=== PATIENT | female | born 1945 | race Caucasian/White ===

== ENCOUNTER 2017-09-10 12:46 | Inpatient (IN) | payer OTHER ==
[~2017-09-10] VITALS: Ht 157.5 cm; Wt 120.5 kg
[2017-09-10] MEDS ORDERED: PANTOPRAZOLE 40 MG/10 ML VIAL IV STA (12:53)
[2017-09-10] MEDS ORDERED: SODIUM CHLORIDE 0.9% 500 ML IVB ONE (12:53)
[2017-09-10] MEDS ORDERED: ONDANSETRON HCL 4 MG/2 ML VIAL IV ONE (13:00)
[2017-09-10 14:25] LABS: Basophils # (auto) 0.1 uL; Hemoglobin 11.4 g/dL (12.2-16.2); Lymphocytes # (auto) 3.5 uL; Monocytes # (auto) 0.7 uL; Nucleated Red Blood Cells % 0.1 %
[2017-09-10 14:26] LABS: Basophils % (auto) 0.6 % (0.0-2.0); Eosinophils # (auto) 0.2 uL; Eosinophils % (auto) 1.4 % (0.0-7.0); Hematocrit 35.1 % (36.0-46.0); Lymphocytes % (auto) 31.1 % (10.0-50.0); Mean Corpuscular Hemoglobin 29.1 pg (28.0-32.0); Mean Corpuscular Hgb Conc. 32.6 g/dL (32.0-36.0); Mean Corpuscular Volume 89.3 fL (80.0-100.0); Monocytes % (auto) 6.4 % (0.0-12.0); Neutrophils # (auto) 6.8 uL; Neutrophils % (auto) 60.5 % (37.0-80.0); Platelet Count (auto) 536 10^3/uL (140-450); Red Blood Cells 3.93 10^6/uL (4.0-5.20); Red Cell Distribution Width 15.5 % (11.8-14.3); White Blood Cell 11.3 10^3/uL (4.4-10.8)
[2017-09-10 14:54] LABS: Albumin 3.4 g/dL (3.4-5.0); BUN/Creatinine Ratio 15.8; Bilirubin, Total 0.5 mg/dL (0.2-1.0); Calcium 9.1 mg/dL (8.5-10.1); Total Protein 7.9 g/dL (6.4-8.2)
[2017-09-10 15:06] LABS: Potassium 2.9 mmol/L (3.5-5.1)
[2017-09-10 15:09] LABS: Urine Bacteria NONE SEEN /hpf (None Seen); Urine Blood Negative /uL (Negative); Urine Mucus FEW (None Seen); Urine WBC 4 /hpf (0 - 5)
[2017-09-10] MEDS ORDERED: POTASSIUM CHL 20MEQ/100ML 100 ML IV ONE (15:15)
[2017-09-10] MEDS: MORPHINE SULFATE 4 MG/ML SYR/VIAL IV PRN ×2 (19:03→23:25)
[2017-09-10] MEDS ORDERED: ALBUAER3 IN (19:46)
[2017-09-10] MEDS ORDERED: CALC-440 PO (19:46)
[2017-09-10] MEDS ORDERED: INDO50CA82 PO (19:46)
[2017-09-10] MEDS ORDERED: NITR0.4S29 SL (19:46)
[2017-09-10] MEDS ORDERED: DULO60CA PO (19:46)
[2017-09-10] MEDS ORDERED: HYDR25TA4 PO (19:46)
[2017-09-10 20:00] VITALS: BP 143/74
[2017-09-10] MEDS: D5W/SOD CHL 0.45%/KCL 20MEQ 1,000 ML IV SCH (21:36)
[2017-09-10] MEDS: metroNIDAZOLE 500MG/100ML 100 ML IV SCH (21:36)
[2017-09-10 22:00] VITALS: BP 143/74
[2017-09-11] VITALS (7 sets, daily range): BP systolic 115–125; BP diastolic 65–73
[2017-09-11] MEDS: MORPHINE SULFATE 4 MG/ML SYR/VIAL IV PRN ×3 (04:07→21:45)
[2017-09-11] MEDS: metroNIDAZOLE 500MG/100ML 100 ML IV SCH ×3 (06:12→21:45)
[2017-09-11] MEDS: D5W/SOD CHL 0.45%/KCL 20MEQ 1,000 ML IV SCH ×3 (06:13→15:56)
[2017-09-11 07:26] LABS: Basophils # (auto) 0 uL; Eosinophils # (auto) 0.2 uL; Eosinophils % (auto) 2.2 % (0.0-7.0); Mean Corpuscular Volume 89.7 fL (80.0-100.0); White Blood Cell 10.5 10^3/uL (4.4-10.8)
[2017-09-11 07:29] LABS: Albumin 3.1 g/dL (3.4-5.0); Basophils % (auto) 0.2 % (0.0-2.0); Calcium 8.8 mg/dL (8.5-10.1); Hematocrit 33.2 % (36.0-46.0); Hemoglobin 10.7 g/dL (12.2-16.2); Lymphocytes # (auto) 3.2 uL; Lymphocytes % (auto) 30.5 % (10.0-50.0); Mean Corpuscular Hemoglobin 28.9 pg (28.0-32.0); Mean Corpuscular Hgb Conc. 32.2 g/dL (32.0-36.0); Monocytes % (auto) 9.3 % (0.0-12.0); Neutrophils % (auto) 57.8 % (37.0-80.0); Nucleated Red Blood Cells % 0.1 %; Platelet Count (auto) 479 10^3/uL (140-450); Potassium 3.4 mmol/L (3.5-5.1); Red Cell Distribution Width 15.1 % (11.8-14.3)
[2017-09-11 07:34] LABS: Bilirubin, Total 0.5 mg/dL (0.2-1.0); Total Protein 6.8 g/dL (6.4-8.2)
[2017-09-11] MEDS: ONDANSETRON HCL 4 MG/2 ML VIAL IV PRN ×2 (09:22→15:39)
[2017-09-11] MEDS: LEVOFLOXACIN 500MG 100 ML IV SCH (09:22)
[2017-09-11] MEDS ORDERED: GASTROGRAFIN 30 ML SOL ONE (12:44)
[2017-09-11] MEDS ORDERED: DONNATAL 5ml ORAL Elix (BELLADONNA ALK-PHENOBARB) PO PRN (12:45)
[2017-09-11] MEDS ORDERED: POTASSIUM CHL 10% (20 MEQ/15ML) 15ml ORAL SOLN PO ONE (12:45)
[2017-09-11] MEDS: HYDROcodone-ACET 10/325MG TAB PO PRN (18:15)
[2017-09-12] MEDS: MORPHINE SULFATE 4 MG/ML SYR/VIAL IV PRN ×4 (02:38→20:39)
[2017-09-12 04:43] VITALS: BP 161/83
[2017-09-12] MEDS: metroNIDAZOLE 500MG/100ML 100 ML IV SCH ×3 (06:12→21:45)
[2017-09-12] MEDS: D5W/SOD CHL 0.45%/KCL 20MEQ 1,000 ML IV SCH ×5 (06:13→21:50)
[2017-09-12 06:36] LABS: Calcium 8.9 mg/dL (8.5-10.1); Potassium 3.6 mmol/L (3.5-5.1)
[2017-09-12 06:42] LABS: BUN/Creatinine Ratio 11.1
[2017-09-12] MEDS ORDERED: ALUM & MAG HYDROX-SIMETH LIQ(MAALOX) 30 ML PO PRN (08:45)
[2017-09-12 08:48] VITALS: BP 128/64
[2017-09-12] MEDS: LEVOFLOXACIN 500MG 100 ML IV SCH (09:53)
[2017-09-12] MEDS: PANTOPRAZOLE 40 MG TAB PO SCH ×2 (09:53→21:45)
[2017-09-12 13:06] VITALS: BP 123/74
[2017-09-12 17:10] VITALS: BP 120/78
[2017-09-12] MEDS: ONDANSETRON HCL 4 MG/2 ML VIAL IV PRN (20:47)
[2017-09-12 22:22] VITALS: BP 128/72
[2017-09-13] MEDS: ONDANSETRON HCL 4 MG/2 ML VIAL IV PRN ×2 (01:56→08:35)
[2017-09-13] MEDS: MORPHINE SULFATE 4 MG/ML SYR/VIAL IV PRN ×2 (01:57→08:34)
[2017-09-13] MEDS: D5W/SOD CHL 0.45%/KCL 20MEQ 1,000 ML IV SCH ×2 (04:45→11:25)
[2017-09-13 05:16] VITALS: BP 134/69
[2017-09-13] MEDS: metroNIDAZOLE 500MG/100ML 100 ML IV SCH ×2 (06:00→14:00)
[2017-09-13 06:19] LABS: Basophils # (auto) 0 uL; Basophils % (auto) 0.3 % (0.0-2.0); Eosinophils # (auto) 0.3 uL; Eosinophils % (auto) 2.6 % (0.0-7.0); Hematocrit 30.2 % (36.0-46.0); Lymphocytes # (auto) 3.2 uL; Lymphocytes % (auto) 25.3 % (10.0-50.0); Mean Corpuscular Hemoglobin 29.4 pg (28.0-32.0); Mean Corpuscular Volume 89.2 fL (80.0-100.0); Monocytes # (auto) 1.4 uL; Monocytes % (auto) 11.2 % (0.0-12.0); Neutrophils # (auto) 7.5 uL; Neutrophils % (auto) 60.6 % (37.0-80.0); Nucleated Red Blood Cells % 0.1 %; Platelet Count (auto) 411 10^3/uL (140-450); Red Blood Cells 3.39 10^6/uL (4.0-5.20); Red Cell Distribution Width 15.3 % (11.8-14.3); White Blood Cell 12.5 10^3/uL (4.4-10.8)
[2017-09-13 06:48] LABS: BUN/Creatinine Ratio 5.8; Calcium 8.6 mg/dL (8.5-10.1); Potassium 3.7 mmol/L (3.5-5.1)
[2017-09-13 09:00] VITALS: BP 140/69
[2017-09-13] MEDS: PANTOPRAZOLE 40 MG TAB PO SCH (09:32)
[2017-09-13] MEDS: LEVOFLOXACIN 500MG 100 ML IV SCH (09:32)
[2017-09-13] MEDS: HYDROcodone-ACET 10/325MG TAB PO PRN (11:10)
[2017-09-13 13:00] VITALS: BP 143/58
== END 2017-09-13 14:54 | DRG 445 ==
LOC: ER 12:46 → EDBD 12:46 → OVERFLOW 12:47 → EEVIPCON 12:47 → EAST 18:36
PROVIDERS: ADMIT Internal Medicine; ATTEND Internal Medicine
DX: K80.20 Calculus of gallbladder without cholecystitis without obstruction (principal); N39.0 Urinary tract infection, site not specified; K76.0 Fatty (change of) liver, not elsewhere classified; N28.1 Cyst of kidney, acquired; E86.0 Dehydration; K52.9 Noninfective gastroenteritis and colitis, unspecified; E87.6 Hypokalemia; J45.909 Unspecified asthma, uncomplicated; K59.00 Constipation, unspecified; N28.89 Other specified disorders of kidney and ureter; Z86.73 Personal history of transient ischemic attack (TIA), and cerebral infarction without residual deficits; I25.2 Old myocardial infarction; Z98.84 Bariatric surgery status; Z90.710 Acquired absence of both cervix and uterus; Z90.49 Acquired absence of other specified parts of digestive tract
CPT/HCPCS: 36415; 71046; 74176; 76775; 80048; 80053; 81001; 82150; 83690; 83735; 85025; 93005; 94761; 96361; 96374; 96375; C9113; J1956; J2405; J3480; J3490

== ENCOUNTER → 2017-12-17 | Outpatient (CLI) | payer OTHER ==
[~2017-12-17] MED LIST: ALBUAER3 IN; CALC-440 PO; DULO60CA PO; HYDR25TA4 PO; INDO50CA82 PO; IOHEXOL 350 MG/ML 100ML IJ ONE; NITR0.4S29 SL
[2017-12-17 09:13] LABS: Calcium 9.1 mg/dL (8.5-10.1); Potassium 3.4 mmol/L (3.5-5.1)
== END | disposition home or self-care (01) ==
LOC: CT 08:10
DX: K80.20 Calculus of gallbladder without cholecystitis without obstruction (principal)
CPT/HCPCS: 36415; 74176; 80048; Q9967

== ENCOUNTER 2019-03-20 17:25 | Inpatient (IN) | payer OTHER ==
[~2019-03-20] VITALS: Ht 167.6 cm; Wt 79.6 kg
[~2019-03-20 17:25] MED LIST changes: -DULO60CA PO; -INDO50CA82 PO; -IOHEXOL 350 MG/ML 100ML IJ ONE; +POTA10TA51 PO
[2019-03-20] MEDS ORDERED: SODIUM CHLORIDE 0.9% 500 ML IVB ONE (17:52)
[2019-03-20] MEDS ORDERED: ONDANSETRON HCL 4 MG/2 ML VIAL IV ONE ×2 (18:00→19:45)
[2019-03-20 18:38] LABS: Basophils # (auto) 0.2 uL; Basophils % (auto) 1.5 % (0.0-2.0); Eosinophils # (auto) 0.1 uL; Eosinophils % (auto) 0.7 % (0.0-7.0); Hematocrit 38.4 % (36.0-46.0); Hemoglobin 12.5 g/dL (12.2-16.2); Lymphocytes # (auto) 3.7 uL; Lymphocytes % (auto) 35.3 % (10.0-50.0); Mean Corpuscular Hemoglobin 29.5 pg (28.0-32.0); Mean Corpuscular Hgb Conc. 32.7 g/dL (32.0-36.0); Mean Corpuscular Volume 90.2 fL (80.0-100.0); Monocytes # (auto) 0.9 uL; Monocytes % (auto) 8.3 % (0.0-12.0); Neutrophils # (auto) 5.6 uL; Neutrophils % (auto) 54.2 % (37.0-80.0); Nucleated Red Blood Cells % 0.1 %; Platelet Count (auto) 443 10^3/uL (140-450); Red Blood Cells 4.26 10^6/uL (4.0-5.20); Red Cell Distribution Width 13.8 % (11.8-14.3); White Blood Cell 10.4 10^3/uL (4.4-10.8)
[2019-03-20 18:47] LABS: Albumin 2.7 g/dL (3.4-5.0); BUN/Creatinine Ratio 22.1; Calcium 8.6 mg/dL (8.5-10.1); Magnesium 1.4 mg/dL (1.6-2.6)
[2019-03-20 18:50] LABS: Bilirubin, Total 0.3 mg/dL (0.2-1.0); Total Protein 6.6 g/dL (6.4-8.2)
[2019-03-20 18:54] LABS: Potassium 2.9 mmol/L (3.5-5.1)
[2019-03-20] MEDS ORDERED: POTASSIUM EFFERVESENT TAB 25 MEQ PO ONE (19:00)
[2019-03-20] MEDS ORDERED: MORPHINE SULFATE 4 MG/ML SYR/VIAL IV ONE (19:45)
[2019-03-20 23:00] VITALS: BP 143/68
--- NOTE | 2019-03-20 23:00 | NUR ---
MS admit from [facility] admitted to tele/MS after SBAR received. Patient oriented to ALEJANDRO ALDANA, shaina RN, unit, room, bed, and unit policies regarding patient care and visiting hours. Patient weighed by bed scale and encouraged to call if they need something. All questions and concerns addressed, patient verbalized understanding. Guard at bed side. Call betancourt with in reach, bed in low position.
[2019-03-20 23:17] LABS: Urine Bacteria NONE SEEN /hpf (None Seen); Urine Blood Negative /uL (Negative); Urine WBC 3 /hpf (0 - 5)
[2019-03-20] MEDS: D5W/SOD CHL 0.45% 1,000 ML IV SCH (23:49)
[2019-03-21] MEDS: MORPHINE SULFATE 4 MG/ML SYR/VIAL IV PRN ×5 (00:18→21:05)
[2019-03-21] MEDS: ONDANSETRON HCL 4 MG/2 ML VIAL IV PRN ×5 (00:26→21:05)
[2019-03-21] MEDS: D5W/SOD CHL 0.45% 1,000 ML IV SCH ×4 (04:41→21:03)
[2019-03-21 05:00] VITALS: BP 121/69
[2019-03-21 06:02] LABS: Basophils # (auto) 0 uL; Basophils % (auto) 0.4 % (0.0-2.0); Eosinophils # (auto) 0.1 uL; Hematocrit 35.6 % (36.0-46.0); Hemoglobin 11.9 g/dL (12.2-16.2); Lymphocytes # (auto) 2.8 uL; Lymphocytes % (auto) 33.2 % (10.0-50.0); Mean Corpuscular Hemoglobin 30.2 pg (28.0-32.0); Mean Corpuscular Hgb Conc. 33.6 g/dL (32.0-36.0); Mean Corpuscular Volume 89.9 fL (80.0-100.0); Monocytes # (auto) 0.8 uL; Monocytes % (auto) 9.9 % (0.0-12.0); Neutrophils # (auto) 4.7 uL; Neutrophils % (auto) 55.5 % (37.0-80.0); Platelet Count (auto) 366 10^3/uL (140-450); Red Blood Cells 3.96 10^6/uL (4.0-5.20); Red Cell Distribution Width 13.8 % (11.8-14.3); White Blood Cell 8.5 10^3/uL (4.4-10.8)
[2019-03-21 06:18] LABS: Albumin 2.4 g/dL (3.4-5.0); Calcium 8.6 mg/dL (8.5-10.1)
[2019-03-21 06:20] LABS: BUN/Creatinine Ratio 14.7
[2019-03-21 06:23] LABS: Bilirubin, Total 0.4 mg/dL (0.2-1.0); Total Protein 5.8 g/dL (6.4-8.2)
[2019-03-21 06:30] LABS: Potassium 2.9 mmol/L (3.5-5.1)
--- NOTE | 2019-03-21 06:43 | NUR ---
CRITICAL POTASSIUM 2.9, PAGED DR. STYLES.
--- NOTE | 2019-03-21 08:00 | NUR ---
OPENING SHIFT NOTE ASSUMED CARE OF PT. PT AWAKE AND ALERT. NO SOB OR SIGNS OF DISTRESS NOTED. INSTRUCTED ON POC AND TO CALL FOR ASSISTANCE PRN. COURTNEY IN LOWEST POSITION WITH SIDE RAILS UP X2. WILL CONTINUE TO MONITOR.
--- NOTE | 2019-03-21 08:11 | NUR ---
SPOKE TO DR. STYLES, ORDERS RECEIVED, WILL PLACE AND CARRY OUT.
[2019-03-21] MEDS ORDERED: POTASSIUM CHL 20 Meq TABLET PO ONE ×3 (08:15→10:30)
[2019-03-21 09:00] VITALS: BP 114/61
[2019-03-21 13:00] VITALS: BP 108/58
[2019-03-21] MEDS: METOCLOPRAMIDE HCL 10 MG TAB PO SCH ×2 (14:56→21:05)
[2019-03-21] MEDS: PANTOPRAZOLE 40 MG/10 ML VIAL INJ IV SCH ×2 (14:56→22:00)
[2019-03-21 17:00] VITALS: BP 107/59
[2019-03-21] MEDS: Ensure HIGH Protein Chocolate 8oz Bottle PO SCH (18:23)
[2019-03-21] MEDS: ZOLPIDEM TARTRATE 5 MG TAB PO PRN (21:06)
[2019-03-21 22:00] VITALS: BP 107/62
[2019-03-22] MEDS: MORPHINE SULFATE 4 MG/ML SYR/VIAL IV PRN ×4 (02:04→20:37)
[2019-03-22] MEDS: ONDANSETRON HCL 4 MG/2 ML VIAL IV PRN ×3 (03:28→20:35)
[2019-03-22 05:00] VITALS: BP 98/54
[2019-03-22] MEDS: D5W/SOD CHL 0.45% 1,000 ML IV SCH ×3 (05:38→22:29)
[2019-03-22] MEDS: METOCLOPRAMIDE HCL 10 MG TAB PO SCH ×3 (06:13→20:39)
--- NOTE | 2019-03-22 08:20 | NUR ---
OPENING SHIFT NOTE ASSUMED CARE OF PATIENT. PATIENT IS AWAKE AND ALERT. NO SOB OR SIGNS OF DISTRESS NOTED. INSTRUCTED ON POC AND TO CALL FOR ASSISTANCE PRN. BED IS IN LOWEST POSITION WITH SIDE RAILS UP X2. WILL CONTINUE TO MONITOR Q1HR.
[2019-03-22 09:15] VITALS: BP 120/58
[2019-03-22] MEDS: PANTOPRAZOLE 40 MG/10 ML VIAL INJ IV SCH ×2 (11:16→20:45)
[2019-03-22] MEDS: Ensure HIGH Protein Chocolate 8oz Bottle PO SCH ×3 (11:30→17:53)
[2019-03-22 13:00] VITALS: BP 109/62
--- NOTE | 2019-03-22 13:00 | NUR ---
PAGED DR STYLES PAGED DOCTOR FOR ORDERS. AWAITING CALL BACK.
--- NOTE | 2019-03-22 16:50 | NUR ---
PAGED DR STYLES RE-PAGED DOCTOR FOR ORDERS. AWAITING CALL BACK.
[2019-03-22 17:14] VITALS: BP 115/63
[2019-03-22] MEDS: ZOLPIDEM TARTRATE 5 MG TAB PO PRN (20:39)
[2019-03-22 22:00] VITALS: BP 106/51
[2019-03-23] MEDS: D5W/SOD CHL 0.45% 1,000 ML IV SCH ×4 (03:10→23:51)
[2019-03-23] MEDS: MORPHINE SULFATE 4 MG/ML SYR/VIAL IV PRN ×3 (03:10→20:21)
[2019-03-23] MEDS: ONDANSETRON HCL 4 MG/2 ML VIAL IV PRN ×3 (03:10→20:21)
[2019-03-23 05:00] VITALS: BP 116/62
[2019-03-23] MEDS: METOCLOPRAMIDE HCL 10 MG TAB PO SCH ×2 (05:28→16:14)
--- NOTE | 2019-03-23 05:42 | NUR ---
ALLERGY: DYE REACTIONS: SWELLING AND HIVES PER PATIENT
[2019-03-23] MEDS ORDERED: GASTROGRAFIN 120 ML SOL ONE (08:54)
[2019-03-23] MEDS ORDERED: BARIUM SULFATE 98% 340 GM PWDR ONE (08:55)
[2019-03-23 09:00] VITALS: BP 115/64
[2019-03-23] MEDS: PANTOPRAZOLE 40 MG/10 ML VIAL INJ IV SCH ×2 (11:35→20:15)
[2019-03-23] MEDS: Ensure HIGH Protein Chocolate 8oz Bottle PO SCH ×3 (11:37→18:15)
[2019-03-23 12:25] VITALS: BP 123/65
[2019-03-23 16:47] VITALS: BP 114/59
[2019-03-23] MEDS ORDERED: METOCLOPRAMIDE HCL 10 MG TAB PO ONE (19:00)
[2019-03-23] MEDS: ZOLPIDEM TARTRATE 5 MG TAB PO PRN (20:25)
[2019-03-23 23:44] VITALS: BP 113/58
[2019-03-24] MEDS: MORPHINE SULFATE 4 MG/ML SYR/VIAL IV PRN (02:02)
[2019-03-24] MEDS: ONDANSETRON HCL 4 MG/2 ML VIAL IV PRN (02:02)
[2019-03-24] MEDS: D5W/SOD CHL 0.45% 1,000 ML IV SCH (05:35)
[2019-03-24 05:58] VITALS: BP 108/53
[2019-03-24] MEDS ORDERED: METOCLOPRAMIDE HCL 10 MG TAB PO SCH (06:00)
[2019-03-24 09:00] VITALS: BP 119/52
[2019-03-24] MEDS ORDERED: METO-517 PO (09:10)
== END 2019-03-24 11:45 | DRG 391 ==
LOC: EDBD 17:25 → EEVIPCON 17:27 → ER 17:27 → OVERFLOW 17:28 → EAST 22:58
PROVIDERS: ADMIT Internal Medicine; ATTEND Internal Medicine
DX: R11.10 Vomiting, unspecified (principal); E43 Unspecified severe protein-calorie malnutrition; E87.6 Hypokalemia; R10.9 Unspecified abdominal pain; M19.90 Unspecified osteoarthritis, unspecified site; J45.909 Unspecified asthma, uncomplicated; Z98.84 Bariatric surgery status; Z86.73 Personal history of transient ischemic attack (TIA), and cerebral infarction without residual deficits; Z90.49 Acquired absence of other specified parts of digestive tract; I25.2 Old myocardial infarction; Z90.710 Acquired absence of both cervix and uterus; Z88.6 Allergy status to analgesic agent; Z88.0 Allergy status to penicillin; Z68.28 Body mass index [BMI] 28.0-28.9, adult
CPT/HCPCS: 36415; 74176; 74245; 80053; 81001; 83690; 83735; 84132; 84443; 85025; 93005; 94761; 96361; 96374; 96375; 96376; C9113; G0378; J2405

== ENCOUNTER 2019-04-30 17:24 | Inpatient (IN) | payer OTHER ==
[~2019-04-30] VITALS: Ht 165.1 cm; Wt 77.6 kg
[~2019-04-30 17:24] MED LIST changes: +METO-517 PO
[2019-04-30 18:16] LABS: Basophils # (auto) 0.1 uL; Basophils % (auto) 0.8 % (0.0-2.0); Eosinophils # (auto) 0 uL; Eosinophils % (auto) 0.5 % (0.0-7.0); Hematocrit 33.9 % (36.0-46.0); Hemoglobin 11.3 g/dL (12.2-16.2); Lymphocytes # (auto) 4.2 uL; Lymphocytes % (auto) 42.5 % (10.0-50.0); Mean Corpuscular Hemoglobin 29.5 pg (28.0-32.0); Mean Corpuscular Hgb Conc. 33.4 g/dL (32.0-36.0); Mean Corpuscular Volume 88.3 fL (80.0-100.0); Monocytes # (auto) 0.9 uL; Monocytes % (auto) 9.3 % (0.0-12.0); Neutrophils # (auto) 4.6 uL; Neutrophils % (auto) 46.9 % (37.0-80.0); Nucleated Red Blood Cells % 0.2 %; Platelet Count (auto) 464 10^3/uL (140-450); Red Blood Cells 3.84 10^6/uL (4.0-5.20); Red Cell Distribution Width 14.1 % (11.8-14.3); White Blood Cell 9.8 10^3/uL (4.4-10.8)
[2019-04-30 18:32] LABS: Albumin 2.5 g/dL (3.4-5.0); Anion Gap 8 (5-15); Blood Urea Nitrogen 15 mg/dL (7-18); Calcium 8.2 mg/dL (8.5-10.1); Carbon Dioxide 31 mmol/L (21-32); Chloride 98 mmol/L (98-107); Glucose 89 mg/dL (74-106); Magnesium 1.1 mg/dL (1.6-2.6); Potassium 3.2 mmol/L (3.5-5.1); Sodium 137 mmol/L (136-145)
[2019-04-30 18:37] LABS: Alanine Aminotransferase 28 U/L (13-56); Alkaline Phosphatase 95 U/L (45-117); Aspartate Aminotransferase 35 U/L (15-37); BUN/Creatinine Ratio 21.4; Bilirubin, Total 0.4 mg/dL (0.2-1.0); GFR African American 105 mL/min; GFR Non-African American 87 mL/min; Total Protein 5.9 g/dL (6.4-8.2)
[2019-04-30 19:42] LABS: Urine Bacteria NONE SEEN /hpf (None Seen); Urine Blood Negative /uL (Negative); Urine Specific Gravity 1.012 (1.001-1.035); Urine WBC 1 /hpf (0 - 5)
[2019-04-30] MEDS ORDERED: ONDANSETRON HCL 4 MG/2 ML VIAL IV ONE (20:00)
[2019-04-30] MEDS ORDERED: ACETAMINOPHEN/CODEINE#3 (300/30mg) TAB PO ONE (20:00)
[2019-04-30] MEDS ORDERED: MORPHINE SULFATE 4 MG/ML SYR/VIAL IV ONE (20:00)
[2019-04-30] MEDS ORDERED: POTASSIUM CHL 20MEQ/100ML 100 ML IV ONE (20:00)
[2019-04-30] MEDS ORDERED: NITROGLYCERIN 0.4 MG SL TAB SL PRN (22:15)
[2019-04-30] MEDS ORDERED: MORPHINE SULF INJ 2 MG/ML SYRINGE 1ML IV PRN (22:15)
[2019-04-30] MEDS ORDERED: ALBUTEROL SULF 2.5 MG/0.5ML(0.5%) NEB SOLN NEB ONE (22:15)
[2019-04-30 22:37] VITALS: BP 117/61
[2019-04-30] MEDS ORDERED: ACETAMINOPHEN 325 MG TAB PO PRN (22:45)
[2019-04-30 23:00] VITALS: BP 125/57
--- NOTE | 2019-04-30 23:00 | NUR ---
Telemetry admit from [facility] admitted to Telemetry unit after SBAR received. Patient oriented to BRADY SAUNDERS RN primary RN, unit, room, bed, and unit policies regarding patient care and visiting hours. Patient now on continuous telemetry monitoring, tele box # 9 and telemetry reading on arrival to unit is Sinus Rhythm. Patient placed on bedside oxygen, weighed by bedscale and encouraged to call if they need something. All questions and concerns addressed, patient verbalized understanding.
--- NOTE | 2019-04-30 23:36 | NUR ---
Dr. Umana at bedside. Ordered for Stress test in the morning.
[2019-05-01] VITALS (7 sets, daily range): BP systolic 108–127; BP diastolic 58–71
[2019-05-01] MEDS ORDERED: MORPHINE SULF INJ 2 MG/ML SYRINGE 1ML ONE (00:54)
[2019-05-01] MEDS ORDERED: OMEP20TA PO (01:09)
[2019-05-01] MEDS: MORPHINE SULF INJ 2 MG/ML SYRINGE 1ML IV PRN ×4 (01:24→21:48)
[2019-05-01] MEDS: ONDANSETRON HCL 4 MG/2 ML VIAL IV PRN ×4 (01:24→21:49)
--- NOTE | 2019-05-01 05:32 | NUR ---
2nd IV insertion IV access obtained, via clean sterile technique by inserting 22 gauge catheter on right wrist after 2 attempt(s). IV secured properly. No trauma to site. Patient tolerated well.
[2019-05-01 06:19] LABS: BUN/Creatinine Ratio 19.4
--- NOTE | 2019-05-01 06:25 | NUR ---
Critical Potassium Teresa Melendez from the lab called with a critical potassium of 2.7. Will page Dr. Zimmerman for orders.
[2019-05-01 06:26] LABS: Potassium 2.7 mmol/L (3.5-5.1)
--- NOTE | 2019-05-01 06:45 | NUR ---
Called/paged Dr. Zimmerman called re: critical potassium of 2.7 . Waiting for call back. Continue care.
[2019-05-01] MEDS ORDERED: LEVOTHYROXINE SODIUM 25 MCG TAB PO ONE (07:00)
--- NOTE | 2019-05-01 07:29 | NUR ---
Endorsed care to day shift RN. Patient in bed with no signs of distress/sob/pain. Guard at bedside.
--- NOTE | 2019-05-01 07:30 | NUR ---
Opening Shift Note RECEIVED REPORT FROM NOC RN. Assumed care of patient, awake and alert. PATIENT ON OXYGENA T 2 LPM VIA NASAL CANNULA WITH no S/S of distress/SOB or pain. BED IN LOWEST, LOCKED POSITION WITH SIDERAILS UP x2 AND CALL LIGHT WITHIN REACH. Instructed on POC and to call for assist PRN, will continue to monitor for changes Q1hr and PRN.
[2019-05-01] MEDS ORDERED: ADENOSINE 58 MG in GIVE UN-DILUTED 0 ML IV STA (08:25)
[2019-05-01] MEDS ORDERED: METOPROLOL TARTRATE 25 MG TAB PO ONE (10:00)
[2019-05-01] MEDS ORDERED: POTASSIUM CHL 10 Meq TABLET PO ONE (10:00)
[2019-05-01] MEDS ORDERED: HCTZ 25 MG TAB PO ONE (10:00)
[2019-05-01] MEDS ORDERED: FERROUS SULFATE 325 MG TAB PO ONE (10:00)
--- NOTE | 2019-05-01 11:04 | NUR ---
DR. STYLES AT THE NURSES STATION. ADVISED OF CRITICAL POTASSIUM LEVEL.
[2019-05-01] MEDS: POTASSIUM CHL 20 Meq TABLET PO SCH ×2 (12:56→14:40)
--- NOTE | 2019-05-01 19:25 | NUR ---
Opening Shift Note Assumed care of patient, awake and alert. No S/S of distress/SOB or pain. Instructed on POC and to call for assist PRN, will continue to monitor for changes Q1hr and PRN. Side rails up x2. Bed locked in lowest position. Call light within reach. Guard at bedside.
--- NOTE | 2019-05-02 03:27 | NUR ---
Endorsed care to Maribeth AKBAR.
[2019-05-02] MEDS: MORPHINE SULF INJ 2 MG/ML SYRINGE 1ML IV PRN ×4 (04:59→23:25)
[2019-05-02 05:00] VITALS: BP 103/53
[2019-05-02] MEDS: ONDANSETRON HCL 4 MG/2 ML VIAL IV PRN ×4 (05:00→23:25)
[2019-05-02 06:25] LABS: BUN/Creatinine Ratio 16.7; Calcium 7.2 mg/dL (8.5-10.1); Potassium 3.4 mmol/L (3.5-5.1)
--- NOTE | 2019-05-02 07:40 | NUR ---
Opening Shift Note Assumed care of patient, awake and alert. No S/S of distress/SOB or pain. Instructed on POC and to call for assist PRN, will continue to monitor for changes Q1hr and PRN. Bed locked in lowest position with two side rails up and call light in reach. Patient states she still has discomfort on chest and abdominal area, per patient Dr is aware, it has been happening for a while now.
[2019-05-02 08:00] VITALS: BP 106/54
[2019-05-02 09:00] VITALS: BP 106/54
[2019-05-02 13:00] VITALS: BP 106/56
--- NOTE | 2019-05-02 13:20 | NUR ---
DR BARTON ROUNDING PATIENT TO HAVE ANGIOGRAM PER DR BARTON. ALL QUESTIONS ANSWERED.
[2019-05-02 17:00] VITALS: BP 130/56
--- NOTE | 2019-05-02 19:35 | NUR ---
Opening Shift Note Assumed care of patient, awake and alert oriented x4. No S/S of distress/SOB or pain noted. Bed is in lowest locked position with bed rails up x2 and call light is within reach of the patient. Guards at the bedside. Instructed on POC and to call for assist PRN.
[2019-05-02 21:28] VITALS: BP 113/67
[2019-05-03 05:18] VITALS: BP 104/66
[2019-05-03] MEDS: ONDANSETRON HCL 4 MG/2 ML VIAL IV PRN ×3 (06:05→17:56)
[2019-05-03] MEDS: MORPHINE SULF INJ 2 MG/ML SYRINGE 1ML IV PRN ×3 (06:05→17:56)
--- NOTE | 2019-05-03 07:41 | NUR ---
Opening Note Assumed pt care from [facility] nurse. Pt is a/ox4 with no s/s of distress or SOB. Pt is currently laying upright in bed with no complaints other than mild pain. Discussed POC with pt; pt verbalized understanding. Safety measures maintained with call light within reach, bed in lowest position and side rails up. Will continue to monitor for changes q1hr and prn.
[2019-05-03 09:00] VITALS: BP 126/59
[2019-05-03 13:00] VITALS: BP 111/60
--- NOTE | 2019-05-03 13:38 | NUR ---
Dr Garrett Umana At Bedside Spoke with pt about plans for heart cath procedure possibly Saturday. Pt verbalized understanding. New orders to make pt NPO after 0000 05/04/2019.
--- NOTE | 2019-05-03 16:49 | NUR ---
PT HOME MEDICATIONS CONCERN PT VOICED A CONCERN FOR NOT HAVING TAKEN HER HOME MEDICATIONS SINCE BEING ADMITTED. PT STATED THAT SHE NORMALLY TAKES POTASSIUM, IRON, HYDROCHLOROTHIAZIDE, WELL OMEPRAZOLE REGULARLY. WILL PASS ALONG TO MD WELL NOC SHIFT. REASSURED PT THAT SHE WAS BEING MEDICALLY MANAGED WHILE HERE; PT VERBALIZED UNDERSTANDING.
[2019-05-03 17:00] VITALS: BP 125/63
--- NOTE | 2019-05-03 19:30 | NUR ---
Opening Assumed care of patient, awake and alert. No S/S of distress/SOB or pain. Insructed on POC and to callfor assist PRN, will continue to monitor for changes Q1hr and PRN. Care Home guards x2 at bedside. Fall and safety precautions in place. Call light within reach.
[2019-05-03 21:45] VITALS: BP 116/62
[2019-05-04] MEDS: MORPHINE SULF INJ 2 MG/ML SYRINGE 1ML IV PRN ×4 (00:08→18:11)
[2019-05-04] MEDS: ONDANSETRON HCL 4 MG/2 ML VIAL IV PRN ×4 (00:08→18:11)
[2019-05-04 05:20] VITALS: BP 106/55
--- NOTE | 2019-05-04 07:34 | NUR ---
Opening Note Assumed pt care from [facility] nurse. Pt is a/ox4 with no s/s of distress or SOB. Pt is currently laying in bed with no complaints. Discussed POC with pt' pt verbalized understanding. Safety measures maintained with call light within reach, bed in lowest position and side rails up. Will continue to monitor for changes q1hr and prn.
[2019-05-04 09:13] VITALS: BP 121/69
[2019-05-04 14:14] VITALS: BP 118/60
--- NOTE | 2019-05-04 14:14 | NUR ---
Nutrition Assessment Notes please see attached link for complete assessment Est. Needs BW 73 [id number] kcal (23-25 kcal/kgBW), 73-79 gms pro (1.0-1.1 gms/kgBW). Will continue to monitor pertinent labs and reassess nutrient need prn Addendum: 05/04/19 at [address] Amended: Links added.
--- NOTE | 2019-05-04 15:44 | NUR ---
EKG DONE PREOP PLACED IN CHART; MD TO SIGN OFF
[2019-05-04 16:00] VITALS: BP 109/52
--- NOTE | 2019-05-04 19:30 | NUR ---
Opening Assumed care of patient, awake and alert. No S/S of distress/SOB or pain. Insructed on POC and to callfor assist PRN, will continue to monitor for changes Q1hr and PRN. Intermediate guards x2 at bedside. Fall and safety precautions in place. Call light within reach.
[2019-05-04 21:00] VITALS: BP 101/56
--- NOTE | 2019-05-04 22:20 | NUR ---
IV insertion IV access obtained, via clean sterile technique by inserting 20 gauge catheter at left wrist after 2 attempts. IV secured properly. No trauma to site. Patient tolerated well. IV removal IV DC'd with clean sterile technique, catheter fully intact. Pressure dressing applied to site. Patient tolerated well. NOTE: LAC 20g removed due to leaking
[2019-05-04 22:22] LABS: Basophils # (auto) 0.1 uL; Basophils % (auto) 0.5 % (0.0-2.0); Eosinophils # (auto) 0.1 uL; Eosinophils % (auto) 0.7 % (0.0-7.0); Hematocrit 31.1 % (36.0-46.0); Hemoglobin 10.3 g/dL (12.2-16.2); Lymphocytes % (auto) 26.5 % (10.0-50.0); Mean Corpuscular Hemoglobin 29.9 pg (28.0-32.0); Mean Corpuscular Hgb Conc. 33.1 g/dL (32.0-36.0); Mean Corpuscular Volume 90.2 fL (80.0-100.0); Monocytes # (auto) 0.9 uL; Neutrophils # (auto) 7.3 uL; Neutrophils % (auto) 64.3 % (37.0-80.0); Platelet Count (auto) 426 10^3/uL (140-450); Red Blood Cells 3.44 10^6/uL (4.0-5.20); Red Cell Distribution Width 14.9 % (11.8-14.3); White Blood Cell 11.3 10^3/uL (4.4-10.8)
[2019-05-04 22:39] LABS: Calcium 7.8 mg/dL (8.5-10.1); Potassium 3.7 mmol/L (3.5-5.1)
[2019-05-04 22:40] LABS: INR 0.96 (0.9-1.15); Partial Thromboplastin Time 24.8 sec (23.64-32.05)
[2019-05-04 22:41] LABS: BUN/Creatinine Ratio 27.7
[2019-05-05] VITALS (11 sets, daily range): BP systolic 106–143; BP diastolic 50–146
--- NOTE | 2019-05-05 | NUR ---
NPO Patient has been educated on NPO status at this time, verbalized understanding and agreement. Bedside table cleared of food and drink. Will continue to monitor
[2019-05-05] MEDS: ONDANSETRON HCL 4 MG/2 ML VIAL IV PRN ×4 (00:26→20:23)
[2019-05-05] MEDS: MORPHINE SULF INJ 2 MG/ML SYRINGE 1ML IV PRN ×4 (00:27→20:23)
--- NOTE | 2019-05-05 06:00 | NUR ---
CHG/CONSENTS Patient educated on how to bathe herself using CHG wipes. Patient able to verbalize understanding and return demonstration of teaching. Patient able to bathe herself independently, complete linen change done, and gown changed. Patient tolerated well. Patient was asked if she felt comfortable signing consents at this time. Patient stated "well I want to know what's wrong with me." Informed patient that if she did not feel comfortable signing at this time, then she should not sign. Also informed her that she is able to speak with surgeon again before procedure. Patient verbalized agreement. Consents not signed at this time. Will inform day shift RN
--- NOTE | 2019-05-05 07:45 | NUR ---
RECEIVED PATIENT ALERT AND ORIENTED X4, NOT IN DISTRESS, CLEAR LS IN BILATERAL LUNG SOUNDS, RR=18 SAT=96, DEEP BREATHING AND COUGHING ENCOURAGED, DEMONSTRATED WELL, DENIED SOB AND CHEST PAIN AT THIS MOMENT, ABDOMEN SOFT WITH ACTIVE BS, LAST BM=05/04/19 REPORTED, KEEP NPO ORDERED, SKIN INTACT WARM TO TOUCH, MODERATE GENERALIZED WEAKNESS AND MORE WEAKNESS ON LT. UPPER AND LOWER SIDE NOTED, RADIAL AND PEDAL PULSES PALPABLE, CAP REFILL<3 SECONDS, RESTING ON BED, DENIED PAIN, HEAD OF BED ELEVATED, BED ON LOWER POSITION, RAILS UP X2, CALL LIGHT ON REACH, INMATE, GUARDS AT BED SIDE, PENDING GREENHOUSE MANAGER, WILL CONTINUE MONITORING.
--- NOTE | 2019-05-05 08:00 | NUR ---
VS T=97.7 RR=18 SAT=96% P=75 AL=848/50, NOT IN DISTRESS, CONSENT FORM ON CHART, CHECK LIST COMLETED, WENT ON BED TO [employer] ACCOUNT ASSISTANT, WILL CONTINUE FOLLOW UP.
[2019-05-05] MEDS ORDERED: IOHEXOL 350 MG/ML 100ML IJ ONE (09:08)
[2019-05-05] MEDS ORDERED: LIDOCAINE 2%HCL (LOCAL ANESTH.) INJ 20ML MDV ONE (09:08)
[2019-05-05] MEDS ORDERED: fentaNYL CITRATE 100 MCG/2 ML VL ONE (09:12)
[2019-05-05] MEDS ORDERED: MIDAZOLAM HCL 1MG/1ML-2 ML VIAL ONE (09:12)
[2019-05-05] MEDS ORDERED: ANGIOMAX 250 MG VIAL IV ONE (09:12)
[2019-05-05] MEDS ORDERED: SODIUM CHL 0.9% 0 ML ONE (09:13)
[2019-05-05] MEDS ORDERED: FAMOTIDINE (10MG/ML) 2ML VL IV ONE (09:26)
[2019-05-05] MEDS ORDERED: methylPREDNISolone SOD SUCC 125 MG/2 ML VL ONE (09:26)
[2019-05-05] MEDS ORDERED: diphenhdrAMINE HCL 50 MG/1 ML VL ONE (09:26)
--- NOTE | 2019-05-05 11:30 | NUR ---
CAME BACK FROM BIOLOGY PROFESSOR, ALERT AND ORIENTED, RT.GROIN ANGIO SITES COVERED WITH DRY AND INTACT ANGIO SEAL DRESSING, NO REDNESS OR EDEMA ON THE SITE NOTED, RT. LEG INTACT PEDAL PULSE PALPABLE, ABLE TO WIGGLE TOES, CAP REFILL<3 SECONDS, KEEP TANO FLAT UNTIL 14:20, WILL BE ABLE OUT OF BED AT 1620 ORDERED, EDUCATION AND INSTRUCTION PROVIDED, VERBALIZED UNDERSTANDING, VS T=97.8 RR=16 SAT=98% P=74 JP=854/68, WILL CONTINUE MONITORING.
--- NOTE | 2019-05-05 18:01 | NUR ---
OUT OF THE BED TO BR, BACK TO THE BED, TOLERATED WELL, RESTING ON BED COMMUNICATING WITH THE ROOMMATE PATIENT.
--- NOTE | 2019-05-05 19:14 | NUR ---
GUARD AT BED SIDE, ANGIO SITE DRY AND INTACT, NOT IN DISTRESS, DENIED PAIN, TOLERATED DINNER TRAY 100%, RESTING ON BED, REPORT WAS GIVEN TO THE [employer] OPERATOR RN.
--- NOTE | 2019-05-05 20:00 | NUR ---
RIGHT GROIN Right groin assessed at this time, noted pressure dressings x2, clean dry intact. No signs of bruising or hematoma. Patient complained of slight soreness around site upon palpation. Right pedal pulse 2+, equal bilaterally, skin color on lower extremity consistent with rest of body, warm, and dry. Patient denies pain to site or right lower extremity. Will continue to monitor
--- NOTE | 2019-05-06 03:40 | NUR ---
RIGHT GROIN Right groin assessed at this time, noted pressure dressings x2, clean dry intact. No signs of bruising or hematoma. Patient denies pain around site upon palpation. Right pedal pulse 2+, equal bilaterally, skin color on lower extremity consistent with rest of body, warm, and dry. Will continue to monitor
[2019-05-06] MEDS: ONDANSETRON HCL 4 MG/2 ML VIAL IV PRN ×4 (03:43→23:14)
[2019-05-06] MEDS: MORPHINE SULF INJ 2 MG/ML SYRINGE 1ML IV PRN ×4 (03:43→23:13)
[2019-05-06 05:00] VITALS: BP 124/70
[2019-05-06 08:00] VITALS: BP 124/71
--- NOTE | 2019-05-06 08:00 | NUR ---
ASSESSMENT NOTE PATIENT IS ALERT ORIENTED X4, RESTING IN BED COMFORTABLY, NO DISTRESS NOTED, DENIES CHEST PAIN OR SHORTNESS OF BREATH, SLEF REPOSITION NEEDED, CALL LIGHT WITHIN REACH.
[2019-05-06 08:37] VITALS: BP 110/65
[2019-05-06 11:50] VITALS: BP 133/63
[2019-05-06 16:37] VITALS: BP 122/62
--- NOTE | 2019-05-06 17:15 | NUR ---
DR STYLES IS HERE FOLLOWING UP ON PT WITH NEW ORDERS WITH NEW ORDERS
[2019-05-06] MEDS ORDERED: methylPREDNISolone SOD SUCC 125 MG/2 ML VL IV ONE (17:30)
[2019-05-06] MEDS ORDERED: diphenhdrAMINE HCL 50 MG/1 ML VL IV PRN (17:30)
--- NOTE | 2019-05-06 18:53 | NUR ---
PT CONTINUE STABLE, CONTINUE MONITORING
--- NOTE | 2019-05-06 19:35 | NUR ---
Opening Shift Note Assumed care of patient, awake and alert. No S/S of distress/SOB or pain. [facility] guards at bedside. Instructed on POC and to call for assist PRN, patient verbalized understanding, call light within reach, will continue to monitor for changes Q1hr and PRN.
[2019-05-06 22:00] VITALS: BP 124/55
--- NOTE | 2019-05-06 23:00 | NUR ---
IV leaking on left wrist, removed with catheter intact, patient tolerated well IV insertion IV access obtained, via clean sterile technique by inserting 22 gauge catheter at after [2] attempt(s). IV secured properly. No trauma to site. Patient tolerated well. NOTE: []
[2019-05-07 05:00] VITALS: BP 111/63
[2019-05-07] MEDS: MORPHINE SULF INJ 2 MG/ML SYRINGE 1ML IV PRN ×2 (05:15→11:46)
[2019-05-07] MEDS: ONDANSETRON HCL 4 MG/2 ML VIAL IV PRN ×2 (05:16→11:47)
[2019-05-07 08:00] VITALS: BP 124/71
--- NOTE | 2019-05-07 08:00 | NUR ---
ASSESSMENT NOTE PATIENT IS ALERT ORIENTED X4, RESTING IN BED COMFORTABLY, NO DISTRESS NOTED, DENIES CHEST PAIN OR SHORTNESS OF BREATH, SLEF REPOSITION NEEDED, CALL LIGHT WITHIN REACH
[2019-05-07 09:00] VITALS: BP 134/70
[2019-05-07 13:00] VITALS: BP 129/66
[2019-05-07 14:39] VITALS: BP 124/71
--- NOTE | 2019-05-07 15:15 | NUR ---
ALL DISCHARGE INSTRUCTION GIVEN TO PT VERBALIS UNDERSTANDING, GUARDS AT BED SIDE AWARE
--- NOTE | 2019-05-07 15:40 | NUR ---
Discharge instructions given as ordered. Encourage to follow up with PMD as instructed. All questions and concerns addressed. Patient verbalized understanding. Medication reconciliation form completed and copy given to patient. IV removed with catheter intact, pressure dressing applied. Telemetry unit returned to ICU. Patient taken to vehicle via wheelchair with all personal belongings, accompanied by two female guards. No distress noted at time of departure.
== END 2019-05-07 15:40 | DRG 287 ==
LOC: EDBD 17:24 → EEVIPCON 17:28 → ER 17:28 → TELE 17:29 → TELE-EAST 23:00
PROVIDERS: ADMIT Nurse Practitioner; ATTEND Internal Medicine
PROC: 4A023N8 Measurement of Cardiac Sampling and Pressure, Bilateral, Percutaneous Approach (ICD-10-PCS; principal; 2019-05-05)
PROC: B2111ZZ Fluoroscopy of Multiple Coronary Arteries using Low Osmolar Contrast (ICD-10-PCS; 2019-05-05)
PROC: B2151ZZ Fluoroscopy of Left Heart using Low Osmolar Contrast (ICD-10-PCS; 2019-05-05)
PROC: B41F1ZZ Fluoroscopy of Right Lower Extremity Arteries using Low Osmolar Contrast (ICD-10-PCS; 2019-05-05)
DX: I20.0 Unstable angina (principal); K92.0 Hematemesis; J45.909 Unspecified asthma, uncomplicated; I10 Essential (primary) hypertension; E87.6 Hypokalemia; I37.1 Nonrheumatic pulmonary valve insufficiency; E03.9 Hypothyroidism, unspecified; M19.90 Unspecified osteoarthritis, unspecified site; Z86.73 Personal history of transient ischemic attack (TIA), and cerebral infarction without residual deficits; Z90.710 Acquired absence of both cervix and uterus; Z98.84 Bariatric surgery status; Z88.5 Allergy status to narcotic agent; Z88.6 Allergy status to analgesic agent; Z88.0 Allergy status to penicillin; Z91.041 Radiographic dye allergy status; Z90.49 Acquired absence of other specified parts of digestive tract; Z90.89 Acquired absence of other organs; Z80.9 Family history of malignant neoplasm, unspecified
CPT/HCPCS: 36415; 70450; 71045; 75710; 78452; 80048; 80053; 81001; 83735; 83880; 84484; 85025; 85610; 85730; 86850; 86900; 86901; 93005; 93017; 93460; 94761; 96361; 96374; 96375; G0378; J0153; J2250; J2405; J3480; J3490

== ENCOUNTER 2019-09-16 13:53 | Inpatient (IN) | payer OTHER ==
[~2019-09-16] VITALS: Ht 167.6 cm; Wt 68.5 kg
[~2019-09-16 13:53] MED LIST changes: +CEL100T PO; +OMEP20TA PO
[2019-09-16 14:42] LABS: Basophils # (auto) 0 uL; Eosinophils # (auto) 0 uL; Eosinophils % (auto) 0.3 % (0.0-7.0); Hemoglobin 8.3 g/dL (12.2-16.2); Lymphocytes # (auto) 2.8 uL; White Blood Cell 7.7 10^3/uL (4.4-10.8)
[2019-09-16 14:43] LABS: Basophils % (auto) 0.4 % (0.0-2.0); Hematocrit 26.4 % (36.0-46.0); Mean Corpuscular Hemoglobin 22.5 pg (28.0-32.0); Mean Corpuscular Hgb Conc. 31.6 g/dL (32.0-36.0); Mean Corpuscular Volume 71.3 fL (80.0-100.0); Monocytes # (auto) 0.7 uL; Monocytes % (auto) 9.5 % (0.0-12.0); Neutrophils # (auto) 4.1 uL; Neutrophils % (auto) 52.8 % (37.0-80.0); Platelet Count (auto) 653 10^3/uL (140-450); Red Cell Distribution Width 18.1 % (11.8-14.3)
[2019-09-16 15:00] LABS: Albumin 2.5 g/dL (3.4-5.0); Anion Gap 8 (5-15); Blood Urea Nitrogen 11 mg/dL (7-18); Calcium 8.3 mg/dL (8.5-10.1); Carbon Dioxide 28 mmol/L (21-32); Chloride 103 mmol/L (98-107); Glucose 85 mg/dL (74-106); Sodium 139 mmol/L (136-145)
[2019-09-16 15:05] LABS: Alanine Aminotransferase 28 U/L (13-56); Alkaline Phosphatase 102 U/L (45-117); Aspartate Aminotransferase 41 U/L (15-37); BUN/Creatinine Ratio 16.9; Bilirubin, Total 0.4 mg/dL (0.2-1.0); GFR African American 115 mL/min; GFR Non-African American 95 mL/min; Total Protein 6.3 g/dL (6.4-8.2)
[2019-09-16 15:17] LABS: Potassium 2.3 mmol/L (3.5-5.1)
[2019-09-16] MEDS ORDERED: SODIUM CHLORIDE 0.9% 1,000 ML IVB ONE (15:17)
[2019-09-16] MEDS ORDERED: MORPHINE SULF INJ 2 MG/ML SYRINGE 1ML IV ONE (15:30)
[2019-09-16] MEDS ORDERED: ONDANSETRON HCL 4 MG/2 ML VIAL IV ONE (15:30)
[2019-09-16] MEDS: POTASSIUM CHL 20MEQ/100ML 100 ML IV SCH ×4 (15:49→20:48)
[2019-09-16 16:05] LABS: Magnesium 1.5 mg/dL (1.6-2.6)
[2019-09-16 16:26] LABS: Urine Bacteria FEW /hpf (None Seen); Urine Blood Negative /uL (Negative); Urine Hyaline Cast FEW /lpf (0 - 2); Urine Mucus FEW (None Seen); Urine Specific Gravity 1.022 (1.001-1.035); Urine WBC 13 /hpf (0 - 5)
[2019-09-16 16:29] LABS: INR 1.06 (0.9-1.15); Partial Thromboplastin Time 25.3 sec (23.64-32.05)
[2019-09-16] MEDS: MAGNESIUM SULFATE 1GM/100ML 100 ML IV SCH ×2 (17:45→20:47)
[2019-09-16] MEDS ORDERED: cefTRIAXone 1GM/50ML D5W 50 ML IV ONE (17:45)
[2019-09-16] MEDS ORDERED: D5W/SOD CHL 0.45%/KCL 20MEQ 1,000 ML IV ONE (18:15)
[2019-09-16] MEDS ORDERED: MORPHINE SULF INJ 2 MG/ML SYRINGE 1ML IV PRN (18:15)
[2019-09-16] MEDS ORDERED: NITROGLYCERIN 0.4 MG SL TAB SL PRN (18:15)
[2019-09-16 20:10] VITALS: BP 119/73
[2019-09-16] MEDS: MORPHINE SULFATE 4 MG/ML SYR/VIAL IV PRN (20:50)
[2019-09-16] MEDS: ONDANSETRON HCL 4 MG/2 ML VIAL IV PRN (21:09)
[2019-09-16] MEDS: PANTOPRAZOLE 40 MG/10 ML VIAL INJ IV SCH (21:31)
[2019-09-16 21:49] VITALS: BP 119/73
[2019-09-17] VITALS (11 sets, daily range): BP systolic 102–112; BP diastolic 44–66
[2019-09-17] MEDS: ONDANSETRON HCL 4 MG/2 ML VIAL IV PRN ×5 (02:20→20:36)
[2019-09-17] MEDS: MORPHINE SULFATE 4 MG/ML SYR/VIAL IV PRN ×4 (02:20→20:36)
[2019-09-17 07:01] LABS: Monocytes # (auto) 0.7 uL
[2019-09-17 07:06] LABS: Basophils # (auto) 0 uL; Basophils % (auto) 0.6 % (0.0-2.0); Eosinophils # (auto) 0.1 uL; Hematocrit 22.3 % (36.0-46.0); Lymphocytes # (auto) 2.5 uL; Lymphocytes % (auto) 37.7 % (10.0-50.0); Mean Corpuscular Hemoglobin 22.3 pg (28.0-32.0); Mean Corpuscular Hgb Conc. 30.6 g/dL (32.0-36.0); Mean Corpuscular Volume 72.6 fL (80.0-100.0); Monocytes % (auto) 10.8 % (0.0-12.0); Neutrophils # (auto) 3.2 uL; Neutrophils % (auto) 48.9 % (37.0-80.0); Nucleated Red Blood Cells % 0.1 %; Platelet Count (auto) 535 10^3/uL (140-450); Red Blood Cells 3.07 10^6/uL (4.0-5.20); White Blood Cell 6.6 10^3/uL (4.4-10.8)
[2019-09-17 07:23] LABS: Hemoglobin 6.8 g/dL (12.2-16.2)
[2019-09-17 07:42] LABS: BUN/Creatinine Ratio 12.1; Bilirubin, Total 0.3 mg/dL (0.2-1.0); Calcium 7.8 mg/dL (8.5-10.1); Total Protein 5.1 g/dL (6.4-8.2)
[2019-09-17 07:45] LABS: Potassium 2.6 mmol/L (3.5-5.1)
[2019-09-17] MEDS: POTASSIUM EFFERVESENT TAB 25 MEQ PO SCH ×3 (09:49→14:00)
[2019-09-17] MEDS: LEVOTHYROXINE SODIUM 25 MCG TAB PO SCH (09:50)
[2019-09-17] MEDS: POTASSIUM CHL 20 Meq TABLET PO SCH (09:50)
[2019-09-17] MEDS: PANTOPRAZOLE 40 MG/10 ML VIAL INJ IV SCH ×2 (09:50→21:35)
[2019-09-17] MEDS: levoFLOXacin 500 MG TAB PO SCH (09:52)
[2019-09-17] MEDS ORDERED: GASTROGRAFIN 120 ML SOL ONE (10:09)
[2019-09-17] MEDS ORDERED: EZ-GAS II GRANULES (RADIOLOGY USE) PO ONE (10:09)
[2019-09-17] MEDS ORDERED: POTASSIUM EFFERVESENT TAB 25 MEQ PO SCH (21:00)
[2019-09-18] MEDS: MORPHINE SULFATE 4 MG/ML SYR/VIAL IV PRN ×4 (01:56→21:13)
[2019-09-18] MEDS: ONDANSETRON HCL 4 MG/2 ML VIAL IV PRN ×4 (01:57→21:14)
[2019-09-18 05:19] VITALS: BP 115/59
[2019-09-18 06:06] LABS: Basophils # (auto) 0 uL; Basophils % (auto) 0.8 % (0.0-2.0); Eosinophils # (auto) 0.1 uL; Eosinophils % (auto) 1.8 % (0.0-7.0); Hemoglobin 9.9 g/dL (12.2-16.2); Lymphocytes % (auto) 39.1 % (10.0-50.0); Mean Corpuscular Hemoglobin 24.1 pg (28.0-32.0); Mean Corpuscular Volume 75.1 fL (80.0-100.0); Monocytes # (auto) 0.6 uL; Monocytes % (auto) 12.3 % (0.0-12.0); Neutrophils # (auto) 2.4 uL; Nucleated Red Blood Cells % 0.1 %; Platelet Count (auto) 501 10^3/uL (140-450); Red Blood Cells 4.12 10^6/uL (4.0-5.20); Red Cell Distribution Width 18.1 % (11.8-14.3); White Blood Cell 5.2 10^3/uL (4.4-10.8)
[2019-09-18 06:19] LABS: Albumin 2.1 g/dL (3.4-5.0); Calcium 8.2 mg/dL (8.5-10.1); Potassium 3.5 mmol/L (3.5-5.1)
[2019-09-18 06:23] LABS: BUN/Creatinine Ratio 5.7; Bilirubin, Total 0.8 mg/dL (0.2-1.0); Total Protein 5.4 g/dL (6.4-8.2)
[2019-09-18] MEDS ORDERED: LIDOCAINE VISCOUS 2% 15ML UD ONE (08:22)
[2019-09-18] MEDS ORDERED: SODIUM CHLORIDE LOCK 10 ML ONE (08:22)
[2019-09-18] MEDS ORDERED: diphenhdrAMINE HCL 50 MG/1 ML VL ONE (08:23)
[2019-09-18 09:00] VITALS: BP_SYST 106; BP_SYST 108; BP_DIAS 58; BP_DIAS 66
[2019-09-18] MEDS: PANTOPRAZOLE 40 MG/10 ML VIAL INJ IV SCH ×2 (10:00→21:41)
[2019-09-18] MEDS: POTASSIUM CHL 20 Meq TABLET PO SCH (10:00)
[2019-09-18] MEDS: levoFLOXacin 500 MG TAB PO SCH (10:00)
[2019-09-18] MEDS: LEVOTHYROXINE SODIUM 25 MCG TAB PO SCH (10:00)
[2019-09-18] MEDS: MIDAZOLAM HCL 5 MG/ML-1ML VIAL ONE ×2 (11:08→11:13)
[2019-09-18] MEDS: fentaNYL CITRATE 100 MCG/2 ML VL ONE ×2 (11:08→11:13)
[2019-09-18 13:00] VITALS: BP 106/61
[2019-09-18] MEDS ORDERED: GASTROGRAFIN 120 ML SOL ONE (13:56)
[2019-09-18] MEDS ORDERED: EZ-GAS II GRANULES (RADIOLOGY USE) PO ONE (13:56)
[2019-09-18 17:00] VITALS: BP 144/59
[2019-09-18 22:00] VITALS: BP 112/62
[2019-09-19] MEDS: MORPHINE SULFATE 4 MG/ML SYR/VIAL IV PRN ×5 (00:46→18:41)
[2019-09-19] MEDS: ONDANSETRON HCL 4 MG/2 ML VIAL IV PRN ×5 (00:46→18:42)
[2019-09-19 05:00] VITALS: BP 118/65
[2019-09-19 07:16] LABS: Eosinophils # (auto) 0 uL; Monocytes # (auto) 1.1 uL; Nucleated Red Blood Cells % 0.1 %; Red Cell Distribution Width 18.6 % (11.8-14.3)
[2019-09-19 07:19] LABS: Basophils # (auto) 0 uL; Basophils % (auto) 0.5 % (0.0-2.0); Eosinophils % (auto) 0.3 % (0.0-7.0); Hematocrit 28.6 % (36.0-46.0); Hemoglobin 9.3 g/dL (12.2-16.2); Lymphocytes # (auto) 2.2 uL; Lymphocytes % (auto) 27.2 % (10.0-50.0); Mean Corpuscular Hemoglobin 23.9 pg (28.0-32.0); Mean Corpuscular Hgb Conc. 32.4 g/dL (32.0-36.0); Mean Corpuscular Volume 73.7 fL (80.0-100.0); Monocytes % (auto) 13.4 % (0.0-12.0); Neutrophils # (auto) 4.8 uL; Neutrophils % (auto) 58.6 % (37.0-80.0); Platelet Count (auto) 492 10^3/uL (140-450); Red Blood Cells 3.87 10^6/uL (4.0-5.20); White Blood Cell 8.1 10^3/uL (4.4-10.8)
[2019-09-19 07:34] LABS: BUN/Creatinine Ratio 10.5; Calcium 8.2 mg/dL (8.5-10.1)
[2019-09-19 07:48] LABS: Potassium 2.8 mmol/L (3.5-5.1)
[2019-09-19 09:00] VITALS: BP 123/72
[2019-09-19] MEDS: levoFLOXacin 500 MG TAB PO SCH (09:19)
[2019-09-19] MEDS: POTASSIUM CHL 20 Meq TABLET PO SCH ×5 (09:19→14:00)
[2019-09-19] MEDS: LEVOTHYROXINE SODIUM 25 MCG TAB PO SCH (09:20)
[2019-09-19] MEDS: PANTOPRAZOLE 40 MG/10 ML VIAL INJ IV SCH (09:21)
[2019-09-19] MEDS: CHOLESTYRAMINE 4 GM POWDER PO SCH (11:10)
[2019-09-19 13:00] VITALS: BP 135/65
[2019-09-19 17:00] VITALS: BP 116/58
[2019-09-19 20:00] VITALS: BP 119/53
[2019-09-19] MEDS: CLINDAMYCIN 600MG IV 50 ML IV SCH (21:47)
[2019-09-19 22:00] VITALS: BP 119/53
[2019-09-20] VITALS (7 sets, daily range): BP systolic 98–139; BP diastolic 54–88
[2019-09-20] MEDS: MORPHINE SULFATE 4 MG/ML SYR/VIAL IV PRN ×4 (03:58→20:31)
[2019-09-20] MEDS: ONDANSETRON HCL 4 MG/2 ML VIAL IV PRN ×4 (04:00→20:31)
[2019-09-20] MEDS: CLINDAMYCIN 600MG IV 50 ML IV SCH ×3 (06:17→21:27)
[2019-09-20] MEDS: LEVOTHYROXINE SODIUM 25 MCG TAB PO SCH (06:30)
[2019-09-20 07:03] LABS: BUN/Creatinine Ratio 9.2; Calcium 8.8 mg/dL (8.5-10.1)
[2019-09-20] MEDS: levoFLOXacin 500 MG TAB PO SCH (09:09)
[2019-09-20] MEDS: POTASSIUM CHL 20 Meq TABLET PO SCH (09:09)
[2019-09-20] MEDS: PANTOPRAZOLE 40 MG TAB PO SCH (09:09)
[2019-09-20] MEDS: CHOLESTYRAMINE 4 GM POWDER PO SCH (11:46)
[2019-09-21] MEDS: ONDANSETRON HCL 4 MG/2 ML VIAL IV PRN ×6 (00:46→22:20)
[2019-09-21] MEDS: MORPHINE SULFATE 4 MG/ML SYR/VIAL IV PRN ×6 (00:46→22:20)
[2019-09-21 05:00] VITALS: BP 104/62
[2019-09-21] MEDS: CLINDAMYCIN 600MG IV 50 ML IV SCH ×3 (06:33→22:15)
[2019-09-21] MEDS: LEVOTHYROXINE SODIUM 25 MCG TAB PO SCH (06:33)
[2019-09-21 07:09] LABS: Basophils # (auto) 0 uL; Eosinophils # (auto) 0.1 uL; Monocytes # (auto) 0.9 uL; Monocytes % (auto) 10.8 % (0.0-12.0); Platelet Count (auto) 516 10^3/uL (140-450)
[2019-09-21 07:11] LABS: Basophils % (auto) 0.3 % (0.0-2.0); Eosinophils % (auto) 1.5 % (0.0-7.0); Hematocrit 27.9 % (36.0-46.0); Lymphocytes # (auto) 2.1 uL; Mean Corpuscular Hemoglobin 23.9 pg (28.0-32.0); Mean Corpuscular Hgb Conc. 32.4 g/dL (32.0-36.0); Mean Corpuscular Volume 73.8 fL (80.0-100.0); Neutrophils % (auto) 61.4 % (37.0-80.0); Red Blood Cells 3.78 10^6/uL (4.0-5.20); Red Cell Distribution Width 19.5 % (11.8-14.3); White Blood Cell 8.1 10^3/uL (4.4-10.8)
[2019-09-21 07:36] LABS: Calcium 8.5 mg/dL (8.5-10.1); Potassium 4.3 mmol/L (3.5-5.1)
[2019-09-21 07:38] LABS: BUN/Creatinine Ratio 12.9
[2019-09-21 09:00] VITALS: BP 114/59
[2019-09-21] MEDS: levoFLOXacin 500 MG TAB PO SCH (09:05)
[2019-09-21] MEDS: POTASSIUM CHL 20 Meq TABLET PO SCH (09:18)
[2019-09-21] MEDS: PANTOPRAZOLE 40 MG TAB PO SCH (09:18)
[2019-09-21] MEDS: CHOLESTYRAMINE 4 GM POWDER PO SCH (11:48)
[2019-09-21 13:00] VITALS: BP 122/62
[2019-09-21 17:00] VITALS: BP 114/60
[2019-09-21 21:58] VITALS: BP 121/61
[2019-09-22] MEDS: ONDANSETRON HCL 4 MG/2 ML VIAL IV PRN ×3 (02:16→12:34)
[2019-09-22] MEDS: MORPHINE SULFATE 4 MG/ML SYR/VIAL IV PRN ×3 (02:19→12:34)
[2019-09-22 05:00] VITALS: BP 124/57
[2019-09-22] MEDS: CLINDAMYCIN 600MG IV 50 ML IV SCH (06:33)
[2019-09-22] MEDS: LEVOTHYROXINE SODIUM 25 MCG TAB PO SCH (06:33)
[2019-09-22 06:44] LABS: Eosinophils # (auto) 0.1 uL
[2019-09-22 06:49] LABS: Basophils # (auto) 0.1 uL; Basophils % (auto) 0.6 % (0.0-2.0); Eosinophils % (auto) 1.1 % (0.0-7.0); Hematocrit 28.4 % (36.0-46.0); Hemoglobin 9.2 g/dL (12.2-16.2); Lymphocytes # (auto) 1.7 uL; Lymphocytes % (auto) 17.5 % (10.0-50.0); Mean Corpuscular Hemoglobin 24.2 pg (28.0-32.0); Mean Corpuscular Hgb Conc. 32.5 g/dL (32.0-36.0); Mean Corpuscular Volume 74.2 fL (80.0-100.0); Monocytes # (auto) 0.9 uL; Monocytes % (auto) 9.7 % (0.0-12.0); Neutrophils # (auto) 6.8 uL; Neutrophils % (auto) 71.1 % (37.0-80.0); Platelet Count (auto) 497 10^3/uL (140-450); Red Blood Cells 3.83 10^6/uL (4.0-5.20); White Blood Cell 9.5 10^3/uL (4.4-10.8)
[2019-09-22 06:56] LABS: Red Cell Distribution Width 20.6 % (11.8-14.3)
[2019-09-22 07:00] LABS: BUN/Creatinine Ratio 12.2; Calcium 8.5 mg/dL (8.5-10.1)
[2019-09-22] MEDS: levoFLOXacin 500 MG TAB PO SCH (09:12)
[2019-09-22 09:21] VITALS: BP 121/62
[2019-09-22] MEDS: POTASSIUM CHL 20 Meq TABLET PO SCH (10:51)
[2019-09-22] MEDS: PANTOPRAZOLE 40 MG TAB PO SCH (10:52)
[2019-09-22] MEDS: CHOLESTYRAMINE 4 GM POWDER PO SCH (12:27)
[2019-09-22 13:00] VITALS: BP 123/66
[2019-09-22 13:59] VITALS: BP 123/66
== END 2019-09-22 15:23 | DRG 812 ==
LOC: EDBD 13:53 → ER 13:53 → EEVIPCON 13:53 → OVERFLOW 13:54 → EAST 20:00
PROVIDERS: ADMIT Internal Medicine; ATTEND Internal Medicine
PROC: 30233N1 Transfusion of Nonautologous Red Blood Cells into Peripheral Vein, Percutaneous Approach (ICD-10-PCS; principal; 2019-09-17)
DX: D64.9 Anemia, unspecified (principal); L03.90 Cellulitis, unspecified; N39.0 Urinary tract infection, site not specified; E44.0 Moderate protein-calorie malnutrition; E87.6 Hypokalemia; R11.2 Nausea with vomiting, unspecified; R07.9 Chest pain, unspecified; I25.10 Atherosclerotic heart disease of native coronary artery without angina pectoris; I10 Essential (primary) hypertension; J45.909 Unspecified asthma, uncomplicated; Z96.651 Presence of right artificial knee joint; E83.42 Hypomagnesemia; I80.9 Phlebitis and thrombophlebitis of unspecified site; Z88.0 Allergy status to penicillin; Z88.6 Allergy status to analgesic agent; Z88.5 Allergy status to narcotic agent; Z79.899 Other long term (current) drug therapy; Z79.51 Long term (current) use of inhaled steroids; Z90.49 Acquired absence of other specified parts of digestive tract; Z90.710 Acquired absence of both cervix and uterus; Z80.0 Family history of malignant neoplasm of digestive organs; Z91.041 Radiographic dye allergy status; Z80.1 Family history of malignant neoplasm of trachea, bronchus and lung; Z86.73 Personal history of transient ischemic attack (TIA), and cerebral infarction without residual deficits; I25.2 Old myocardial infarction
CPT/HCPCS: 36415; 71045; 74176; 74245; 80048; 80053; 81001; 82150; 83690; 83735; 83880; 84484; 85025; 85610; 85730; 86850; 86900; 86901; 86920; 87081; 87086; 93005; C9113; G0378; J0696; J2250; J2405; J3480; J3490

== ENCOUNTER 2019-10-01 13:35 | Inpatient (IN) | payer OTHER ==
[~2019-10-01] VITALS: Ht 167.6 cm; Wt 90.0 kg
[2019-10-01] MEDS ORDERED: SODIUM CHLORIDE 0.9% 1,000 ML IV ONE (13:55)
[2019-10-01 14:56] LABS: Alanine Aminotransferase 22 U/L (13-56); Albumin 2.6 g/dL (3.4-5.0); Anion Gap 8 (5-15); Aspartate Aminotransferase 51 U/L (15-37); Blood Urea Nitrogen 8 mg/dL (7-18); Calcium 8.8 mg/dL (8.5-10.1); Carbon Dioxide 26 mmol/L (21-32); Chloride 103 mmol/L (98-107); GFR African American 101 mL/min; GFR Non-African American 83 mL/min; Glucose 89 mg/dL (74-106); Sodium 137 mmol/L (136-145)
[2019-10-01 14:59] LABS: Alkaline Phosphatase 88 U/L (45-117); Bilirubin, Total 1.1 mg/dL (0.2-1.0); Total Protein 7.2 g/dL (6.4-8.2)
[2019-10-01 15:07] LABS: Potassium 2.3 mmol/L (3.5-5.1)
[2019-10-01 15:08] LABS: Hemoglobin 10.1 g/dL (12.2-16.2); Lymphocytes # (auto) 1.9 10 ^3/uL (0.4-5.4); Monocytes # (auto) 1.1 10 ^3/uL (0-1.3); Neutrophils # (auto) 3.7 10 ^3/uL (1.6-8.6); Nucleated Red Blood Cells % 0.1 %
[2019-10-01 15:10] LABS: Basophils # (auto) 0.1 10 ^3/uL (0-0.2); Eosinophils # (auto) 0.1 10 ^3/uL (0-0.8); Eosinophils % (auto) 0.8 % (0.0-7.0); Hematocrit 31.2 % (36.0-46.0); Lymphocytes % (auto) 27.5 % (10.0-50.0); Mean Corpuscular Hemoglobin 23.9 pg (28.0-32.0); Mean Corpuscular Hgb Conc. 32.5 g/dL (32.0-36.0); Mean Corpuscular Volume 73.6 fL (80.0-100.0); Monocytes % (auto) 15.6 % (0.0-12.0); Neutrophils % (auto) 55.1 % (37.0-80.0); Platelet Count (auto) 537 10^3/uL (140-450); Red Blood Cells 4.23 10^6/uL (4.0-5.20); White Blood Cell 6.8 10^3/uL (4.4-10.8)
[2019-10-01 15:15] LABS: Red Cell Distribution Width 22.5 % (11.8-14.3)
[2019-10-01] MEDS ORDERED: POTASSIUM CHL 20MEQ/100ML 100 ML IV ONE (15:15)
[2019-10-01] MEDS ORDERED: MORPHINE SULF INJ 2 MG/ML SYRINGE 1ML IV PRN (15:45)
[2019-10-01] MEDS ORDERED: NITROGLYCERIN 0.4 MG SL TAB SL PRN (15:45)
[2019-10-01] MEDS ORDERED: CALCIUM W/VIT D (600MG/400IU) TAB PO ONE (15:45)
[2019-10-01] MEDS ORDERED: D5W/SOD CHL 0.45%/KCL 20MEQ 1,000 ML IV ONE (15:56)
[2019-10-01] MEDS: POTASSIUM CHL 20 Meq TABLET PO SCH ×2 (16:00→18:32)
[2019-10-01] MEDS ORDERED: POTASSIUM CHL 10 Meq TABLET PO SCH (16:00)
[2019-10-01] MEDS: ONDANSETRON HCL 4 MG/2 ML VIAL IV PRN ×2 (16:02→17:07)
[2019-10-01] MEDS: D5W/SOD CHL 0.45%/KCL 20MEQ 1,000 ML IV SCH (16:03)
[2019-10-01] MEDS: HYDROcodone-ACET 10/325MG TAB PO PRN ×2 (17:07→21:25)
[2019-10-01 17:26] VITALS: BP 136/78
--- NOTE | 2019-10-01 19:00 | NUR ---
Opening Shift Note Assumed care of patient, awake and alert. No S/S of distress/SOB or pain. Instructed on POC and to call for assist PRN, will continue to monitor for changes Q1hr and PRN.
--- NOTE | 2019-10-01 21:00 | NUR ---
Dr. Zimmerman paged: RAFFY pastrana MD d/t patient complaining of itchiness. Dr. Zimmerman returned page and new orders were received and verified.
[2019-10-01] MEDS: diphenhdrAMINE HCL 50 MG/1 ML VL IV PRN (21:23)
[2019-10-01] MEDS: METOCLOPRAMIDE HCL 10 MG TAB PO SCH (21:32)
[2019-10-01 21:47] VITALS: BP 113/57
--- NOTE | 2019-10-02 00:44 | NUR ---
Care endorsed to Tanya AKBAR.
--- NOTE | 2019-10-02 00:46 | NUR ---
Assumed care of patient. Patient resting in bed with breaths even and unlabored.
[2019-10-02] MEDS: D5W/SOD CHL 0.45%/KCL 20MEQ 1,000 ML IV SCH ×3 (00:56→21:31)
[2019-10-02] MEDS: diphenhdrAMINE HCL 50 MG/1 ML VL IV PRN ×4 (01:37→21:33)
[2019-10-02] MEDS: HYDROcodone-ACET 10/325MG TAB PO PRN ×5 (01:38→21:32)
[2019-10-02 05:11] VITALS: BP 108/57
[2019-10-02] MEDS: PANTOPRAZOLE 40 MG TAB PO SCH (06:18)
[2019-10-02] MEDS: METOCLOPRAMIDE HCL 10 MG TAB PO SCH ×3 (06:18→21:50)
[2019-10-02 06:19] LABS: Basophils # (auto) 0 10 ^3/uL (0-0.2); Basophils % (auto) 0.5 % (0.0-2.0); Hemoglobin 9.1 g/dL (12.2-16.2)
[2019-10-02 06:22] LABS: Eosinophils # (auto) 0.1 10 ^3/uL (0-0.8); Hematocrit 28.4 % (36.0-46.0); Lymphocytes # (auto) 2.3 10 ^3/uL (0.4-5.4); Lymphocytes % (auto) 31.6 % (10.0-50.0); Mean Corpuscular Hemoglobin 23.8 pg (28.0-32.0); Mean Corpuscular Volume 74.4 fL (80.0-100.0); Monocytes # (auto) 1.1 10 ^3/uL (0-1.3); Monocytes % (auto) 14.7 % (0.0-12.0); Neutrophils # (auto) 3.7 10 ^3/uL (1.6-8.6); Neutrophils % (auto) 51.2 % (37.0-80.0); Nucleated Red Blood Cells % 0.2 %; Platelet Count (auto) 502 10^3/uL (140-450); Red Blood Cells 3.82 10^6/uL (4.0-5.20); White Blood Cell 7.3 10^3/uL (4.4-10.8)
[2019-10-02 06:26] LABS: Red Cell Distribution Width 21.8 % (11.8-14.3)
[2019-10-02 06:44] LABS: BUN/Creatinine Ratio 12.3; Calcium 8.1 mg/dL (8.5-10.1)
--- NOTE | 2019-10-02 06:45 | NUR ---
CRITICAL LAB: RECEIVED A CRITICAL LAB VALUE OF 2.6 POTASSIUM. TO CALL AND NOTIFY
[2019-10-02 06:46] LABS: Potassium 2.6 mmol/L (3.5-5.1)
--- NOTE | 2019-10-02 06:54 | NUR ---
CALLED AND LEFT MESSAGE TO DR. STYLES: LEFT MESSAGE WITH DR STYLES EXCHANGE REGARDING PATIENTS CRITICAL POTASSIUM VALUE. WAITING FOR CALL BACK FROM THE MD.
--- NOTE | 2019-10-02 07:10 | NUR ---
CLOSING NOTE: CARE ENDORSED TO DAY SHIFT NURSE. PATIENT RESTING IN BED WITH BREATHS EVEN AND UNLABORED. MADE DAY RN AWARE THAT PATIENT HAD CRITICAL LAB VALUE AND STILL WAITING FOR CALL BACK FROM JENSEN HALL.
[2019-10-02 08:37] VITALS: BP 98/61
[2019-10-02] MEDS: POTASSIUM CHL 20 Meq TABLET PO SCH ×2 (09:37→12:44)
[2019-10-02] MEDS: CELECOXIB 100 MG CAP PO SCH (09:38)
[2019-10-02] MEDS: HCTZ 25 MG TAB PO SCH (09:38)
[2019-10-02] MEDS: POTASSIUM CHL 10 Meq TABLET PO SCH (09:39)
[2019-10-02] MEDS ORDERED: PANTOPRAZOLE 40 MG TAB PO SCH (10:00)
[2019-10-02] MEDS ORDERED: OMNIPAQUE ORAL SOLN 500ml 12mg/ml PO ONE (10:18)
[2019-10-02 10:35] LABS: Amylase 41 U/L (25-115); Lipase 99 U/L (73-393)
[2019-10-02] MEDS: Ensure HIGH Protein Chocolate 8oz Bottle PO SCH ×3 (12:44→21:35)
[2019-10-02] MEDS: HYOSCYAMINE SULF 0.125 MG ODT TAB PO SCH ×3 (12:45→21:34)
[2019-10-02 13:00] VITALS: BP 117/66
[2019-10-02 13:46] LABS: BUN/Creatinine Ratio 11.3; Calcium 8.1 mg/dL (8.5-10.1); Potassium 3.3 mmol/L (3.5-5.1)
[2019-10-02 14:41] LABS: Urine Bacteria FEW /hpf (None Seen); Urine Blood Negative /uL (Negative); Urine Hyaline Cast FEW /lpf (0 - 2); Urine Mucus FEW (None Seen); Urine Specific Gravity 1.013 (1.001-1.035); Urine WBC 66 /hpf (0 - 5)
[2019-10-02 16:39] VITALS: BP 100/50
--- NOTE | 2019-10-02 19:45 | NUR ---
Opening Shift Note Assumed care of patient, awake and alert. No S/S of distress/SOB noted. Instructed on POC and to call for assist PRN, will continue to monitor for changes Q1hr and PRN.
[2019-10-02 21:57] VITALS: BP 107/59
[2019-10-02] MEDS ORDERED: predniSONE 20 MG TAB PO ONE (22:00)
[2019-10-03] MEDS: diphenhdrAMINE HCL 50 MG/1 ML VL IV PRN ×4 (02:35→22:16)
[2019-10-03] MEDS: HYDROcodone-ACET 10/325MG TAB PO PRN ×5 (02:36→23:21)
[2019-10-03 03:00] VITALS: BP 120/63
--- NOTE | 2019-10-03 03:24 | NUR ---
CALLED LAB REGARDING STOOL BLOOD: CALLED LAB REGARDING STOOL BLOOD OCCULT ASKING IF LAB WAS BEING PROCESSED WITH STOOL SAMPLE. LAB STATED THAT SAMPLE IS BEING PROCESSED.
[2019-10-03] MEDS ORDERED: predniSONE 20 MG TAB PO ONE ×2 (04:00→12:00)
[2019-10-03 05:28] VITALS: BP 109/67
[2019-10-03] MEDS: Ensure HIGH Protein Chocolate 8oz Bottle PO SCH ×4 (06:00→22:07)
[2019-10-03] MEDS: D5W/SOD CHL 0.45%/KCL 20MEQ 1,000 ML IV SCH ×2 (06:26→18:38)
[2019-10-03] MEDS: PANTOPRAZOLE 40 MG TAB PO SCH (06:27)
[2019-10-03] MEDS: METOCLOPRAMIDE HCL 10 MG TAB PO SCH ×3 (06:27→22:07)
[2019-10-03] MEDS: HYOSCYAMINE SULF 0.125 MG ODT TAB PO SCH ×4 (06:28→22:07)
[2019-10-03 06:33] LABS: Albumin 2.3 g/dL (3.4-5.0); Calcium 8.3 mg/dL (8.5-10.1); Potassium 3.9 mmol/L (3.5-5.1)
[2019-10-03 06:37] LABS: BUN/Creatinine Ratio 12.7; Bilirubin, Total 0.4 mg/dL (0.2-1.0); Total Protein 6.2 g/dL (6.4-8.2)
--- NOTE | 2019-10-03 07:30 | NUR ---
Opening Shift Note Assuming care of patient at this time. Patient is awake and alert. Patient denies pain. Bed is locked and lowered with side rails up x2. Instructed patient on the plan of care for today. Instructed patient on the plan of care for today and to call for assistance as needed. Call light within reach. Will continue to round hourly and as needed. Guard at bedside.
[2019-10-03 09:00] VITALS: BP 102/61
[2019-10-03] MEDS: POTASSIUM CHL 10 Meq TABLET PO SCH (09:29)
[2019-10-03] MEDS: CELECOXIB 100 MG CAP PO SCH (09:29)
[2019-10-03] MEDS: HCTZ 25 MG TAB PO SCH (09:30)
[2019-10-03] MEDS ORDERED: OMNIPAQUE ORAL SOLN 500ml 12mg/ml PO ONE (10:37)
[2019-10-03] MEDS ORDERED: diphenhdrAMINE HCL 25 MG CAP PO ONE (12:00)
--- NOTE | 2019-10-03 12:15 | NUR ---
Pain Medication Patient is requesting pain medication for pain /. Medication ordered for pain is [place] for moderate pain scale. Will administer at this time and verify with MD for additional orders regarding pain scale.
--- NOTE | 2019-10-03 12:16 | NUR ---
Pain Management Patient is complaining of pain 05/07. Notified Dr. Umana that patient is requesting another medication. Dr. Umana aware. No new orders given at this time.
[2019-10-03] MEDS ORDERED: IOHEXOL 300 MG/ML 100ML BOTTLE IJ ONE (12:48)
[2019-10-03 13:00] VITALS: BP 115/57
--- NOTE | 2019-10-03 13:05 | NUR ---
CT W/CONTRAST PATIENT ESCORTED TO RADIOLOGY WITH RN AND GUARD VIA WHEELCHAIR. KNOWN ALLERGY TO IV CONTRAST, PREMEDICATED WITH PREDNISONE 50MG X3 AND BENADRYL 50MG PO. VITALS FOLLOWS: 1305 [id number] 97.6 HR 91 BP 105/56 O2 98% 1307 CONTRAST INJECTED TO MIDLINE ON RIGHT UPPER ARM 1309 [id number] 83 BP 105/49 O2 98% 1320 RETURN TO ROOM TEMP 97.8 HR 89 BP 119/60 O2 98% PATIENT INSTRUCTED TO NOTIFY STAFF OF SYMPTOMS OF ALLERGIC REACTION. PATIENT ASYMPTOMATIC POST PROCEDURE, TOLERATED IT WELL, RETURNED TO ROOM, BED IN LOW AND LOCKED POSITION, RAILS UP X2, GUARD AT BEDSIDE. NOTIFIED BEDSIDE NURSE OF COMPLETION OF PROCEDURE.
[2019-10-03] MEDS: levoFLOXacin 500MG 100 ML IV SCH (13:23)
--- NOTE | 2019-10-03 15:55 | NUR ---
Nutrition Assessment Notes Please refer to link for full assessment notes. Est energy needs: 8991-5391 kcals (23-25 kcal/kgBW) d/t age Est protein needs: 67-74 gms/day (1.0-1.1 gm/kgBW) d/t age Will continue to monitor and reassess prn. Addendum: 10/03/19 at [address] Amended: Links added.
[2019-10-03 17:00] VITALS: BP 90/47
--- NOTE | 2019-10-03 19:00 | NUR ---
Received report from Ellen Feliz. Initial assessment done. Pt. in bed resting, an Inmate, alert, awake, oriented x 4, in Room air, breathing symmetrical and unlabored, denies pain @ this time, on Tele # 12 Sinus Rhythm @ the monitor, pt. ambulatory, independent with the activities of daily living, steady with gait, voided with BRP, officers @ the bedside. Pt. with IVF of D5 1/2 NS + 20 meq. KCL @ 100 mls./hr. continuous connected to the RUI Midline with 1 lumen. Stomach firm and distended to touch, last BM yesterday 10/02/19. No s/s of N/V @ this time. Pt. on regular diet and able to swallow with good reflex. Pt. provided safety and officers @ the bedside.
--- NOTE | 2019-10-03 19:38 | NUR ---
Closing Shift Note Patient resting in bed. No distress noted. Patient has been medicated for itching and pain. Both itching and pain have improved after medication. Report given to casino shift manager RN. Will endorse care to the casino shift manager RN.
[2019-10-03 20:58] VITALS: BP 103/53
--- NOTE | 2019-10-03 22:07 | NUR ---
Meds. as scheduled given/administered @ this time. Pt. given health teaching on the use of these meds. Pt. verbalized understanding.
--- NOTE | 2019-10-03 22:16 | NUR ---
Pt. given Benadryl IV prn for itching @ this time - see Emar.
--- NOTE | 2019-10-03 23:21 | NUR ---
Pt. given [place] 10/325 mg. 1 tab. po for moderate aching pain @ the head and chest muscle about 6/10 scale. Pt. feels relieved with the help given. Pt. ready to sleep with officer @ the bedside.
--- NOTE | 2019-10-04 00:15 | NUR ---
Pt. quiet and resting. Denies pain and assisted with ADL"S @ the bedside. Pt. returned to sleep with 1:1 Sitter @ the bedside. SR- ST @ the low 100's per minute. Addendum: 10/04/19 at 0048 by MARTY OAKES RN RN Wrong Chart. Amend this chart.
--- NOTE | 2019-10-04 00:21 | NUR ---
Pt. quiet, resting and sleeping. SR @ the monitor @ 70's minute. No s/s of pain or discomfort. Officer @ the bedside.
--- NOTE | 2019-10-04 02:00 | NUR ---
No s/s of acute change. Pt. sleeping, IVF of D5 1/2 NS + 20 meq. KCL running @ 100 mls./hr. connected to the RUI 1 lumen Midline. Keep patent and intact. SR @ the monitor.
[2019-10-04] MEDS: D5W/SOD CHL 0.45%/KCL 20MEQ 1,000 ML IV SCH ×3 (03:22→23:08)
[2019-10-04 04:00] VITALS: BP 110/65
--- NOTE | 2019-10-04 04:00 | NUR ---
Pt. SR @ the monitor @ the 80's per minute. Pt. denies
--- NOTE | 2019-10-04 04:00 | NUR ---
Pt. denies chest pain or denies pain @ this time.
[2019-10-04] MEDS: HYDROcodone-ACET 10/325MG TAB PO PRN (04:36)
--- NOTE | 2019-10-04 04:36 | NUR ---
Pt. given [place] 1 tab. 10/325 mg. po. for severe pain @ the head and lower chest diaphragm muscle pain, aching and hurting 8/10 scale. Provided pt. psychological support. Encouraged the pt. to rest/sleep. SR @ the monitor with HR = 87/minute and BP = 110/65, 02 sat. @ 100 % in Room Air.
[2019-10-04] MEDS: ONDANSETRON HCL 4 MG/2 ML VIAL IV PRN ×4 (04:37→23:01)
--- NOTE | 2019-10-04 04:37 | NUR ---
Pt. verbalized feeling nauseated and vomited 30 minutes earlier. Pt. given Zofran- Ondansetron 4mg. = 2 ml IV @ 0437 AM. Pt. aware of the use/benefits of the prn med. IV given. Pt. verbalized understanding.
[2019-10-04] MEDS: diphenhdrAMINE HCL 50 MG/1 ML VL IV PRN ×4 (05:45→21:31)
--- NOTE | 2019-10-04 05:45 | NUR ---
Pt given Benadryl 1.25 mg. IV prn for itchiness @ 0545 Am. Pt. relieved after Benadryl IV given.
[2019-10-04] MEDS: HYOSCYAMINE SULF 0.125 MG ODT TAB PO SCH ×4 (05:46→21:25)
[2019-10-04] MEDS: Ensure HIGH Protein Chocolate 8oz Bottle PO SCH ×4 (05:46→21:25)
[2019-10-04] MEDS: METOCLOPRAMIDE HCL 10 MG TAB PO SCH ×3 (05:46→21:26)
--- NOTE | 2019-10-04 05:46 | NUR ---
Meds. as scheduled for 0600 Am given @ this time. Pt. verbalized understanding of the scheduled meds. given after provided pt. health teachings about the use and mechanism of actions of the scheduled meds.
[2019-10-04] MEDS: PANTOPRAZOLE 40 MG TAB PO SCH (06:06)
--- NOTE | 2019-10-04 06:06 | NUR ---
Protonix 40 mg. po. given.
[2019-10-04 06:54] LABS: Potassium 4.4 mmol/L (3.5-5.1)
[2019-10-04 07:00] LABS: Albumin 2.3 g/dL (3.4-5.0); BUN/Creatinine Ratio 26.4; Calcium 8.6 mg/dL (8.5-10.1)
[2019-10-04 07:03] LABS: Bilirubin, Total 0.2 mg/dL (0.2-1.0); Total Protein 5.9 g/dL (6.4-8.2)
--- NOTE | 2019-10-04 07:30 | NUR ---
Opening Shift Note Assumed care of patient. Patient is awake and alert x4. No S/S of distress/SOB. Instructed on POC and to call for assist. Will continue to monitor. Bed locked in the lowest position. Bed rails up x2. Call light in reach. prison guard at the bedside.
[2019-10-04 09:00] VITALS: BP 90/41
[2019-10-04] MEDS: POTASSIUM CHL 10 Meq TABLET PO SCH (10:00)
[2019-10-04] MEDS: HCTZ 25 MG TAB PO SCH (10:00)
[2019-10-04] MEDS: CELECOXIB 100 MG CAP PO SCH (10:15)
[2019-10-04] MEDS: levoFLOXacin 500MG 100 ML IV SCH (10:17)
[2019-10-04] MEDS ORDERED: traMADol HCL 50 MG TAB PO PRN (11:30)
--- NOTE | 2019-10-04 11:30 | NUR ---
PAIN MEDICATION PATIENT REQUESTING TRAMADOL. PATIENT C/O ALLERGY TO [place] AND STATES, "I THINK THAT IS WHY I AM ITCHY." NOTIFIED DR. BARTON. NEW ORDERS RECEIVED. ORDERS READ BACK AND VERIFIED.
[2019-10-04 13:00] VITALS: BP 114/41
--- NOTE | 2019-10-04 14:15 | NUR ---
AWARE DR. BARTON AWARE THAT PAIN MEDICATION ORDERED IS NOT WORKING FOR PAIN. NEW ORDER RECEIVED. ORDER READ BACK AND VERIFIED.
[2019-10-04] MEDS: traMADol HCL 50 MG TAB PO PRN ×2 (15:47→21:27)
[2019-10-04 17:00] VITALS: BP 126/74
--- NOTE | 2019-10-04 19:00 | NUR ---
Received report from Day Shift RN. Howard. Initial assessment done. Pt. in bed resting with Officer @ the bedside, alert, awake, oriented x 4. Pt. in Room Air, no s/s of sob/dyspnea. Pt. lung sounds are clear. Chest expansion equal and breathing unlabored. Presence of abdominal and lower chest diaphragm pain about 2/10 scale @ this time. Pt. with mild facial grimacing. Pt. ambulatory with steady gait. Independnet with the activities of daily living. General Skin intact. No s/s of pressure ulcer or decubs. Pt. adlib in bed. Pt. on Tele # 12 Sr @ the 80's Per min. Pt. with continuous IVF of D5/1/2 NS + 20 meq. KCL @ 100 mls./hr. K level today is 4.4 and MD aware and MD ordered for the IVF to continue since the Potassium K Level is within normal range. Keep pt. safe and provided assistance with needs @ the bedside.
[2019-10-04 20:00] VITALS: BP 123/67
--- NOTE | 2019-10-04 21:25 | NUR ---
Meds. as scheduled given. Pt. provided explanation of the use and mechanism of actions of these meds. given. Pt. verbalized understanding.
--- NOTE | 2019-10-04 21:27 | NUR ---
Pt. verbalized severe pain @ the abdomen and lower chest diaphragm due to enlarging distended abdomen about 9/10 scale. Pt. given Ultram-Tramadol 50 mg. po. prn for severe pain.
--- NOTE | 2019-10-04 21:31 | NUR ---
Benadryl IV given for s/s of itchiness @ the arms, lower back, adbomen, chest, legs and feet. See Emar.
--- NOTE | 2019-10-04 22:27 | NUR ---
Pt. denies pain @ this time. No s/s of facial grimacing. Pt. ambulates to the BR independently, and able to perform her own hygiene and toileting needs. Officer @ the bedside.
--- NOTE | 2019-10-04 23:01 | NUR ---
Zofran 4 mg. IV given for still feeling nauseated and vomited x 1 about 5-10 minutes ago. Pt. feels relieved after.
--- NOTE | 2019-10-04 23:31 | NUR ---
Pt. feels G/I s/s of N/V diminished and feels comfortable @ this time. No s/s of N/V after 30 mins. med. given.
--- NOTE | 2019-10-05 02:00 | NUR ---
Pt. sleeping and quiet, Officer @ the bedside. SR @ the 70's to 80's Per minute @ the monitor. No GI distress and no complain of pain @ this time.
[2019-10-05 04:00] VITALS: BP 115/68
--- NOTE | 2019-10-05 04:00 | NUR ---
Pt. Still sleeping undisturbed @ this time. Officer @ the bedside. Tele # 12, SR @ the monitor @ 70's to 80's per minute. No s/s of agitation. No s/s of facial grimacing. IVF of D5 1/2 NS + 20 meq. KCl @ 100 mls. continuous. Keep environment quiet and dim-lighted.
[2019-10-05] MEDS: Ensure HIGH Protein Chocolate 8oz Bottle PO SCH ×4 (05:32→21:41)
[2019-10-05] MEDS: HYOSCYAMINE SULF 0.125 MG ODT TAB PO SCH ×4 (05:32→21:15)
[2019-10-05] MEDS: METOCLOPRAMIDE HCL 10 MG TAB PO SCH ×3 (05:32→21:16)
--- NOTE | 2019-10-05 05:32 | NUR ---
Meds. as scheduled given. Pt. aware of the use and indication of the meds. due @ AM. Pt. verbalized understanding.
[2019-10-05] MEDS: traMADol HCL 50 MG TAB PO PRN ×3 (05:33→21:16)
[2019-10-05] MEDS: PANTOPRAZOLE 40 MG TAB PO SCH (06:14)
--- NOTE | 2019-10-05 06:14 | NUR ---
Protonix 40 mg. po given @ this time.
--- NOTE | 2019-10-05 06:30 | NUR ---
Pt. calm and resting. SR @ the monitor. Officer @ the bedside.
[2019-10-05 06:48] LABS: Potassium 4.9 mmol/L (3.5-5.1)
[2019-10-05 07:09] LABS: Albumin 2.3 g/dL (3.4-5.0); BUN/Creatinine Ratio 31.2; Bilirubin, Total 0.2 mg/dL (0.2-1.0); Calcium 8.7 mg/dL (8.5-10.1); Total Protein 5.7 g/dL (6.4-8.2)
--- NOTE | 2019-10-05 07:16 | NUR ---
Opening Shift Note Assumed care of patient, resting in bed with eyes closed. No S/S of distress/SOB or pain. Officer is present at bedside and bed is set in lowest locked position with side rails up x 2 for safety and call light is within reach, will continue to monitor for changes Q1hr and PRN.
[2019-10-05 08:02] VITALS: BP 99/55
[2019-10-05 09:00] VITALS: BP 99/55
[2019-10-05] MEDS: POTASSIUM CHL 10 Meq TABLET PO SCH (10:00)
[2019-10-05] MEDS: HCTZ 25 MG TAB PO SCH (10:00)
[2019-10-05] MEDS: D5W/SOD CHL 0.45%/KCL 20MEQ 1,000 ML IV SCH (10:12)
[2019-10-05] MEDS: CELECOXIB 100 MG CAP PO SCH (10:19)
[2019-10-05] MEDS: levoFLOXacin 500MG 100 ML IV SCH (10:19)
[2019-10-05] MEDS: diphenhdrAMINE HCL 50 MG/1 ML VL IV PRN ×3 (10:20→21:37)
[2019-10-05 10:41] LABS: Hepatitis B Surface Antigen Negative (Negative)
[2019-10-05 10:46] LABS: Hepatitis A Ab IgM Negative; Hepatitis B Core IgM Negative; Hepatitis C Antibody Negative (Negative)
[2019-10-05 12:26] VITALS: BP 117/54
[2019-10-05 17:18] VITALS: BP 107/55
--- NOTE | 2019-10-05 19:15 | NUR ---
Endorsed care to NOC RN.
--- NOTE | 2019-10-05 19:30 | NUR ---
received report from day rn poc reviewed
[2019-10-05 20:00] VITALS: BP 112/57
[2019-10-05] MEDS: ONDANSETRON HCL 4 MG/2 ML VIAL IV PRN (21:36)
--- NOTE | 2019-10-05 22:40 | NUR ---
pt resting comfortable, private security guard at bedside, pain relieved with med given
--- NOTE | 2019-10-06 00:53 | NUR ---
resting with eyes closed resp even and unlabored, no c/o discomfort
--- NOTE | 2019-10-06 03:07 | NUR ---
pt awoke c/o abd pain 01/05 medicated as ordered
[2019-10-06] MEDS: traMADol HCL 50 MG TAB PO PRN ×4 (03:10→21:14)
[2019-10-06] MEDS: ONDANSETRON HCL 4 MG/2 ML VIAL IV PRN ×2 (03:23→07:57)
[2019-10-06] MEDS: diphenhdrAMINE HCL 50 MG/1 ML VL IV PRN ×4 (03:26→21:14)
[2019-10-06 04:00] VITALS: BP 122/67
--- NOTE | 2019-10-06 04:15 | NUR ---
pain relieved with meds given
[2019-10-06] MEDS: Ensure HIGH Protein Chocolate 8oz Bottle PO SCH ×4 (05:45→21:15)
[2019-10-06] MEDS: HYOSCYAMINE SULF 0.125 MG ODT TAB PO SCH ×4 (05:45→21:15)
[2019-10-06] MEDS: PANTOPRAZOLE 40 MG TAB PO SCH (05:46)
[2019-10-06] MEDS: METOCLOPRAMIDE HCL 10 MG TAB PO SCH ×3 (05:46→21:15)
--- NOTE | 2019-10-06 06:52 | NUR ---
report given to am nurse poc reviewed
[2019-10-06 06:59] LABS: Basophils # (auto) 0 10 ^3/uL (0-0.2); Eosinophils # (auto) 0.2 10 ^3/uL (0-0.8); Eosinophils % (auto) 1.8 % (0.0-7.0); Hemoglobin 7.2 g/dL (12.2-16.2); Lymphocytes # (auto) 2.7 10 ^3/uL (0.4-5.4); Monocytes # (auto) 0.8 10 ^3/uL (0-1.3); Neutrophils # (auto) 5.3 10 ^3/uL (1.6-8.6); Nucleated Red Blood Cells % 0.1 %
[2019-10-06 07:01] LABS: Basophils % (auto) 0.3 % (0.0-2.0); Hematocrit 22.2 % (36.0-46.0); Lymphocytes % (auto) 30.2 % (10.0-50.0); Mean Corpuscular Hemoglobin 24.4 pg (28.0-32.0); Mean Corpuscular Hgb Conc. 32.3 g/dL (32.0-36.0); Mean Corpuscular Volume 75.6 fL (80.0-100.0); Monocytes % (auto) 8.9 % (0.0-12.0); Neutrophils % (auto) 58.8 % (37.0-80.0); Platelet Count (auto) 482 10^3/uL (140-450); Red Blood Cells 2.94 10^6/uL (4.0-5.20); White Blood Cell 9.1 10^3/uL (4.4-10.8)
[2019-10-06 07:04] LABS: Hepatitis A Ab IgM Negative; Hepatitis B Core IgM Negative
[2019-10-06 07:05] LABS: Hepatitis B Surface Antigen Negative (Negative); Hepatitis C Antibody Negative (Negative)
[2019-10-06 07:06] LABS: Red Cell Distribution Width 24.6 % (11.8-14.3)
[2019-10-06 07:09] LABS: Calcium 8.8 mg/dL (8.5-10.1); Potassium 4.2 mmol/L (3.5-5.1)
[2019-10-06 07:11] LABS: BUN/Creatinine Ratio 37.3
[2019-10-06 08:00] VITALS: BP 105/59
[2019-10-06 09:00] VITALS: BP 105/59
--- NOTE | 2019-10-06 09:10 | NUR ---
Spoke to MD Dr. Dave MD aware of patient's hbg level of 7.2 and hct level of 22.2. No new orders received at this time.
--- NOTE | 2019-10-06 09:20 | NUR ---
at bedside Dr. Acosta, for GI consult. Updated pt on plan for colonoscopy, patient verbalized understanding.
[2019-10-06] MEDS: HCTZ 25 MG TAB PO SCH (10:00)
[2019-10-06] MEDS: POTASSIUM CHL 10 Meq TABLET PO SCH (10:28)
[2019-10-06] MEDS: CELECOXIB 100 MG CAP PO SCH (10:28)
[2019-10-06] MEDS: levoFLOXacin 500MG 100 ML IV SCH (10:28)
--- NOTE | 2019-10-06 10:30 | NUR ---
Obtained consent for procedure Placed consents in patient's chart.
[2019-10-06 13:00] VITALS: BP 100/52
[2019-10-06] MEDS ORDERED: GOLYTELY 4L KIT PO ONE (16:00)
[2019-10-06 16:37] VITALS: BP 129/64
--- NOTE | 2019-10-06 19:19 | NUR ---
Endorsed care to NOC RN.
--- NOTE | 2019-10-06 19:32 | NUR ---
received report from day rn poc reviewed
--- NOTE | 2019-10-06 21:16 | NUR ---
c/o abd pain 02/04 medicated as ordered
--- NOTE | 2019-10-06 21:19 | NUR ---
discussed am procedure with pt, pt has been educated on drinking golyte, all questions and concerns addressed
[2019-10-06 22:00] VITALS: BP 106/59
--- NOTE | 2019-10-06 22:01 | NUR ---
pt resting comfortable with hob up resp even and unlabored, call light within reach, guard at bedside
[2019-10-07] VITALS (13 sets, daily range): BP systolic 106–139; BP diastolic 50–73
[2019-10-07] MEDS: Ensure HIGH Protein Chocolate 8oz Bottle PO SCH ×4 (00:55→21:36)
[2019-10-07] MEDS: traMADol HCL 50 MG TAB PO PRN ×3 (02:15→21:36)
[2019-10-07] MEDS: diphenhdrAMINE HCL 50 MG/1 ML VL IV PRN ×4 (02:15→22:35)
--- NOTE | 2019-10-07 02:15 | NUR ---
awoke c/o abd pain 02/04 medicated as ordered
--- NOTE | 2019-10-07 03:15 | NUR ---
pt resting comfortable pain relieved with med given
[2019-10-07] MEDS: HYOSCYAMINE SULF 0.125 MG ODT TAB PO SCH ×4 (06:00→21:35)
[2019-10-07] MEDS: METOCLOPRAMIDE HCL 10 MG TAB PO SCH ×3 (06:00→21:36)
--- NOTE | 2019-10-07 06:13 | NUR ---
awoke pt completed all of golytle, wattery stools not quite clear yet
[2019-10-07] MEDS: PANTOPRAZOLE 40 MG TAB PO SCH (06:36)
--- NOTE | 2019-10-07 06:51 | NUR ---
report given to am nurse poc reviewed
--- NOTE | 2019-10-07 07:30 | NUR ---
Paged doctor Erasmo regarding patient schedule procedure for today and no chest xray or new labs. Awaiting call back.
--- NOTE | 2019-10-07 07:35 | NUR ---
Received call back from Doctor Zimmerman. Per Doctor Zimmerman no need for chest xray for procedure. Orders received for CBC and BMP labs today.
[2019-10-07] MEDS ORDERED: SODIUM CHLORIDE LOCK 10 ML ONE (08:06)
[2019-10-07] MEDS ORDERED: diphenhdrAMINE HCL 50 MG/1 ML VL ONE (08:07)
[2019-10-07] MEDS ORDERED: NALOXONE HCL 0.4 MG/ML VIAL ONE (08:11)
[2019-10-07] MEDS ORDERED: FLUMAZENIL 0.1 MG/ML INJ 10ML MDV IV ONE (08:11)
--- NOTE | 2019-10-07 08:30 | NUR ---
Patient taken down to OR for procedure. Patient awake and alert. No S/S of distress. IV patented and flushed.
[2019-10-07 08:32] LABS: Basophils # (auto) 0 10 ^3/uL (0-0.2)
[2019-10-07 08:34] LABS: Basophils % (auto) 0.5 % (0.0-2.0); Eosinophils # (auto) 0.2 10 ^3/uL (0-0.8); Eosinophils % (auto) 2.1 % (0.0-7.0); Hematocrit 20.5 % (36.0-46.0); Lymphocytes % (auto) 24.5 % (10.0-50.0); Mean Corpuscular Hemoglobin 24.5 pg (28.0-32.0); Mean Corpuscular Hgb Conc. 32.5 g/dL (32.0-36.0); Mean Corpuscular Volume 75.5 fL (80.0-100.0); Monocytes # (auto) 0.7 10 ^3/uL (0-1.3); Monocytes % (auto) 8.3 % (0.0-12.0); Neutrophils # (auto) 5.3 10 ^3/uL (1.6-8.6); Neutrophils % (auto) 64.6 % (37.0-80.0); Platelet Count (auto) 501 10^3/uL (140-450); Red Blood Cells 2.72 10^6/uL (4.0-5.20); White Blood Cell 8.3 10^3/uL (4.4-10.8)
[2019-10-07 08:36] LABS: Red Cell Distribution Width 25.7 % (11.8-14.3)
[2019-10-07 08:38] LABS: Hemoglobin 6.7 g/dL (12.2-16.2)
--- NOTE | 2019-10-07 08:39 | NUR ---
Critical Lab Received call from lab reporting critical HGB of 6.7. Paged doctor Erasmo regarding critical lab value.
[2019-10-07 08:49] LABS: BUN/Creatinine Ratio 29.6; Calcium 8.2 mg/dL (8.5-10.1); Potassium 3.7 mmol/L (3.5-5.1)
[2019-10-07 08:52] LABS: INR 1.03 (0.9-1.15); Partial Thromboplastin Time 23.8 sec (23.64-32.05)
--- NOTE | 2019-10-07 09:23 | NUR ---
Spoke with doctor Erasmo wood md of critical HGB lab of 6.7 ,new orders received see emr for orders.
[2019-10-07] MEDS: MIDAZOLAM HCL 5 MG/ML-1ML VIAL ONE ×4 (09:25→09:48)
[2019-10-07] MEDS: fentaNYL CITRATE 100 MCG/2 ML VL ONE ×3 (09:25→09:48)
--- NOTE | 2019-10-07 09:28 | NUR ---
Called down to OR spoke with Liz AKBAR, inform her that doctor Zimmerman ordered 2 units of PRBC to be administered.
--- NOTE | 2019-10-07 09:37 | NUR ---
Patient down at OR. Addendum: 10/07/19 at 0938 by KEVIN ALMEIDA RN RN Amended: Aleida added. Addendum: 10/07/19 at 0938 by KEVIN ALMEIDA RN RN Amended: Aleida added.
[2019-10-07] MEDS ORDERED: METHYLENE BLUE 0.5% 5MG/ML 10ml AMP IV ONE (09:58)
--- NOTE | 2019-10-07 10:43 | NUR ---
PATIENT BACK FROM OR REPORT RECEIVED FROM RUSTY AKBAR. V/S 111/72, 86 HR ,97.9 TEMP, 14 RESPIRATION, 100% O2 SAT ON 2LNC.
--- NOTE | 2019-10-07 10:45 | NUR ---
Per recreational therapist Dara consents for blood was not done in OR, per Dara RN patient received last dose of fentanyl and versed at 0948 will do blood transfusion consent at 12:48 per hospital policy.
--- NOTE | 2019-10-07 11:56 | NUR ---
Doctor Erasmo inform about waiting for blood consents until 0634. No new orders received.
[2019-10-07] MEDS: levoFLOXacin 500MG 100 ML IV SCH (12:16)
[2019-10-07] MEDS: POTASSIUM CHL 10 Meq TABLET PO SCH (12:17)
[2019-10-07] MEDS: ONDANSETRON HCL 4 MG/2 ML VIAL IV PRN ×2 (12:17→21:35)
--- NOTE | 2019-10-07 15:30 | NUR ---
Patient stated she is itchy and is always itchy " I have been itchy for days" patient stated that the itching has not gotten worse with the blood transfusion and it is the same as before. patient request a regular diet. Will Inform MD. Will continue to monitor.
--- NOTE | 2019-10-07 15:34 | NUR ---
Spoke with Doctor Erasmo wood MD that patient request a regular diet and patient stated she has chronic itchiness New orders received for diet see emr for orders.
--- NOTE | 2019-10-07 16:56 | NUR ---
Blood transfusion ended at 1653 no reaction noted vital signs stable see transfusion for times and vitals.
--- NOTE | 2019-10-07 18:41 | NUR ---
PATIENT CURRENT TRANSFUSING SECOND UNIT OF BLOOD PRODUCT. NO S/S OF REACTION AT THIS TIME, V/S STABLE, NO S/S OF DISTRESS NOTED. WILL CONTINUE TO MONITOR.
--- NOTE | 2019-10-07 19:08 | NUR ---
CLOSING NOTE PATIENT STILL TRANSFUSING SECOND UNIT OF BLOOD PRODUCT. NO S/S OF REACTION AT THIS TIME, V/S STABLE, NO S/S OF DISTRESS NOTED. NOC RAFFY RIOS INFORM OF START TIME AND TRANSFUSING RATE, CARE ENDORSED TO RAFFY RIOS.
--- NOTE | 2019-10-07 19:22 | NUR ---
Opening Shift Note Assumed care of patient, awake and alert x4. Second PRBC is being infused to the RUI midline at 125 mls/hr. LFA IV is patent, flushes easily, and is asymptomatic. Call light is within reach, side rails up x2, bed is in the lowest position, guard is at bedside for safety. No S/S of distress/SOB or pain. Instructed on POC and to call for assist PRN. All questions and concerns answered, will continue to monitor for changes Q1hr and PRN.
--- NOTE | 2019-10-07 20:34 | NUR ---
End of second unit PRBC. VSS: BP- 136.68, RR- 18, HR- 86, T-98.2 auxillary, O2 sat- 98% on RA. Lungs sound clear, no reaction noted. NS is now infusing. Call light is within reach. Will continue to monitor.
--- NOTE | 2019-10-07 20:40 | NUR ---
Dr. Pratt is at bedside discussing a surgical procedure scheduled for Saturday around noon. New orders received to give one gallon of bowel prep and change diet order to clear liquids. Addendum: 10/07/19 at 2058 by PEGGY TORRES RN Dr. Hilario Kern*
[2019-10-07] MEDS ORDERED: GOLYTELY 4L KIT PO ONE (21:00)
--- NOTE | 2019-10-07 21:34 | NUR ---
One hour post transfusion vitals BP-139/73, HR- 83, RR- 18, T- 98.7 degrees, O2 sat 98% on RA.
--- NOTE | 2019-10-07 22:36 | NUR ---
Pain reassessment Patient was given tramadol 50 mg at 21:36 for a pain level 8/0-10 to the abdomen that was sharp and radiated to her back. At 22:36, her pain level was 4/0-10, she stated it was tolerable for her, the pain acted up after the doctor pushed on her stomach to assess it.
--- NOTE | 2019-10-07 22:48 | NUR ---
IV removal from LFA due to infiltration IV DC'd with clean sterile technique, catheter fully intact. Pressure dressing applied to site. Patient tolerated well.
[2019-10-08] MEDS: traMADol HCL 50 MG TAB PO PRN ×2 (02:11→08:17)
--- NOTE | 2019-10-08 02:11 | NUR ---
PAIN PATIENT C/O PAIN TO BACK AND ARM PATIENT REQUESTS TRAMADOL. PATIENT RATES PAIN AT 10/10. TRAMADOL ADMINISTERED WHILE PRIMARY RN ON BREAK. SEE EMAR FOR DETAILS
[2019-10-08] MEDS: diphenhdrAMINE HCL 50 MG/1 ML VL IV PRN ×3 (03:02→19:54)
--- NOTE | 2019-10-08 03:02 | NUR ---
Pain reassessment Patient states the tramadol eases off the pain and she feels a little better, but the pain never really goes away. Complaints of pain 10/0-10 to the abdomen. Will continue to monitor.
[2019-10-08 05:49] VITALS: BP 113/54
[2019-10-08] MEDS: Ensure HIGH Protein Chocolate 8oz Bottle PO SCH ×4 (06:00→21:54)
[2019-10-08] MEDS: METOCLOPRAMIDE HCL 10 MG TAB PO SCH ×3 (06:02→21:54)
[2019-10-08] MEDS: PANTOPRAZOLE 40 MG TAB PO SCH (06:02)
[2019-10-08] MEDS: HYOSCYAMINE SULF 0.125 MG ODT TAB PO SCH ×4 (06:02→21:54)
[2019-10-08 06:26] LABS: Basophils # (auto) 0 10 ^3/uL (0-0.2); Eosinophils # (auto) 0.2 10 ^3/uL (0-0.8); Eosinophils % (auto) 1.7 % (0.0-7.0); Hematocrit 27.1 % (36.0-46.0); Lymphocytes # (auto) 1.3 10 ^3/uL (0.4-5.4)
[2019-10-08 06:35] LABS: Basophils % (auto) 0.3 % (0.0-2.0); Hemoglobin 9.1 g/dL (12.2-16.2); Lymphocytes % (auto) 12.2 % (10.0-50.0); Mean Corpuscular Hemoglobin 26.5 pg (28.0-32.0); Mean Corpuscular Hgb Conc. 33.6 g/dL (32.0-36.0); Monocytes # (auto) 0.8 10 ^3/uL (0-1.3); Monocytes % (auto) 7.6 % (0.0-12.0); Neutrophils # (auto) 8.5 10 ^3/uL (1.6-8.6); Neutrophils % (auto) 78.2 % (37.0-80.0); Platelet Count (auto) 466 10^3/uL (140-450); Red Blood Cells 3.43 10^6/uL (4.0-5.20); White Blood Cell 10.9 10^3/uL (4.4-10.8)
[2019-10-08 06:43] LABS: BUN/Creatinine Ratio 18.7; Calcium 8.6 mg/dL (8.5-10.1); Potassium 3.7 mmol/L (3.5-5.1)
[2019-10-08 06:51] LABS: Red Cell Distribution Width 27.3 % (11.8-14.3)
[2019-10-08] MEDS: ONDANSETRON HCL 4 MG/2 ML VIAL IV PRN ×3 (08:17→19:54)
[2019-10-08 09:00] VITALS: BP 121/58
[2019-10-08] MEDS: levoFLOXacin 500MG 100 ML IV SCH (10:34)
[2019-10-08] MEDS: POTASSIUM CHL 10 Meq TABLET PO SCH (10:34)
[2019-10-08 13:00] VITALS: BP 106/50
[2019-10-08] MEDS: MORPHINE SULF INJ 2 MG/ML SYRINGE 1ML IV PRN ×2 (15:02→23:07)
--- NOTE | 2019-10-08 15:03 | NUR ---
Nutrition Followup Notes Pt wt is 92.7 kg today Pt is currently on a CLD d/t scheduled medical procedure. Prior to the CLD diet, pt was on an oral diet and her appetite was good aeb ave 85% PO intake per RN doc. Pt in no noted distress per RN doc. Will continue to monitor and followup prn. Est energy needs: 9750-0728 kcals (23-25 kcal/kgBW) d/t age Est protein needs: 67-74 gms/day (1.0-1.1 gm/kgBW) d/t age Will continue to monitor and reassess prn. LABS: Alb 2.3 L GI: Last noted BM on 10/08/19 per RN doc BS: 20 low risk, Please refer to wound assessment report for full details. PES: Problem 1) Altered GI function r/t gastric bipass, intestinal resection aeb chronic diarrhea 2) Altered nutrition related lab values r/t current/chronic medical condition aeb hyperchlor, hyper glyc, severe hypoalb Comments 1) Continue to closely monitor pt PO intake to meet a goal of at least 75% of meals eaten 2) Consider Powerade, 1 container daily 3) If pt appetite is <75% intake consider additional nutrition support 4) Continue current plan of care
[2019-10-08 17:00] VITALS: BP 120/56
--- NOTE | 2019-10-08 19:08 | NUR ---
Patient care endorsed endorsed care to Bryanna luu. Patient laying in bed no acute distress or sob noted. Call light within reach. Guards at bedside. Patient denies pain at this time and continues to drink Golytely as ordered. Patient instructed to remain NPO after midnight as ordered by Dr Mercado for procedure tomorrow by Dr Kern.
--- NOTE | 2019-10-08 19:35 | NUR ---
Opening Shift Note Assumed care of patient, awake and alert x4. No S/S of distress/SOB or complaint of pain. The midline to the RUI is patent, flushes easily, and asymptomatic in appearance. Guard is at bedside for safety. Call light is within reach, side rails up x2, bed is in the lowest position. Instructed on POC and to call for assist PRN, will continue to monitor for changes Q1hr and PRN.
--- NOTE | 2019-10-08 19:54 | NUR ---
Nausea and itching Zofran and Benadryl administered due to patient complaining of nausea and itching. Will continue to monitor.
--- NOTE | 2019-10-08 20:54 | NUR ---
Nausea and itching resolved, patient is resting in bed, guard is at bedside, will continue to monitor.
[2019-10-08 22:00] VITALS: BP 125/70
--- NOTE | 2019-10-08 23:07 | NUR ---
Pain Complaints of a dull ache to the upper abdomen, 8/0-10. Morphine administered, will continue to monitor.
[2019-10-09] VITALS (11 sets, daily range): BP systolic 105–139; BP diastolic 59–78
--- NOTE | 2019-10-09 00:07 | NUR ---
Pain reassessment Morphine resolved the pain to the abdomen, patient is resting in bed, call light is within reach, guard is at bedside. Will continue to monitor.
[2019-10-09] MEDS: diphenhdrAMINE HCL 50 MG/1 ML VL IV PRN ×2 (01:03→05:59)
--- NOTE | 2019-10-09 01:04 | NUR ---
Itching Benadryl given prn for itching. Patient states she thinks it is the laundry detergent. Will continue to monitor.
--- NOTE | 2019-10-09 01:45 | NUR ---
Itching resolved, patient is asleep in bed. Guard is at bedside, call light is within reach.
--- NOTE | 2019-10-09 02:30 | NUR ---
Midline dressing change Midline dressing change done with sterile technique. Midline flushes easily, is asymptomatic in appearance. Patient tolerated well.
[2019-10-09] MEDS: ONDANSETRON HCL 4 MG/2 ML VIAL IV PRN ×2 (05:59→19:51)
[2019-10-09] MEDS: Ensure HIGH Protein Chocolate 8oz Bottle PO SCH ×2 (06:00→12:00)
[2019-10-09] MEDS: HYOSCYAMINE SULF 0.125 MG ODT TAB PO SCH (06:00)
[2019-10-09] MEDS: METOCLOPRAMIDE HCL 10 MG TAB PO SCH (06:00)
--- NOTE | 2019-10-09 06:00 | NUR ---
Nausea and itching Zofran and Benadryl administered due to patient complaining of nausea and itching. Will continue to monitor.
[2019-10-09] MEDS: PANTOPRAZOLE 40 MG TAB PO SCH (07:00)
[2019-10-09] MEDS: MORPHINE SULF INJ 2 MG/ML SYRINGE 1ML IV PRN (09:05)
[2019-10-09] MEDS: levoFLOXacin 500MG 100 ML IV SCH (09:20)
[2019-10-09] MEDS: POTASSIUM CHL 10 Meq TABLET PO SCH (10:00)
--- NOTE | 2019-10-09 10:32 | NUR ---
Patient taken down to OR. No S/S of distress noted, v/s stable. Care endorsed to BUSINESS ADMINISTRATION PROGRAM CHAIRRAFFY Diamond. Addendum: 10/09/19 at 1157 by KEVIN ALMEIDA RN RN wrong time patient taken down at 11:32
[2019-10-09] MEDS ORDERED: BUPIVACAINE 0.25% INJ 50ML VIAL ONE (12:15)
[2019-10-09] MEDS ORDERED: LIDOCAINE 1% HCL (LOCAL ANESTH.) INJ 20ML MDV ONE (12:15)
[2019-10-09] MEDS ORDERED: MIDAZOLAM HCL 1MG/1ML-2 ML VIAL ONE (12:54)
[2019-10-09] MEDS ORDERED: cefTRIAXone 1GM/50ML D5W 0 ML IV ONE (12:54)
[2019-10-09] MEDS ORDERED: HYDROmorphone HCL 2 MG/ML VL ONE (12:54)
[2019-10-09] MEDS ORDERED: fentaNYL CITRATE 100 MCG/2 ML VL ONE (12:54)
[2019-10-09] MEDS ORDERED: fentaNYL CITRATE 5 ML ONE ×2 (12:54→14:44)
[2019-10-09] MEDS ORDERED: HEPARIN SODIUM (PORCINE) 5000 UNITS/ML 1ML VIAL ONE ×2 (12:57→12:58)
[2019-10-09] MEDS ORDERED: DexAMETHasone SOD PHOS 10MG/1ML VIAL INJ IV ONE (13:01)
[2019-10-09] MEDS ORDERED: ETOMIDATE (2MG/ML) 20ML VIAL IV ONE (13:24)
[2019-10-09] MEDS ORDERED: ROCURONIUM 10MG/ML 10ML VIAL IV ONE (13:42)
--- NOTE | 2019-10-09 15:16 | NUR ---
patient still in OR. Addendum: 10/09/19 at 1517 by KEVIN ALMEIDA RN RN Amended: Links added.
[2019-10-09] MEDS ORDERED: HYDROmorphone HCL 2 MG/ML VL IV PRN ×3 (15:30→15:45)
[2019-10-09] MEDS ORDERED: NALOXONE HCL 0.4 MG/ML VIAL IV PRN (15:30)
[2019-10-09] MEDS ORDERED: ONDANSETRON HCL 4 MG/2 ML VIAL IV PRN (15:30)
[2019-10-09] MEDS ORDERED: NEOSTIGMINE 1 MG/ML INJ (10mg/10ML VIAL) ONE (15:31)
[2019-10-09] MEDS ORDERED: GLYCOPYRROLATE 0.2 MG/ML 1ML VIAL ONE (15:31)
[2019-10-09] MEDS: SODIUM CHLORIDE 0.9% 1,000 ML IV SCH (15:45)
--- NOTE | 2019-10-09 16:50 | NUR ---
Patient back from OR report received from Martha AKBAR.Patient back with NG tube at right nare 50 cm at dilip connected to suction per md orders. Patient is resting with eyes closed. Respirations are even and unlabored No S/S of distree noted vital signs are WNL. respiraions are 15 temp 97.5F blood pressure 133/71 heart rate 86 o2 sat 98% on 2LNC.
--- NOTE | 2019-10-09 17:02 | NUR ---
patient down at OR still Addendum: 10/09/19 at 1702 by KEVIN ALMEIDA RN RN Amended: Links added. Addendum: 10/09/19 at 1720 by KEVIN ALMEIDA RN RN TIME WAS FOR 1600
[2019-10-09] MEDS: HYDROmorphone HCL 2 MG/ML VL IV PRN ×2 (19:51→21:59)
[2019-10-10] MEDS: HYDROmorphone HCL 2 MG/ML VL IV PRN ×10 (00:12→22:15)
[2019-10-10] MEDS: diphenhdrAMINE HCL 50 MG/1 ML VL IV PRN (05:08)
[2019-10-10 05:30] VITALS: BP 140/72
[2019-10-10] MEDS: SODIUM CHLORIDE 0.9% 1,000 ML IV SCH ×3 (06:13→18:44)
--- NOTE | 2019-10-10 06:21 | NUR ---
NG tube put out around 370 mls, greenish fluid. LCS per orders. Emptied 600 mls cierra colored foul smelling urine from tucker. Patient complaining of very dry mouth. Mouth swabs given often. Infusing fluids per orders. Patient states she is passing gas. Abdominal binder in place. Dressing to abdomen clean dry and intact. Repositioned with pi;;ows q2 hours. Requested pain meds q2 hours
--- NOTE | 2019-10-10 08:05 | NUR ---
Doctor Jessika at bedside.
[2019-10-10] MEDS: ONDANSETRON HCL 4 MG/2 ML VIAL IV PRN ×2 (08:25→17:36)
[2019-10-10] MEDS: PANTOPRAZOLE 40 MG/10 ML VIAL INJ IV SCH (08:25)
[2019-10-10] MEDS: ENOXAPARIN SOD 40 MG/0.4 ML SYRINGE SC SCH (08:26)
[2019-10-10 09:00] VITALS: BP 89/62
[2019-10-10 11:08] LABS: BUN/Creatinine Ratio 9.7; Calcium 8.8 mg/dL (8.5-10.1); Magnesium 1.7 mg/dL (1.6-2.6); Potassium 3.8 mmol/L (3.5-5.1)
[2019-10-10 12:25] LABS: Basophils # (auto) 0.2 10 ^3/uL (0-0.2); Basophils % (auto) 0.8 % (0.0-2.0); Eosinophils # (auto) 0 10 ^3/uL (0-0.8); Eosinophils % (auto) 0.1 % (0.0-7.0); Hematocrit 34.4 % (36.0-46.0); Hemoglobin 10.8 g/dL (12.2-16.2); Lymphocytes # (auto) 1.6 10 ^3/uL (0.4-5.4); Lymphocytes % (auto) 6.3 % (10.0-50.0); Mean Corpuscular Hgb Conc. 31.3 g/dL (32.0-36.0); Monocytes # (auto) 2.7 10 ^3/uL (0-1.3); Monocytes % (auto) 10.7 % (0.0-12.0); Neutrophils # (auto) 20.8 10 ^3/uL (1.6-8.6); Neutrophils % (auto) 82.1 % (37.0-80.0); Platelet Count (auto) 643 10^3/uL (140-450); White Blood Cell 25.3 10^3/uL (4.4-10.8)
[2019-10-10 12:26] LABS: Red Cell Distribution Width 27.9 % (11.8-14.3)
[2019-10-10 12:30] VITALS: BP 143/63
--- NOTE | 2019-10-10 13:36 | NUR ---
PATIENT REFUSE TO AMBULATE Addendum: 10/10/19 at 1337 by KEVIN ALMEIDA RN RN Amended: Links added.
[2019-10-10] MEDS: MAGNESIUM SULFATE 1GM/100ML 100 ML IV SCH ×2 (14:59→16:13)
--- NOTE | 2019-10-10 15:00 | NUR ---
fFoley catheter dc'd Order to discontinue tucker catheter. Tucker dc'd with clean technique following deflation of balloon. Patient tolerated well with no complaints of pain. Continue care.
[2019-10-10 17:20] VITALS: BP 137/70
--- NOTE | 2019-10-10 17:46 | NUR ---
Up with PT patient OOB in chair. Addendum: 10/10/19 at 1747 by KEVIN ALMEIDA RN RN Amended: Links added.
--- NOTE | 2019-10-10 18:38 | NUR ---
Evening note Patient resting in bed awake and alert. NG tube at right nare connected to suction per MD order NG out put 50 cc of green bile out this shift. Respirations are even and unlabored no S/S of distress noted. Fall precautions in place, bed in lowest position breaks locked side rails up x2, call light with in reach. Guard at bedside. No complaints of pain or nausea at this time will continue to monitor.
[2019-10-10 20:00] VITALS: BP 105/59
--- NOTE | 2019-10-10 21:50 | NUR ---
Encouraging patient to try and urinate. Was unable to urinate on bedpan with first attempt. Placed on the bed ma again along with a bucket of warm water to place her hand in. Thinks that might help. If not able to go, will bladder scan her and take further steps necessary to follow. Having pain 8/10 to left knee. Difficult for patient to move left leg at all due to pain. Continuing to monitor.
[2019-10-10 22:00] VITALS: BP 154/78
--- NOTE | 2019-10-10 22:21 | NUR ---
Patient was able to urinate around 50 mls in bedpan. Complaining of severely dry mouth. States she recently had celina in her mouth from all the antibiotics and thinks she may have a yeast infection as well. Will notify the MD for possible probiotics or other treatment. Mouth swabs given. NG tube still connected to LCS per orders.
[2019-10-11] MEDS: HYDROmorphone HCL 2 MG/ML VL IV PRN ×7 (00:13→23:13)
[2019-10-11 05:00] VITALS: BP 129/60
[2019-10-11 07:39] LABS: Eosinophils # (auto) 0.1 10 ^3/uL (0-0.8); Hemoglobin 9.3 g/dL (12.2-16.2); Nucleated Red Blood Cells % 0.1 %
--- NOTE | 2019-10-11 07:41 | NUR ---
Alvarado placed due to not urinating. 14 angolan . Patient had a very difficult time moving her legs. Bilateral Legs and knees swollen and c/o of pain 10/10 and can barely turn . Screams when turning her or moving her legs at all. Meds given for pain q2 hours per orders and patient request.
[2019-10-11 07:42] LABS: Basophils # (auto) 0.2 10 ^3/uL (0-0.2); Basophils % (auto) 0.9 % (0.0-2.0); Eosinophils % (auto) 0.4 % (0.0-7.0); Hematocrit 28.5 % (36.0-46.0); Lymphocytes # (auto) 1.3 10 ^3/uL (0.4-5.4); Lymphocytes % (auto) 5.2 % (10.0-50.0); Mean Corpuscular Hemoglobin 26.1 pg (28.0-32.0); Mean Corpuscular Hgb Conc. 32.9 g/dL (32.0-36.0); Mean Corpuscular Volume 79.5 fL (80.0-100.0); Monocytes # (auto) 3.2 10 ^3/uL (0-1.3); Monocytes % (auto) 13.2 % (0.0-12.0); Neutrophils # (auto) 19.4 10 ^3/uL (1.6-8.6); Neutrophils % (auto) 80.3 % (37.0-80.0); Platelet Count (auto) 537 10^3/uL (140-450); Red Blood Cells 3.58 10^6/uL (4.0-5.20); White Blood Cell 24.2 10^3/uL (4.4-10.8)
[2019-10-11 07:43] LABS: Red Cell Distribution Width 28.6 % (11.8-14.3)
[2019-10-11] MEDS: SODIUM CHLORIDE 0.9% 1,000 ML IV SCH ×2 (07:45→22:25)
[2019-10-11 07:50] LABS: Albumin 1.9 g/dL (3.4-5.0); Calcium 8.4 mg/dL (8.5-10.1); Potassium 3.4 mmol/L (3.5-5.1)
[2019-10-11] MEDS: ONDANSETRON HCL 4 MG/2 ML VIAL IV PRN ×2 (07:50→17:58)
[2019-10-11] MEDS: PANTOPRAZOLE 40 MG/10 ML VIAL INJ IV SCH (07:50)
[2019-10-11] MEDS: ENOXAPARIN SOD 40 MG/0.4 ML SYRINGE SC SCH (07:51)
[2019-10-11 07:55] LABS: BUN/Creatinine Ratio 17.5; Bilirubin, Total 0.6 mg/dL (0.2-1.0); Total Protein 5.9 g/dL (6.4-8.2)
--- NOTE | 2019-10-11 08:11 | NUR ---
Patient refused to ambulate. Addendum: 10/11/19 at 0811 by KEVIN ALMEIDA RN RN Amended: Links added.
[2019-10-11 09:04] VITALS: BP 129/61
--- NOTE | 2019-10-11 09:55 | NUR ---
Doctor Erlin at bedside. MD inform that patients knees are painful to touch and swollen. Md Also informed patient has pitting edema to ankles. Per MD he will put in orders.
[2019-10-11] MEDS ORDERED: KETOROLAC TROMETH 30 MG/ML 1ML VIAL IV ONE (10:00)
[2019-10-11] MEDS: POTASSIUM CHL 20MEQ/100ML 100 ML IV SCH ×4 (11:17→14:45)
--- NOTE | 2019-10-11 12:30 | NUR ---
Doctor dionna edwards. MD inform that patients knees are painful to touch and swollen. Md Also informed patient has pitting edema to ankles. Per MD he will put in orders.Will continue to monitor.
--- NOTE | 2019-10-11 12:40 | NUR ---
PATIENT REFUSED TO AMBULATE STATED TO PAINFUL TO MOVE. Addendum: 10/11/19 at 1457 by KEVIN ALMEIDA RN RN Amended: Links added.
--- NOTE | 2019-10-11 12:40 | NUR ---
PATIENT REFUSE AMBULATION STATED TO PAINFUL TO MOVE.
[2019-10-11] MEDS ORDERED: FUROSEMIDE 40 MG/4 ML VIAL IV ONE (12:45)
[2019-10-11 13:00] VITALS: BP 124/64
--- NOTE | 2019-10-11 13:00 | NUR ---
Doctor aminata inform patient has received potassium order from doctor Kern, per MD disregard duplicate order.
--- NOTE | 2019-10-11 14:54 | NUR ---
PATIENT REFUSED AMBULATION STATED TO PAIN FUL TO MOVE.
[2019-10-11] MEDS: metroNIDAZOLE 500MG/100ML 100 ML IV SCH ×2 (16:03→22:24)
[2019-10-11] MEDS ORDERED: KETOROLAC TROMETH 15 mg/ml 1ML VL IV SCH (16:30)
--- NOTE | 2019-10-11 16:40 | NUR ---
PATIENT REFUSE AMBULATION Addendum: 10/11/19 at 1641 by KEVIN ALMEIDA RN RN Amended: Links added.
[2019-10-11 17:27] VITALS: BP 128/65
--- NOTE | 2019-10-11 19:00 | NUR ---
25ml green out put from ng tube.
--- NOTE | 2019-10-11 19:01 | NUR ---
Opening Shift Note Assumed care of patient, awake and alert.Female guard on bedside. No S/S of distress/SOB or pain. Instructed on POC and to call for assist PRN, will continue to monitor for changes Q1hr and PRN.
[2019-10-11 20:15] LABS: Urine Bacteria FEW /hpf (None Seen); Urine Blood Negative /uL (Negative); Urine Mucus FEW (None Seen); Urine Specific Gravity 1.018 (1.001-1.035); Urine WBC 5 /hpf (0 - 5)
--- NOTE | 2019-10-11 20:45 | NUR ---
Pt removed voluntarily her NG Tube. She is refusing replacement. Paged doctor Erasmo.
--- NOTE | 2019-10-11 20:50 | NUR ---
Call from doctor Erasmo. Informed him about NG Tube removal and was advised to page doctor Kern.
--- NOTE | 2019-10-11 20:55 | NUR ---
Paged doctor Kern.
[2019-10-11 21:00] VITALS: BP 131/62
--- NOTE | 2019-10-11 21:10 | NUR ---
Called doctor Kern. Left message regarding NG Tube removal by the patient. Awaiting call back.
--- NOTE | 2019-10-11 22:00 | NUR ---
Made charge nurse Mehrdad aware about NG Tube removal and and about the tentative to reach doctor Erlin.
[2019-10-12] MEDS: HYDROmorphone HCL 2 MG/ML VL IV PRN ×6 (03:18→22:50)
[2019-10-12 05:00] VITALS: BP 128/56
[2019-10-12 05:58] LABS: Basophils # (auto) 0 10 ^3/uL (0-0.2); Eosinophils # (auto) 0.2 10 ^3/uL (0-0.8); Eosinophils % (auto) 1.3 % (0.0-7.0); Hemoglobin 8.7 g/dL (12.2-16.2)
[2019-10-12 06:01] LABS: Basophils % (auto) 0.1 % (0.0-2.0); Hematocrit 26.1 % (36.0-46.0); Lymphocytes # (auto) 1.1 10 ^3/uL (0.4-5.4); Lymphocytes % (auto) 6.2 % (10.0-50.0); Mean Corpuscular Hemoglobin 26.3 pg (28.0-32.0); Mean Corpuscular Hgb Conc. 33.2 g/dL (32.0-36.0); Mean Corpuscular Volume 79.1 fL (80.0-100.0); Monocytes # (auto) 2.1 10 ^3/uL (0-1.3); Monocytes % (auto) 11.7 % (0.0-12.0); Neutrophils # (auto) 14.7 10 ^3/uL (1.6-8.6); Neutrophils % (auto) 80.7 % (37.0-80.0); Platelet Count (auto) 488 10^3/uL (140-450); White Blood Cell 18.3 10^3/uL (4.4-10.8)
[2019-10-12] MEDS: metroNIDAZOLE 500MG/100ML 100 ML IV SCH ×3 (06:04→22:25)
[2019-10-12 06:19] LABS: Calcium 8.2 mg/dL (8.5-10.1); Magnesium 1.9 mg/dL (1.6-2.6)
[2019-10-12 06:25] LABS: Potassium 2.9 mmol/L (3.5-5.1)
--- NOTE | 2019-10-12 06:30 | NUR ---
Call from lab with critical lab value potassium 2.9 Paged doctor Erasmo
[2019-10-12 06:47] LABS: Red Cell Distribution Width 28.2 % (11.8-14.3)
--- NOTE | 2019-10-12 07:30 | NUR ---
Until this point no call back from doctor Erasmo. Day nurse Divya aware of low potassium.
--- NOTE | 2019-10-12 08:00 | NUR ---
MD PHONE CALL DR STYLES RETURNED PHONE CALL RE: PATIENT POTASSIUM 2.9. NEW ORDERS RECEIVED/WILL CARRY OUT.
--- NOTE | 2019-10-12 08:00 | NUR ---
Opening Shift Note Assumed care of patient, awake, alert, and oriented. Guard at bedside. Bed in lowest/locked position, bed rails up x2, call light within reach. No S/S of distress/SOB or pain. Instructed on POC and to call for assist PRN. Will continue to monitor for changes Q1hr and PRN.
[2019-10-12] MEDS ORDERED: POTASSIUM CHLORIDE 40 MEQ, LIDOCAINE 1% (LOCAL ANESTH.) 4 ML in SODIUM CHL 0.9% 100 ML IV ONE (08:15)
[2019-10-12 09:08] VITALS: BP 132/61
--- NOTE | 2019-10-12 10:10 | NUR ---
PAIN PATIENT C/O PAIN 10/10 TO ANTERIOR ABDOMEN. PATIENT STATING "IT FEELS ACHY AND I FEEL BLOATED." WILL MEDICATE ORDERED
[2019-10-12] MEDS: levoFLOXacin 500MG 100 ML IV SCH (10:23)
[2019-10-12] MEDS: ENOXAPARIN SOD 40 MG/0.4 ML SYRINGE SC SCH (10:23)
[2019-10-12] MEDS: PANTOPRAZOLE 40 MG/10 ML VIAL INJ IV SCH (10:23)
[2019-10-12] MEDS: SODIUM CHLORIDE 0.9% 1,000 ML IV SCH (10:24)
[2019-10-12 13:00] VITALS: BP 126/54
--- NOTE | 2019-10-12 14:10 | NUR ---
PAIN PATIENT C/O PAIN 10/10 ACHY TO ANTERIOR MEDIAL ABDOMEN. WILL MEDICATE ORDERED
--- NOTE | 2019-10-12 14:38 | NUR ---
MD ROUNDS DR STYLES AT BEDSIDE DISCUSSING POC WITH PATIENT. NEW ORDERS RECEIVED/WILL CARRY OUT
[2019-10-12] MEDS ORDERED: LORazepam 2MG/ML-1ML VIAL IV PRN (15:00)
[2019-10-12 16:17] VITALS: BP 133/64
--- NOTE | 2019-10-12 17:00 | NUR ---
PAIN PATIENT C/O PAIN 10/10 ACHY TO ANTERIOR MEDIAL ABDOMEN. WILL MEDICATE ORDERED
[2019-10-12] MEDS ORDERED: POTASSIUM CHL 20MEQ/100ML 100 ML IV ONE (19:45)
[2019-10-12 22:00] VITALS: BP 128/65
--- NOTE | 2019-10-13 01:40 | NUR ---
Report received from [employer]. Patient has no S/S of SOB/distress. Patient is on room air. Respirations even and unlabored.
[2019-10-13] MEDS: HYDROmorphone HCL 2 MG/ML VL IV PRN ×6 (01:43→22:37)
[2019-10-13] MEDS: SODIUM CHLORIDE 0.9% 1,000 ML IV SCH ×2 (01:46→13:05)
--- NOTE | 2019-10-13 02:00 | NUR ---
Endorsed care to [place]
--- NOTE | 2019-10-13 04:30 | NUR ---
Alvarado care done using Alvarado care wipes.
[2019-10-13 05:00] VITALS: BP 128/64
[2019-10-13] MEDS: metroNIDAZOLE 500MG/100ML 100 ML IV SCH ×3 (05:38→22:38)
[2019-10-13 06:14] LABS: Basophils # (auto) 0.1 10 ^3/uL (0-0.2); Eosinophils # (auto) 0.3 10 ^3/uL (0-0.8); Hemoglobin 9.4 g/dL (12.2-16.2)
[2019-10-13 06:16] LABS: Basophils % (auto) 0.5 % (0.0-2.0); Eosinophils % (auto) 1.8 % (0.0-7.0); Hematocrit 29.1 % (36.0-46.0); Lymphocytes # (auto) 0.9 10 ^3/uL (0.4-5.4); Lymphocytes % (auto) 5.2 % (10.0-50.0); Mean Corpuscular Hemoglobin 25.6 pg (28.0-32.0); Mean Corpuscular Hgb Conc. 32.3 g/dL (32.0-36.0); Mean Corpuscular Volume 79.3 fL (80.0-100.0); Monocytes # (auto) 1.9 10 ^3/uL (0-1.3); Monocytes % (auto) 10.7 % (0.0-12.0); Neutrophils # (auto) 14.2 10 ^3/uL (1.6-8.6); Neutrophils % (auto) 81.8 % (37.0-80.0); Platelet Count (auto) 547 10^3/uL (140-450); Red Blood Cells 3.67 10^6/uL (4.0-5.20); White Blood Cell 17.3 10^3/uL (4.4-10.8)
[2019-10-13 06:38] LABS: BUN/Creatinine Ratio 35.5; Calcium 8.6 mg/dL (8.5-10.1)
[2019-10-13 06:58] LABS: Red Cell Distribution Width 27.3 % (11.8-14.3)
--- NOTE | 2019-10-13 07:00 | NUR ---
CLOSING NOTE Patient has no S/S of SOB/distress. Patient is on room air. Respirations even and unlabored.
--- NOTE | 2019-10-13 07:45 | NUR ---
Opening Shift Note Assumed care of patient, awake, alert, and oriented. Guard at bedside. Bed in lowest/locked position, bed rails up x2, call light within reach. No S/S of distress/SOB. Patient c/o 6/10 pain to her abdomen, patient stated "she is comfortable at this time." Instructed on POC and to call for assist PRN. Will continue to monitor for changes Q1hr and PRN.
[2019-10-13 09:00] VITALS: BP 133/63
--- NOTE | 2019-10-13 09:45 | NUR ---
PT PHYSICAL THERAPY AT BEDSIDE. PERFORMING EXERCISES WITH PATIENT. PATIENT TOLERATING WELL
--- NOTE | 2019-10-13 10:00 | NUR ---
PAIN PATIENT C/O PAIN 10/10 ACHY TO ANTERIOR MEDIAL ABDOMEN. WILL MEDICATE ORDERED
[2019-10-13] MEDS: PANTOPRAZOLE 40 MG/10 ML VIAL INJ IV SCH (10:06)
[2019-10-13] MEDS: ENOXAPARIN SOD 40 MG/0.4 ML SYRINGE SC SCH (10:06)
[2019-10-13] MEDS: levoFLOXacin 500MG 100 ML IV SCH (10:06)
[2019-10-13 13:00] VITALS: BP 134/65
--- NOTE | 2019-10-13 14:12 | NUR ---
PAIN PATIENT C/O PAIN 10/10 CRAMPING TO ANTERIOR UPPER MEDIAL ABDOMEN. WILL MEDICATE ORDERED
[2019-10-13 17:00] VITALS: BP 128/61
--- NOTE | 2019-10-13 17:55 | NUR ---
PAIN PATIENT C/O PAIN 10/10 CRAMPING TO ANTERIOR UPPER MEDIAL ABDOMEN. WILL MEDICATE ORDERED
[2019-10-13] MEDS ORDERED: POTASSIUM EFFERVESENT TAB 25 MEQ PO ONE (19:00)
--- NOTE | 2019-10-13 19:35 | NUR ---
Opening Shift Note Assumed care of patient, awake and alert. Guard at bedside. No S/S of distress/SOB or pain. Instructed on POC and to call for assist PRN, will continue to monitor for changes Q1hr and PRN.
[2019-10-13] MEDS: ONDANSETRON HCL 4 MG/2 ML VIAL IV PRN (20:31)
[2019-10-14] VITALS (7 sets, daily range): BP systolic 106–123; BP diastolic 55–63
[2019-10-14] MEDS: metroNIDAZOLE 500MG/100ML 100 ML IV SCH ×3 (05:44→21:31)
[2019-10-14] MEDS: SODIUM CHLORIDE 0.9% 1,000 ML IV SCH ×2 (05:45→16:28)
[2019-10-14] MEDS: HYDROmorphone HCL 2 MG/ML VL IV PRN ×5 (05:46→22:40)
--- NOTE | 2019-10-14 05:54 | NUR ---
Patient complained of pain at 10/10. Pain medication pulled and prepared. Patient sleeping at this time. Lights turned on and antibiotic hung, patient still asleep. Will recheck patient if she still needs pain medication before the end of shift. Care continued.
[2019-10-14 07:02] LABS: Basophils # (auto) 0 10 ^3/uL (0-0.2); Lymphocytes # (auto) 1.1 10 ^3/uL (0.4-5.4); Neutrophils # (auto) 12.2 10 ^3/uL (1.6-8.6); Red Blood Cells 3.41 10^6/uL (4.0-5.20); White Blood Cell 15.4 10^3/uL (4.4-10.8)
[2019-10-14 07:13] LABS: Basophils % (auto) 0.3 % (0.0-2.0); Eosinophils # (auto) 0.4 10 ^3/uL (0-0.8); Eosinophils % (auto) 2.4 % (0.0-7.0); Mean Corpuscular Hemoglobin 26.4 pg (28.0-32.0); Mean Corpuscular Hgb Conc. 33.4 g/dL (32.0-36.0); Mean Corpuscular Volume 79.1 fL (80.0-100.0); Monocytes # (auto) 1.8 10 ^3/uL (0-1.3); Monocytes % (auto) 11.4 % (0.0-12.0); Neutrophils % (auto) 78.9 % (37.0-80.0); Platelet Count (auto) 608 10^3/uL (140-450)
--- NOTE | 2019-10-14 07:20 | NUR ---
Opening Shift Note Assumed care of patient, asleep in bed. No S/S of distress/SOB or pain. Will follow up with instructions on POC and to call for assist PRN, will continue to monitor for changes Q1hr and PRN.
--- NOTE | 2019-10-14 07:22 | NUR ---
Patient still comfortably lying in bed, eyes closed, breathing even, no facial grimace for pain. Report given and patient rounded with RAFFY Phelan.
[2019-10-14 07:27] LABS: Red Cell Distribution Width 27.7 % (11.8-14.3)
[2019-10-14 08:41] LABS: BUN/Creatinine Ratio 22.2; Calcium 8.3 mg/dL (8.5-10.1)
[2019-10-14 08:47] LABS: Potassium 2.8 mmol/L (3.5-5.1)
[2019-10-14] MEDS: levoFLOXacin 500MG 100 ML IV SCH (09:34)
[2019-10-14] MEDS: ENOXAPARIN SOD 40 MG/0.4 ML SYRINGE SC SCH (09:34)
[2019-10-14] MEDS: PANTOPRAZOLE 40 MG/10 ML VIAL INJ IV SCH (09:34)
[2019-10-14] MEDS: POTASSIUM CHL 20 Meq TABLET PO SCH ×5 (09:34→13:56)
--- NOTE | 2019-10-14 10:35 | NUR ---
PT Patient refused to be OOB and stated "not today" during morning visit. RAFFY Phelan was informed on patient's refusal. Addendum: 10/14/19 at 1036 by KAREN ALDRIDGE PTT Amended: Links added.
--- NOTE | 2019-10-14 10:39 | NUR ---
Pain Patient complained of pain to her upper and lower extremities. She also states that she has pain when she moves, that is why she refused PT. Pain at level 10 on a scale of 1-10 with 10 being the worst pain. Will medicate as ordered and reassess.
[2019-10-14] MEDS: ONDANSETRON HCL 4 MG/2 ML VIAL IV PRN (10:43)
--- NOTE | 2019-10-14 11:40 | NUR ---
Surgeon Rounding Dr. Kern at bedside. To advance diet to soft.
--- NOTE | 2019-10-14 13:30 | NUR ---
Alvarado Catheter Patient refusing to discontinue Alvarado catheter at this time. She wants to see how well she does with PT first.
--- NOTE | 2019-10-14 13:50 | NUR ---
Pain Patient complained of generalized body pain. States that she can work with PT if her pain goes away. Pain at level 10 on a scale of 1-10 with 10 being the worst pain. Will medicate as ordered and reassess.
--- NOTE | 2019-10-14 14:37 | NUR ---
Nutrition Followup Notes Pt wt is 70.6 kg. Pt is currently on a Mechanical soft, Cardiac diet. S/P procedure. Appetite is poor aeb avg 29% PO intake. Pt in no noted distress per RN doc. Will continue to monitor and follow up prn. Est. energy needs: 1152-8013 kcals (23-25 kcal/kgBW) d/t age Est. protein needs: 67-74 gms/day (1.0-1.1 gm/kgBW) d/t age Will continue to monitor and reassess prn. LABS: Alb 2.3 L GI: Last noted BM on 10/08/19 per RN doc BS: 20 low risk, Please refer to wound assessment report for full details. PES: Problem 1) Altered GI function r/t gastric bipass, intestinal resection aeb chronic diarrhea 2) Altered nutrition related lab values r/t current/chronic medical condition aeb hyperchlor, hyper glyc, severe hypoalb Comments 1) Continue to closely monitor pt PO intake to meet a goal of at least 75% of meals eaten 2) Consider Powerade, 1 container daily 3) If pt appetite is <75% intake consider additional nutrition support 4) Continue current plan of care Addendum: 10/14/19 at [address] Labs (10/13): K 2.8 L, Cr 0.36 L, Ca 8.3 L GI: Last noted BM on 10/09/19 per media associate BS: 17, mod risk, anterior medial abdominal incision.
--- NOTE | 2019-10-14 14:40 | NUR ---
Patient sitting out in chair at bedside.
[2019-10-14] MEDS: TAMSULOSIN HYDROCHLORIDE 0.4 MG CAP PO SCH (17:55)
--- NOTE | 2019-10-14 18:00 | NUR ---
Alvarado Catheter Order received to D/C Avlarado catheter. Patient refused stating that she wants to talk with Dr. Zimmerman first. Explained the risk involved with indwelling catheter, patient still refused.
--- NOTE | 2019-10-14 19:30 | NUR ---
ASSUMED CARE, PT. AWAKE, GUARD AT BEDSIDE, NO C/O PAIN, NOT IN DISTRESS.
--- NOTE | 2019-10-15 01:15 | NUR ---
DR. BARTON SEEN PT. OK TO NOT REMOVED GARRISON CATHETER, ORDERED CBC AND BMP.
[2019-10-15 05:00] VITALS: BP 99/51
[2019-10-15] MEDS: SODIUM CHLORIDE 0.9% 1,000 ML IV SCH ×2 (05:05→18:25)
[2019-10-15] MEDS: metroNIDAZOLE 500MG/100ML 100 ML IV SCH ×3 (05:10→21:31)
[2019-10-15] MEDS: HYDROmorphone HCL 2 MG/ML VL IV PRN ×3 (06:04→22:11)
[2019-10-15 07:37] LABS: Basophils # (auto) 0 10 ^3/uL (0-0.2); Monocytes # (auto) 1.3 10 ^3/uL (0-1.3)
[2019-10-15 07:39] LABS: Basophils % (auto) 0.2 % (0.0-2.0); Eosinophils # (auto) 0.7 10 ^3/uL (0-0.8); Eosinophils % (auto) 4.2 % (0.0-7.0); Hematocrit 26.5 % (36.0-46.0); Hemoglobin 8.8 g/dL (12.2-16.2); Lymphocytes # (auto) 1.2 10 ^3/uL (0.4-5.4); Lymphocytes % (auto) 7.4 % (10.0-50.0); Mean Corpuscular Hgb Conc. 33.3 g/dL (32.0-36.0); Mean Corpuscular Volume 78.3 fL (80.0-100.0); Neutrophils # (auto) 12.6 10 ^3/uL (1.6-8.6); Neutrophils % (auto) 80.2 % (37.0-80.0); Platelet Count (auto) 661 10^3/uL (140-450); Red Blood Cells 3.39 10^6/uL (4.0-5.20); White Blood Cell 15.7 10^3/uL (4.4-10.8)
[2019-10-15 07:47] LABS: Red Cell Distribution Width 27.7 % (11.8-14.3)
[2019-10-15 07:48] LABS: Calcium 8.5 mg/dL (8.5-10.1); Magnesium 1.6 mg/dL (1.6-2.6); Potassium 3.5 mmol/L (3.5-5.1)
[2019-10-15 07:52] LABS: BUN/Creatinine Ratio 26.2
[2019-10-15 08:00] VITALS: BP 124/64
--- NOTE | 2019-10-15 08:00 | NUR ---
ASSESSMENT NOTE PT IS ALERT ORIENTED X4, RESTING IN BED IN LOWFOWLER POSITION LEANING TOWARD RT SIDE OF THE BED, PT HAS RT UPPER ARM MID LINE, MID LINE SITE IS SWOLLEN TO 3+, STOPPED THE NS IMMEDIATELY, PATIENT'S BODY TEND TO LEAN TO THE RT SIDE, ASSISTED PT TO STRAIGHTEN UP HER BODY ALONG WITH HER LEGS, INFORM PT GOOD POSTURE MAY DECREASE HER PAIN, PT VERBALIS UNDERSTANDING, MID LINE INCISION AT THE ABDOMEN AREA IS OPEN TO AIR, NO SIGNS OF INFECTION NOTED, GARRISON CATHETER TO GRAVITY, YELLOW TO CLEAR, CALL LIGHT WITHIN REACH, A FEMALE GUARD AT BED SIDE AT ALL TIMES
[2019-10-15 09:00] VITALS: BP 104/54
--- NOTE | 2019-10-15 09:00 | NUR ---
IV insertion IV access obtained, via clean sterile technique by inserting 20 gauge catheter at after attempt(s). IV secured properly. No trauma to site. Patient tolerated procedure well.
[2019-10-15] MEDS: ENOXAPARIN SOD 40 MG/0.4 ML SYRINGE SC SCH (09:02)
[2019-10-15] MEDS: POTASSIUM CHL 20 Meq TABLET PO SCH (09:02)
--- NOTE | 2019-10-15 09:20 | NUR ---
PHYSICAL THERAPY AT BED SIDE TEACHING PT HOW TO USE THE RUBBER BANDS
--- NOTE | 2019-10-15 09:30 | NUR ---
RT UPPER ARM SWOLLEN SPOKE WITH DR Garrett LAWRENCE, MADE AWARE THAT UPON MY ASSESSMENT AT 0800, PATIENT'S RT UPPER ARM IS VERY SWOLLEN, DR Garrett BARTON GAVE ORDERS FOR RT ARM US TO R/O DVT, DISCONTINUE THE OLD PICC LINE AND START A NEW PICC LINE
[2019-10-15] MEDS: levoFLOXacin 500MG 100 ML IV SCH (10:20)
[2019-10-15] MEDS: PANTOPRAZOLE 40 MG/10 ML VIAL INJ IV SCH (10:21)
--- NOTE | 2019-10-15 10:30 | NUR ---
BRICK SETTER AT BED SIDE, PT IS TOLERATING IT WELL
--- NOTE | 2019-10-15 11:55 | NUR ---
PICC LINE NURSE LUDY AT BED SIDE
--- NOTE | 2019-10-15 12:45 | NUR ---
PT RECEIVED LEFT UPPER ARM 18 G MID LINE, TOLERATED WELL, OKAY TO USE
--- NOTE | 2019-10-15 12:45 | NUR ---
Midline Placement: Patient educated on need for midline placement. All risks and benefits explained and all questions and concerns addresses prior to procedure. 18g/10cm midline inserted via left brachial vein using Ultrasound. Sterile technique utilized. Blood return obtained from lumen and flushed easily with NS using proper technique. Midline secured with saline lock; biodisc and occlusive dressing applied. Primary RN notified. Midline lot #[id number]
--- NOTE | 2019-10-15 12:46 | NUR ---
IV removal IV DC'd with sterile technique, from left upper arm catheter fully intact. Pressure dressing applied to site. Patient tolerated procedure well. Discharged with aftercare instructions per MD. NOTE:
--- NOTE | 2019-10-15 12:50 | NUR ---
UPPER RT ARM MID LINE, REMOVED INTACT, TOLERATED WELL
[2019-10-15 13:00] VITALS: BP 117/56
[2019-10-15 17:00] VITALS: BP 132/60
[2019-10-15] MEDS: TAMSULOSIN HYDROCHLORIDE 0.4 MG CAP PO SCH (17:48)
--- NOTE | 2019-10-15 18:57 | NUR ---
PT CONTINUE STABLE, CONTINUE MONITORING
[2019-10-15] MEDS: ONDANSETRON HCL 4 MG/2 ML VIAL IV PRN (20:03)
--- NOTE | 2019-10-15 20:30 | NUR ---
Dr. Kern called: RN received call from Dr. Kern who wanted to follow up on the patient. RN made MD aware of patient current episode of vomiting. New orders were obtained and verified. RN to continue to monitor and assess patient.
--- NOTE | 2019-10-15 20:33 | NUR ---
N/V reassessment: RN reassessed patient and noted patient to no longer be vomiting. PRN Zofran was noted to be effective. RN will continue to monitor and assess patient.
--- NOTE | 2019-10-15 20:44 | NUR ---
Patient vomiting: Patient was noted to be vomiting. RAFFY administered SAMUEL Gonzalez. Addendum: 10/15/19 at 2048 by CARMEN STACK RN RN Correct time is 2000
--- NOTE | 2019-10-15 22:11 | NUR ---
Pain: Patient complaining of pain, RN administered PRN Dilaudid.
--- NOTE | 2019-10-15 22:41 | NUR ---
Pain reassessed: RN reassessed patient's pain and noted patient to be asleep. Patient resting comfortably in bed with no s/s of pain.
[2019-10-16] MEDS: diphenhdrAMINE HCL 50 MG/1 ML VL IV PRN ×3 (01:35→21:56)
[2019-10-16] MEDS: HYDROmorphone HCL 2 MG/ML VL IV PRN (03:41)
--- NOTE | 2019-10-16 03:41 | NUR ---
Pain: Patient complaining of pain, RN administered PRN Dilaudid.
[2019-10-16] MEDS: ONDANSETRON HCL 4 MG/2 ML VIAL IV PRN ×3 (03:42→20:51)
--- NOTE | 2019-10-16 04:11 | NUR ---
Pain reassessed: RN reassessed patient's pain and noted patient to be asleep. Patient resting comfortably in bed with no s/s of pain.
[2019-10-16 05:09] VITALS: BP 108/48
[2019-10-16] MEDS: metroNIDAZOLE 500MG/100ML 100 ML IV SCH ×3 (05:30→21:45)
--- NOTE | 2019-10-16 07:27 | NUR ---
Opening shift note Assumed care from NOC RAFFY Holt. Patient is AOx4 exhibiting no S/S of distress, SOB, or pain. Alvarado is intact, free of kinks and draining. Bed is in lowest locked position with side rails up x2, fall precautions in place and call light is within reach. Guard is at bedside. Updated patient on plan of care, patient verbalized understanding. I will continue to monitor q1hr and PRN.
[2019-10-16 09:27] VITALS: BP 130/59
[2019-10-16] MEDS: POTASSIUM CHL 20 Meq TABLET PO SCH (10:00)
--- NOTE | 2019-10-16 10:00 | NUR ---
Held medications Held AM protonix and potassium, patient is going for an upper GI series.
[2019-10-16] MEDS: SODIUM CHLORIDE 0.9% 1,000 ML IV SCH (10:06)
[2019-10-16] MEDS: ENOXAPARIN SOD 40 MG/0.4 ML SYRINGE SC SCH (10:06)
[2019-10-16] MEDS: levoFLOXacin 500MG 100 ML IV SCH (10:06)
--- NOTE | 2019-10-16 10:43 | NUR ---
PT Performed DACIA for UE using TB x 10 reps and LE from the bed. Patient she will have a procedure this morning and requested OOB activities in the afternoon. Addendum: 10/16/19 at 1045 by KAREN ALDRIDGE PTT Amended: Links added.
[2019-10-16] MEDS ORDERED: GASTROGRAFIN 120 ML SOL ONE (10:57)
[2019-10-16] MEDS ORDERED: EZ-GAS II GRANULES (RADIOLOGY USE) PO ONE (10:57)
--- NOTE | 2019-10-16 11:01 | NUR ---
Patient off unit Patient taken down for upper GI series.
--- NOTE | 2019-10-16 11:23 | NUR ---
Patient was brought back up from procedure, patient wasn't able to drink Gastrografin d/t nausea.
--- NOTE | 2019-10-16 11:50 | NUR ---
Physician at bed side MD Zimmerman at bedside, updated on patient status. Will follow through with MD orders.
[2019-10-16] MEDS: PANTOPRAZOLE 40 MG/10 ML VIAL INJ IV SCH (12:02)
--- NOTE | 2019-10-16 12:10 | NUR ---
Patient vomited 200ml of green emesis. MD notified that patient was unable to swallow potassium, MD ordered potassium IV.
[2019-10-16] MEDS: POTASSIUM CHL 20MEQ/100ML 100 ML IV SCH ×2 (13:00→15:24)
--- NOTE | 2019-10-16 13:10 | NUR ---
Notified monitor techs about patient running potassium. Asked to inform me of any changes.
[2019-10-16 13:34] VITALS: BP 145/62
[2019-10-16] MEDS: MORPHINE SULF INJ 2 MG/ML SYRINGE 1ML IV PRN (15:44)
[2019-10-16 16:56] VITALS: BP 127/62
[2019-10-16] MEDS: TAMSULOSIN HYDROCHLORIDE 0.4 MG CAP PO SCH (18:16)
--- NOTE | 2019-10-16 19:20 | NUR ---
Closing shift note Care of patient endorsed to NOC RAFFY Moody. Patient has no s/s of sob, pain or distress at this time.
[2019-10-16 22:00] VITALS: BP 119/61
[2019-10-17] MEDS: SODIUM CHLORIDE 0.9% 1,000 ML IV SCH ×2 (01:05→11:45)
[2019-10-17] MEDS: diphenhdrAMINE HCL 50 MG/1 ML VL IV PRN ×3 (04:32→22:12)
[2019-10-17 05:00] VITALS: BP 130/63
[2019-10-17] MEDS: metroNIDAZOLE 500MG/100ML 100 ML IV SCH ×3 (06:15→22:08)
[2019-10-17 06:16] LABS: Basophils # (auto) 0 10 ^3/uL (0-0.2); Eosinophils # (auto) 0.5 10 ^3/uL (0-0.8); Eosinophils % (auto) 2.5 % (0.0-7.0); Hemoglobin 9.1 g/dL (12.2-16.2)
[2019-10-17 06:18] LABS: Basophils % (auto) 0.3 % (0.0-2.0); Hematocrit 27.3 % (36.0-46.0); Lymphocytes # (auto) 1.2 10 ^3/uL (0.4-5.4); Lymphocytes % (auto) 6.6 % (10.0-50.0); Mean Corpuscular Hemoglobin 26.1 pg (28.0-32.0); Mean Corpuscular Hgb Conc. 33.3 g/dL (32.0-36.0); Mean Corpuscular Volume 78.3 fL (80.0-100.0); Monocytes # (auto) 1.7 10 ^3/uL (0-1.3); Monocytes % (auto) 9.4 % (0.0-12.0); Neutrophils % (auto) 81.2 % (37.0-80.0); Platelet Count (auto) 648 10^3/uL (140-450); Red Blood Cells 3.49 10^6/uL (4.0-5.20); White Blood Cell 18.4 10^3/uL (4.4-10.8)
[2019-10-17 06:20] LABS: Red Cell Distribution Width 28.3 % (11.8-14.3)
[2019-10-17 06:29] LABS: Calcium 8.3 mg/dL (8.5-10.1); Potassium 3.1 mmol/L (3.5-5.1)
--- NOTE | 2019-10-17 07:45 | NUR ---
Opening shift note Assumed care of patient from NOC RN Heidy. Patient is AOx4, exhibiting no S/S of distress, SOB, or pain at this time. Bed is in lowest locked position with side rails up x2, and call light is within reach. Updated patient on plan of care, she verbalized understanding. Will continue to monitor q1hr and PRN.
[2019-10-17 08:58] VITALS: BP 127/58
--- NOTE | 2019-10-17 09:32 | NUR ---
PT Patient pleasantly decline to be OOB during visit with c/o nausea and vomiting. RAFFY Vegas was notified. Addendum: 10/17/19 at 0933 by KAREN ALDRIDGE PTT Amended: Links added.
--- NOTE | 2019-10-17 09:50 | NUR ---
Patient vomited 100ml of dark green emesis. notified.
--- NOTE | 2019-10-17 09:55 | NUR ---
AT BEDSIDE Gladys Carlson at bedside, updated him on patient status. Will follow through with orders per MD.
[2019-10-17] MEDS: POTASSIUM CHL 20 Meq TABLET PO SCH (10:00)
[2019-10-17] MEDS: PANTOPRAZOLE 40 MG/10 ML VIAL INJ IV SCH (10:02)
[2019-10-17] MEDS: ENOXAPARIN SOD 40 MG/0.4 ML SYRINGE SC SCH (10:02)
[2019-10-17] MEDS: levoFLOXacin 500MG 100 ML IV SCH (10:02)
--- NOTE | 2019-10-17 11:35 | NUR ---
WOUND CARE NOTE: Wound care in to see patient per wound care request regarding sacral wound that are noted by bedside nurse upon assessment. Bedside nurse took photograph of patient's wound upon discovery for reference. Patient is 73 years old female with admitting diagnosis of Hypokalemia, Vomiting. Patient is resting in bed in Rm. 240B. Patient is awake, alert and oriented. Patient is in no stated pain at this time however reports of nausea. RAFFY Valentino at bedside medicating patient. Per reports, patient came in for weakness, vomiting and diarrhea, however no reports of bowel movement yesterday and today. Patient need assistance in turning and repositioning. Her Jaden score is 13. Skin/wound assessment done with the assistance of patient's nurse, RAFFY Valentino. Patient's coccyx has 2.5x1cm open partial thickness wound. Wound is dark red with bright and dark red inga wound, no drainage/odor noted. Coccyx wound is consistent with Stage 2 pressure injury. Her Rt lower buttock has 4x1.5cm thin brown dry skin appears to be dry resolving blister. Patient is not aware how long she has the coccyx and Rt gluteal wound. There's report of fall prior admission but patient reported she slid off chair but does not fall on to her buttocks. There's a wheel chair at bedside but patient reported that prior admission, she's not even sitting at wheel chair but pushes it and uses it as walker. Inga care given, applied Z Guard cream to coccyx wound and Rt gluteal dry blister, covered coccyx wound with Opti foam gentle dressing. Patient tolerated well, repositioned for comfort facing her Lt side. RAFFY Valentino at bedside. RECOMMENDATION: Nursing to continue with BID/PRN cleaning and application of Z Guard cream to coccyx and Rt buttock wound per MD order, Dietary consult , frequent turning and repositioning schedule as condition permits, redistribute pressure points with pillows, air mattress (ordered) continue monitoring by wound care while patient is hospitalized. Addendum: 10/17/19 at 1548 by Belinda Carlson RN Amended: Links added.
[2019-10-17] MEDS: ONDANSETRON HCL 4 MG/2 ML VIAL IV PRN (11:40)
[2019-10-17] MEDS: POTASSIUM CHL 20MEQ/100ML 100 ML IV SCH ×4 (11:44→22:41)
[2019-10-17 12:34] VITALS: BP 130/55
[2019-10-17 12:48] LABS: Magnesium 1.5 mg/dL (1.6-2.6); Phosphorus 3.8 mg/dL (2.5-4.90)
--- NOTE | 2019-10-17 13:20 | NUR ---
AIR MATTRESS: Air mattress ordered at [facility],Reference # [id number]; ETA 10/17/19 @1917, Call [facility] if need to follow up at [phone] Addendum: 10/17/19 at 1331 by Belinda Carlson RN Amended: Links added.
--- NOTE | 2019-10-17 15:00 | NUR ---
RECEIVED CALL BACK FROM DR. STYLES INFORMED MD PATIENT DOES NOT HAVE AN IV FOR PICC LINE. IS AWARE AND PUT IN ORDERS FOR PPN. MD WANTS PATIENT TO START TPN TOMORROW. WILL FOLLOW THROUGH WITH ORDERS.
[2019-10-17] MEDS ORDERED: PPN PER PHARMACY 0 ML IV SCH (15:15)
--- NOTE | 2019-10-17 15:15 | NUR ---
no guard at bedside. Went to do patient rounds, no guard was at bedside at this time.
[2019-10-17] MEDS: MAGNESIUM SULFATE 1GM/100ML 100 ML IV SCH ×2 (16:34→18:06)
[2019-10-17 16:57] VITALS: BP 130/62
[2019-10-17] MEDS: TAMSULOSIN HYDROCHLORIDE 0.4 MG CAP PO SCH (18:12)
--- NOTE | 2019-10-17 19:15 | NUR ---
closing shift note Care of patient endorsed to NOC RAFFY Moody. NO S/S of pain, distress, or sob noted at this time.
[2019-10-17] MEDS ORDERED: PPN PER PHARMACY IV NR ×5 (20:00)
[2019-10-17] MEDS ORDERED: POTASSIUM CHL 20MEQ/100ML 100 ML IV ONE ×2 (20:32→22:33)
--- NOTE | 2019-10-17 21:28 | NUR ---
IV insertion IV access obtained, via clean sterile technique by inserting 22 gauge catheter at left forearm after 2 attempt(s). IV secured properly. No trauma to site. Patient tolerated procedure well.
[2019-10-17 22:00] VITALS: BP 129/64
[2019-10-18] MEDS ORDERED: DEXTROSE (50%) 50ML SYRG IV SCH
[2019-10-18] MEDS: ACCU-CHEK COMFORT CURVE STRIP VI SCH ×4 (00:30→17:35)
[2019-10-18] MEDS: ONDANSETRON HCL 4 MG/2 ML VIAL IV PRN (00:47)
[2019-10-18 05:00] VITALS: BP 132/68
[2019-10-18] MEDS: InsuLIN REG 1unit/0.01ml Soln (100units/ml) SC SCH ×4 (06:00→17:35)
[2019-10-18 06:17] LABS: Basophils % (auto) 0.3 % (0.0-2.0); Eosinophils # (auto) 0.4 10 ^3/uL (0-0.8)
[2019-10-18 06:19] LABS: Basophils # (auto) 0.1 10 ^3/uL (0-0.2); Eosinophils % (auto) 2.3 % (0.0-7.0); Hematocrit 29.2 % (36.0-46.0); Hemoglobin 9.7 g/dL (12.2-16.2); Lymphocytes # (auto) 1.4 10 ^3/uL (0.4-5.4); Lymphocytes % (auto) 8.2 % (10.0-50.0); Mean Corpuscular Hemoglobin 26.1 pg (28.0-32.0); Mean Corpuscular Hgb Conc. 33.1 g/dL (32.0-36.0); Mean Corpuscular Volume 78.9 fL (80.0-100.0); Monocytes # (auto) 1.8 10 ^3/uL (0-1.3); Monocytes % (auto) 10.4 % (0.0-12.0); Neutrophils # (auto) 13.8 10 ^3/uL (1.6-8.6); Neutrophils % (auto) 78.8 % (37.0-80.0); Platelet Count (auto) 710 10^3/uL (140-450); White Blood Cell 17.6 10^3/uL (4.4-10.8)
[2019-10-18 06:22] LABS: Red Cell Distribution Width 28.2 % (11.8-14.3)
[2019-10-18] MEDS: SODIUM CHLORIDE 0.9% 1,000 ML IV SCH ×3 (06:31→20:18)
[2019-10-18] MEDS: metroNIDAZOLE 500MG/100ML 100 ML IV SCH ×3 (06:31→22:31)
[2019-10-18 06:36] LABS: Albumin 1.5 g/dL (3.4-5.0); Calcium 8.1 mg/dL (8.5-10.1); Magnesium 2.1 mg/dL (1.6-2.6); Potassium 3.2 mmol/L (3.5-5.1)
[2019-10-18 06:41] LABS: BUN/Creatinine Ratio 19.6; Bilirubin, Total 0.3 mg/dL (0.2-1.0); Phosphorus 2.5 mg/dL (2.5-4.90); Total Protein 5.6 g/dL (6.4-8.2)
--- NOTE | 2019-10-18 07:35 | NUR ---
Opening shift note Assumed care of patient from NOC Rn. Patient is AOx4 exhibiting no S/S of SOB, pain, or distress. Bed is in lowest locked position with side rails up x2, call light within reach. Updated patient on plan of care, patient verbalized understanding. I will continue to monitor q1hr and PRN.
[2019-10-18 09:00] VITALS: BP 127/63
[2019-10-18] MEDS: POTASSIUM CHL 20 Meq TABLET PO SCH (10:00)
[2019-10-18] MEDS: PROMETHAZINE HCL 25 MG/ML 1ML IV PRN (10:36)
[2019-10-18] MEDS: ENOXAPARIN SOD 40 MG/0.4 ML SYRINGE SC SCH (10:37)
[2019-10-18] MEDS: PANTOPRAZOLE 40 MG/10 ML VIAL INJ IV SCH (10:37)
[2019-10-18] MEDS: levoFLOXacin 500MG 100 ML IV SCH (10:37)
--- NOTE | 2019-10-18 11:16 | NUR ---
NGT ATTEMPT ASSISTED RAFFY LEE WITH NGT INSERTION. NGT WAS IN 35 CM AND PATIENT STARTED VOMITING GREEN EMESIS AND SHE STATED "TAKE IT OUT". EDUCATED THE PATIENT ON THE NEED FOR NGT AND PATIENT STILL REFUSED. SPOKE WITH DR. WASHINGTON AND INFORMED MD PATIENT REFUSED NGT, MD IS AWARE. NO NEW ORDERS GIVEN
[2019-10-18] MEDS: POTASSIUM CHL 20MEQ/100ML 100 ML IV SCH ×3 (11:56→16:13)
[2019-10-18 13:00] VITALS: BP 119/69
--- NOTE | 2019-10-18 13:22 | NUR ---
Nutrition Followup Notes Pt wt is 89.9 kg. Pt is currently NPO for 2 days. Pt having nausea/vomiting and noted to be weak per RN doc. Pt refused NG tube placement d/t to distress, waiting for new orders per RN doc. Pt is on TPN at 42 ml/hr, providing 540 kcals, 50g protein, 340 NCPs, meeting 32%-35% of energy needs, 68%-75% protein needs, and 0% fat. Will continue to monitor and follow up prn. Est. energy needs: 3473-5677 kcals (23-25 kcal/kgBW) d/t age Est. protein needs: 67-74 gms/day (1.0-1.1 gm/kgBW) d/t age Will continue to monitor and reassess prn. LABS: Na 135 L, Pot 3.2 L, Gluc 136 H, Ca 8.1 L, Pre Alb 6.0 L, Tot Pro 5.6 L, Alb 1.5 L GI: Last noted BM on 10/18/19, diarrhea, per RN doc BS: 13 moderate risk, Please refer to wound assessment report for full details. PES: Problem 1) Altered GI function r/t gastric bipass, intestinal resection aeb chronic diarrhea 2) Altered nutrition related lab values r/t current/chronic medical condition aeb hyperchlor, hyper glyc, severe hypoalb Comments 1) Continue to closely monitor pt PO intake to meet a goal of at least 75% of meals eaten 2) Consider Powerade, 1 container daily 3) If pt appetite is <75% intake consider additional nutrition support 4) Continue current plan of care
--- NOTE | 2019-10-18 13:22 | NUR ---
PT Patient pleasantly refused to be OOB or do PT during visit with c/o nausea and vomiting when moving. Addendum: 10/18/19 at 1323 by KAREN ALDRIDGE PTT Amended: Links added.
[2019-10-18 17:00] VITALS: BP 125/56
--- NOTE | 2019-10-18 17:42 | NUR ---
Called MD Zimmerman, left a message regarding Acute AB series results. Awaiting call back.
[2019-10-18] MEDS: TAMSULOSIN HYDROCHLORIDE 0.4 MG CAP PO SCH (18:22)
[2019-10-18] MEDS ORDERED: POTASSIUM CHL 20MEQ/100ML 100 ML IV SCH (19:00)
--- NOTE | 2019-10-18 19:00 | NUR ---
MD Umana at bedside, updated him on patient status. No new orders given at this time.
--- NOTE | 2019-10-18 19:10 | NUR ---
closing shift note care of patient endorsed to NOC RAFFY Moody. No s/s of pain, distress, and sob at this time.
[2019-10-18] MEDS ORDERED: PPN PER PHARMACY IV NR ×8 (20:00)
[2019-10-18] MEDS: HYDROCORTISONE 2.5% TOPICAL CREAM 30GM TUBE TOP SCH (21:40)
[2019-10-18 22:00] VITALS: BP 105/53
[2019-10-18] MEDS: diphenhdrAMINE HCL 50 MG/1 ML VL IV PRN (22:31)
[2019-10-19 05:00] VITALS: BP 120/60
[2019-10-19] MEDS: metroNIDAZOLE 500MG/100ML 100 ML IV SCH ×3 (05:38→22:08)
[2019-10-19] MEDS: InsuLIN REG 1unit/0.01ml Soln (100units/ml) SC SCH ×5 (05:55→23:30)
[2019-10-19] MEDS: ACCU-CHEK COMFORT CURVE STRIP VI SCH ×5 (05:56→23:30)
[2019-10-19 06:36] LABS: Eosinophils # (auto) 0.5 10 ^3/uL (0-0.8); Monocytes # (auto) 1.5 10 ^3/uL (0-1.3)
[2019-10-19 06:42] LABS: Basophils # (auto) 0.1 10 ^3/uL (0-0.2); Basophils % (auto) 0.4 % (0.0-2.0); Eosinophils % (auto) 3.2 % (0.0-7.0); Hematocrit 27.9 % (36.0-46.0); Hemoglobin 8.9 g/dL (12.2-16.2); Lymphocytes # (auto) 1.3 10 ^3/uL (0.4-5.4); Lymphocytes % (auto) 8.1 % (10.0-50.0); Mean Corpuscular Hemoglobin 25.5 pg (28.0-32.0); Mean Corpuscular Hgb Conc. 32.1 g/dL (32.0-36.0); Mean Corpuscular Volume 79.4 fL (80.0-100.0); Monocytes % (auto) 9.4 % (0.0-12.0); Neutrophils # (auto) 12.6 10 ^3/uL (1.6-8.6); Neutrophils % (auto) 78.9 % (37.0-80.0); Nucleated Red Blood Cells % 0.2 %; Platelet Count (auto) 640 10^3/uL (140-450); Red Blood Cells 3.51 10^6/uL (4.0-5.20)
[2019-10-19 06:44] LABS: Red Cell Distribution Width 27.5 % (11.8-14.3)
[2019-10-19 06:51] LABS: Albumin 1.4 g/dL (3.4-5.0); Magnesium 2.1 mg/dL (1.6-2.6); Potassium 3.2 mmol/L (3.5-5.1)
[2019-10-19 06:56] LABS: Bilirubin, Total 0.3 mg/dL (0.2-1.0); Phosphorus 2.7 mg/dL (2.5-4.90); Total Protein 5.5 g/dL (6.4-8.2)
[2019-10-19 08:34] VITALS: BP 114/62
--- NOTE | 2019-10-19 09:20 | NUR ---
Called MD Kern Notified him that the consent for PICC line needs to be signed, I asked him if he could come in to sign consents. Dr. Kern stated that he is aware that patient needs PICC line, he stated he will not be coming in until later tonight.
[2019-10-19] MEDS: POTASSIUM CHL 20 Meq TABLET PO SCH (10:00)
[2019-10-19] MEDS: levoFLOXacin 500MG 100 ML IV SCH (10:11)
[2019-10-19] MEDS: ENOXAPARIN SOD 40 MG/0.4 ML SYRINGE SC SCH (10:11)
[2019-10-19] MEDS: HYDROCORTISONE 2.5% TOPICAL CREAM 30GM TUBE TOP SCH ×2 (10:12→21:26)
[2019-10-19] MEDS: PANTOPRAZOLE 40 MG/10 ML VIAL INJ IV SCH (10:12)
[2019-10-19] MEDS: PROMETHAZINE HCL 25 MG/ML 1ML IV PRN (10:32)
[2019-10-19] MEDS: SODIUM CHLORIDE 0.9% 1,000 ML IV SCH (12:40)
--- NOTE | 2019-10-19 12:49 | NUR ---
Called MD coates and left a message regarding PICC line consent form. Awaiting call back.
--- NOTE | 2019-10-19 12:50 | NUR ---
Received call back from Dr. Zimmerman regarding PICC line consent form signature. Per MD he will be coming in to sign consents later today.
--- NOTE | 2019-10-19 12:54 | NUR ---
Called pathology regarding biopsy results from a hemicolectomy done on 10-09-2019. I was told that the pathologist has not yet reviewed the results. Awaiting update and call back.
[2019-10-19 13:00] VITALS: BP 118/61
--- NOTE | 2019-10-19 13:00 | NUR ---
Patient stated feeling wet. I assessed the area and noted urine on the absorbent pads. I assessed the tucker catheter balloon and noted 7ml of fluid, I added 3 ml of normal saline to the balloon using aseptic technique. The tucker is secured, patent and draining.
[2019-10-19] MEDS: POTASSIUM CHL 20MEQ/100ML 100 ML IV SCH ×3 (13:02→20:59)
--- NOTE | 2019-10-19 13:12 | NUR ---
SPOKE WITH PICC LINE RN VITALIY AND INFORMED HER OF PICC LINE ORDER FROM 10/15/2019 AND PICC HAS NOT BEEN INSERTED. INFORMED HER PATIENT HAS A VASYL MIDLINE, BUT THE PATIENT IS RECEIVING PPN AND NEEDS TPN WELLS A K RIDER AND ANTIBIOTICS. RN IS AWARE AND STATES SHE DOES NOT HAVE TIME TO DO IT. INFORMED MD STYLES, HE IS AWARE.
[2019-10-19] MEDS: MORPHINE SULF INJ 2 MG/ML SYRINGE 1ML IV PRN ×2 (13:25→23:47)
[2019-10-19] MEDS ORDERED: POTASSIUM CHLORIDE 80 MEQ, LIDOCAINE 1% (LOCAL ANESTH.) 6 ML in SODIUM CHL 0.9% 500 ML IV ONE (13:30)
[2019-10-19 14:08] LABS: INR 1.06 (0.9-1.15)
--- NOTE | 2019-10-19 16:19 | NUR ---
SPOKE WITH PICC LINE RAFFY BURKS AGAIN AND SHE STATES SHE DOES NOT HAVE TIME TO DO PICC LINE.
[2019-10-19 16:56] VITALS: BP 122/59
[2019-10-19] MEDS: TAMSULOSIN HYDROCHLORIDE 0.4 MG CAP PO SCH (18:44)
--- NOTE | 2019-10-19 19:35 | NUR ---
Opening Shift Note Assumed care of patient, awake and alert. No S/S of distress/SOB or pain. Insructed on POC and to callfor assist PRN, will continue to monitor for changes Q1hr and PRN. Fall and safety precautions in place. Call light within reach. aquatics lifeguard in room.
--- NOTE | 2019-10-19 19:40 | NUR ---
closing shift note care of patient endorsed to NOC RN. No s/s of pain, distress, and sob at this time.
--- NOTE | 2019-10-19 20:00 | NUR ---
TURNING Offered to assist patient in turning, but patient refusing, stating she's "comfortable." Educated patient in importance of frequent turning to prevent skin breakdown. Patient verbalized understanding, stating she will call when ready to turn. Will continue to monitor
--- NOTE | 2019-10-19 20:03 | NUR ---
PICC line placement Patient educated on need for PICC line placement. All risks and benefits explained and all questions and concerns addressed prior to procedure. Noted past medical history and allergies with no contraindications. INR and Plt counts within acceptable range. 5fr PICC line inserted via left brachial vein using [employer] US and Tip Location System. Sterile technique with maximum barrier precautions utilized. Blood return obtained from each of 2 lumens and each flushed easily with NS using proper technique. PICC secured with Stat-lock; biodisc and occlusive dressing applied. Stat portable chest x-ray obtained for PICC tip placement. *Baseline Arm Circumference 28cm. PICC lot #[id number]. Internal length 47cm External length 0cm
--- NOTE | 2019-10-19 20:43 | NUR ---
PICC LINE Chest xray confirming PICC line placement. IV medication will be administered at this time.
[2019-10-19] MEDS: PPN PER PHARMACY IV NR ×7 (20:59)
[2019-10-19] MEDS: SODIUM CHLOR 0.9% PF (SALINE LOCK) 10ML VIAL/SYR IV SCH (21:24)
[2019-10-19] MEDS: diphenhdrAMINE HCL 50 MG/1 ML VL IV PRN (21:27)
[2019-10-19 22:00] VITALS: BP 124/60
--- NOTE | 2019-10-20 | NUR ---
TURNING Offered to assist patient in turning, patient accepted. Patient turned onto left side, tolerated well. Will continue to monitor
--- NOTE | 2019-10-20 02:00 | NUR ---
TURNING Patient requesting to be repositioned back onto her back. Patient repositioned, tolerated well. Will continue to monitor
[2019-10-20] MEDS: diphenhdrAMINE HCL 50 MG/1 ML VL IV PRN ×2 (02:11→23:43)
--- NOTE | 2019-10-20 04:00 | NUR ---
TURNING Offered to assist patient in turning, patient accepted. Patient turned onto left side, tolerated well. Will continue to monitor
[2019-10-20 05:00] VITALS: BP 118/56
[2019-10-20] MEDS: metroNIDAZOLE 500MG/100ML 100 ML IV SCH ×3 (05:25→20:34)
[2019-10-20] MEDS: SODIUM CHLORIDE 0.9% 1,000 ML IV SCH ×2 (05:25→20:34)
[2019-10-20] MEDS: InsuLIN REG 1unit/0.01ml Soln (100units/ml) SC SCH ×4 (05:33→23:52)
[2019-10-20] MEDS: ACCU-CHEK COMFORT CURVE STRIP VI SCH ×4 (05:33→23:52)
[2019-10-20 06:44] LABS: Basophils # (auto) 0 10 ^3/uL (0-0.2); Lymphocytes # (auto) 1.2 10 ^3/uL (0.4-5.4)
[2019-10-20 06:47] LABS: Basophils % (auto) 0.3 % (0.0-2.0); Eosinophils # (auto) 0.4 10 ^3/uL (0-0.8); Eosinophils % (auto) 3.3 % (0.0-7.0); Hematocrit 29.3 % (36.0-46.0); Hemoglobin 9.5 g/dL (12.2-16.2); Lymphocytes % (auto) 8.7 % (10.0-50.0); Mean Corpuscular Hemoglobin 25.8 pg (28.0-32.0); Mean Corpuscular Hgb Conc. 32.3 g/dL (32.0-36.0); Mean Corpuscular Volume 79.9 fL (80.0-100.0); Monocytes # (auto) 1.3 10 ^3/uL (0-1.3); Monocytes % (auto) 9.7 % (0.0-12.0); Neutrophils # (auto) 10.6 10 ^3/uL (1.6-8.6); Platelet Count (auto) 644 10^3/uL (140-450); Red Blood Cells 3.67 10^6/uL (4.0-5.20); White Blood Cell 13.6 10^3/uL (4.4-10.8)
[2019-10-20 06:55] LABS: Red Cell Distribution Width 27.5 % (11.8-14.3)
[2019-10-20 07:04] LABS: Potassium 3.9 mmol/L (3.5-5.1)
[2019-10-20 07:07] LABS: Albumin 1.4 g/dL (3.4-5.0); BUN/Creatinine Ratio 18.9; Magnesium 1.8 mg/dL (1.6-2.6); Phosphorus 3.2 mg/dL (2.5-4.90)
[2019-10-20 07:11] LABS: Bilirubin, Total 0.2 mg/dL (0.2-1.0); Total Protein 5.6 g/dL (6.4-8.2)
--- NOTE | 2019-10-20 08:00 | NUR ---
Opening Shift Note Assumed care of patient, awake, alert and oriented X4. No S/S of distress/SOB or pain. Tele# 12, sinus rhythm @ 96 bpm. Left upper arm double lumen PICC with dressing clean, dry and intact. Midline federico intact, open to air, no drainage or odor noted. Urethral Alvarado catheter draining clear, yellow urine to gravity. Instructed on POC and to call for assist PRN, verbalized understanding. Bed locked, in lowest position, call light within reach, will continue to monitor for changes Q1hr and PRN.
[2019-10-20 09:00] VITALS: BP 128/63
--- NOTE | 2019-10-20 09:30 | NUR ---
SURGICAL Dr Kern at bedside for surgical follow up. New orders received and followed through. Patient updated on plan of care, verbalized understanding. Guard X1 remains at bedside.
[2019-10-20] MEDS ORDERED: TPN PER PHARMACY 0 ML IV SCH (10:30)
[2019-10-20] MEDS: PANTOPRAZOLE 40 MG/10 ML VIAL INJ IV SCH (10:36)
[2019-10-20] MEDS: levoFLOXacin 500MG 100 ML IV SCH (10:36)
[2019-10-20] MEDS: POTASSIUM CHL 20 Meq TABLET PO SCH (10:37)
[2019-10-20] MEDS: SODIUM CHLOR 0.9% PF (SALINE LOCK) 10ML VIAL/SYR IV SCH ×2 (10:37→20:35)
[2019-10-20] MEDS: HYDROCORTISONE 2.5% TOPICAL CREAM 30GM TUBE TOP SCH ×2 (10:38→20:35)
[2019-10-20] MEDS: ENOXAPARIN SOD 40 MG/0.4 ML SYRINGE SC SCH (10:38)
[2019-10-20] MEDS: MORPHINE SULF INJ 2 MG/ML SYRINGE 1ML IV PRN ×2 (11:02→20:36)
[2019-10-20] MEDS: PROMETHAZINE HCL 25 MG/ML 1ML IV PRN ×2 (11:35→20:36)
--- NOTE | 2019-10-20 11:45 | NUR ---
ROUNDS Dr Zimmerman at bedside for rounds, no new orders at this time. Patient updated on plan of care, verbalized understanding. Guard X1 remains at bedside.
[2019-10-20 12:41] VITALS: BP 119/62
--- NOTE | 2019-10-20 13:00 | NUR ---
ONCOLOGY Dr Vidal at bedside for Oncology consult. No new orders received at this time. Patient updated on plan of care, verbalized understanding.
[2019-10-20] MEDS: FLUCONAZOLE 200MG/100ML 100 ML IV SCH (13:55)
[2019-10-20 16:51] VITALS: BP 126/55
[2019-10-20] MEDS: TAMSULOSIN HYDROCHLORIDE 0.4 MG CAP PO SCH (18:03)
--- NOTE | 2019-10-20 19:17 | NUR ---
Care endorsed to RAFFY Guo, night nurse.
--- NOTE | 2019-10-20 19:30 | NUR ---
Opening Shift Note Assumed care of patient, awake and alert. No S/S of distress/SOB or pain. Insructed on POC and to callfor assist PRN, will continue to monitor for changes Q1hr and PRN. Fall and safety precautions in place. Call light within reach. fire prevention captain in room.
[2019-10-20] MEDS: PPN PER PHARMACY IV NR ×7 (20:01)
[2019-10-20] MEDS: TPN PER PHARMACY IV NR ×9 (20:02)
[2019-10-20 21:47] VITALS: BP 112/61
[2019-10-21 04:50] VITALS: BP 131/62
[2019-10-21] MEDS: metroNIDAZOLE 500MG/100ML 100 ML IV SCH ×3 (05:12→21:22)
[2019-10-21] MEDS: InsuLIN REG 1unit/0.01ml Soln (100units/ml) SC SCH ×4 (05:32→23:19)
[2019-10-21] MEDS: ACCU-CHEK COMFORT CURVE STRIP VI SCH ×4 (05:33→23:19)
[2019-10-21 07:32] LABS: Albumin 1.5 g/dL (3.4-5.0); Calcium 8.5 mg/dL (8.5-10.1)
[2019-10-21 07:36] LABS: BUN/Creatinine Ratio 15.4; Bilirubin, Total 0.2 mg/dL (0.2-1.0); Phosphorus 3.4 mg/dL (2.5-4.90); Total Protein 5.8 g/dL (6.4-8.2)
--- NOTE | 2019-10-21 08:00 | NUR ---
Opening shift note Assumed care of patient. Patient A&Ox4. Respirations even and non-labored with no s/s of distress. Patient fluids running, PICC lines patent and intact. Alvarado draining yellow, clear urine. Patient c/o wet linens. Filled Alvarado catheter balloon with 10 mL of NS. Changed bedding/chucks. Bed in lowest/locked position with 2 side rails up. Call light in reach. Will continue to monitor.
[2019-10-21 08:59] VITALS: BP 112/63
--- NOTE | 2019-10-21 09:15 | NUR ---
Pain Patient c/o abdominal pain 02/04. Administered Morphine and Phenergen per EMAR. Will continue to monitor.
[2019-10-21] MEDS: PROMETHAZINE HCL 25 MG/ML 1ML IV PRN ×3 (09:20→21:23)
[2019-10-21] MEDS: MORPHINE SULF INJ 2 MG/ML SYRINGE 1ML IV PRN ×3 (09:21→21:23)
[2019-10-21] MEDS: HYDROCORTISONE 2.5% TOPICAL CREAM 30GM TUBE TOP SCH ×2 (10:00→21:22)
[2019-10-21] MEDS: SODIUM CHLOR 0.9% PF (SALINE LOCK) 10ML VIAL/SYR IV SCH ×2 (10:00→21:22)
--- NOTE | 2019-10-21 10:30 | NUR ---
Pain reassessed Patient reassessed for pain after morphine administration. Patient stated that she felt better and rated her pain at 5/10. Will continue to monitor.
[2019-10-21] MEDS: PANTOPRAZOLE 40 MG/10 ML VIAL INJ IV SCH (10:37)
[2019-10-21] MEDS: levoFLOXacin 500MG 100 ML IV SCH (10:38)
[2019-10-21] MEDS: POTASSIUM CHL 20 Meq TABLET PO SCH (10:38)
[2019-10-21] MEDS: ENOXAPARIN SOD 40 MG/0.4 ML SYRINGE SC SCH (10:38)
[2019-10-21] MEDS: FLUCONAZOLE 200MG/100ML 100 ML IV SCH (10:39)
--- NOTE | 2019-10-21 10:50 | NUR ---
PT/INVESTIGATOR FRAUD bedside PT will return at noon for PT
--- NOTE | 2019-10-21 11:38 | NUR ---
Nutrition Followup Notes Pt wt is 89.9 kg (10/19/19). Weight trend is inconsistent with pt appearance. Pt is currently on Clear Liquid Diet with avg 63% PO intake over 2 meals, per clinical documentation nurse. Pt also receiving TPN at 61 ml/hr, providing 1530 kcals, 70g protein, 1250 NCPs, meeting 91%-99% of energy needs, 69-88% protein needs, and 14% fat. Noted new TPN order for tonight @61 ml/hr. Will continue to monitor and follow up prn. Est. energy needs: 2403-9486 kcals (23-25 kcal/kgBW) Est. protein needs: 80-101 gms/day (1.2-1.5 gm/kgBW) Labs: Na 135 L, BUN 6 L, Cr 0.39 L, serum glucose 131 H, AST 10 L, alkaline phosphatase 43 L, TP 5.8 L, albumin 1.5 L GI: Last noted BM on 10/20/19 per clinical documentation nurse BS: 14, moderate risk, stage 2 pressure injury to posterior coccyx, federico to anterior medial abdomen, per tow truck dispatcher assessment PES: Problem 1) Altered GI function r/t gastric bypass, intestinal resection aeb chronic diarrhea (partially resolved) 2) Altered nutrition related lab values r/t current/chronic medical condition aeb hyperchlor, hyper glyc, severe hypoalb Will continue to monitor PO intake, pertinent labs, skin status and weight trends. F/u in 2 to 3 days. 1) Suggest meeting protein needs with parenteral nutrition. 2) Continue to closely monitor pt PO intake to meet a goal of at least 75% of meals eaten. 3) Gradually advance oral diet and wean off TPN when appropriate. 4) Continue current plan of care
--- NOTE | 2019-10-21 12:11 | NUR ---
Blood Pressure Patient BP 160/77. Administered Labetolol per EMAR. Will continue to monitor. Addendum: 10/21/19 at 1329 by RENATE ARIAS RN RN Error, incorrect patient.
[2019-10-21 13:00] VITALS: BP 106/55
--- NOTE | 2019-10-21 13:47 | NUR ---
ROUNDS Dr Zimmerman at bedside for rounds, new orders received and followed through. Patient updated on plan of care, verbalized understanding.
[2019-10-21] MEDS: SODIUM CHLORIDE 0.9% 1,000 ML IV SCH (14:55)
--- NOTE | 2019-10-21 15:11 | NUR ---
Pain Patient c/o 7/10 pain to her abdomen. Administered morphine/phenergen per EMAR. Will continue to monitor.
[2019-10-21 17:12] VITALS: BP 122/68
[2019-10-21] MEDS: TAMSULOSIN HYDROCHLORIDE 0.4 MG CAP PO SCH (17:34)
--- NOTE | 2019-10-21 19:01 | NUR ---
Care endorsed to RAFFY Griffin, night nurse.
[2019-10-21] MEDS: diphenhdrAMINE HCL 50 MG/1 ML VL IV PRN (19:38)
[2019-10-21] MEDS: TPN PER PHARMACY IV NR ×9 (19:47)
[2019-10-21] MEDS ORDERED: TPN PER PHARMACY IV NR ×9 (20:00)
[2019-10-21 21:27] VITALS: BP 120/58
[2019-10-22 04:44] VITALS: BP 109/60
[2019-10-22] MEDS: PROMETHAZINE HCL 25 MG/ML 1ML IV PRN ×3 (04:50→21:03)
[2019-10-22] MEDS: MORPHINE SULF INJ 2 MG/ML SYRINGE 1ML IV PRN ×3 (04:50→21:04)
[2019-10-22] MEDS: ACCU-CHEK COMFORT CURVE STRIP VI SCH ×3 (05:40→17:52)
[2019-10-22] MEDS: metroNIDAZOLE 500MG/100ML 100 ML IV SCH ×3 (05:40→22:00)
[2019-10-22] MEDS: InsuLIN REG 1unit/0.01ml Soln (100units/ml) SC SCH ×3 (05:40→17:52)
[2019-10-22 06:17] LABS: Albumin 1.6 g/dL (3.4-5.0); BUN/Creatinine Ratio 22.9; Bilirubin, Total 0.3 mg/dL (0.2-1.0); Calcium 8.3 mg/dL (8.5-10.1); Magnesium 2.2 mg/dL (1.6-2.6); Phosphorus 3.4 mg/dL (2.5-4.90); Total Protein 5.9 g/dL (6.4-8.2)
[2019-10-22] MEDS: SODIUM CHLORIDE 0.9% 1,000 ML IV SCH (07:37)
[2019-10-22 09:00] VITALS: BP 103/57
[2019-10-22] MEDS: SODIUM CHLOR 0.9% PF (SALINE LOCK) 10ML VIAL/SYR IV SCH ×2 (10:02→22:00)
[2019-10-22] MEDS: POTASSIUM EFFERVESENT TAB 25 MEQ PO SCH (10:02)
[2019-10-22] MEDS: levoFLOXacin 500MG 100 ML IV SCH (10:02)
[2019-10-22] MEDS: PANTOPRAZOLE 40 MG/10 ML VIAL INJ IV SCH (10:02)
[2019-10-22] MEDS: HYDROCORTISONE 2.5% TOPICAL CREAM 30GM TUBE TOP SCH ×2 (10:03→22:00)
[2019-10-22] MEDS: FUROSEMIDE 20 MG TAB PO SCH (10:03)
--- NOTE | 2019-10-22 10:37 | NUR ---
PT Patient calmly requested not to do PT or OOB today due to the swelling on her LE. RAFFY Stokes was notified on patient's request. Addendum: 10/22/19 at 1038 by KAREN ALDRIDGE PTT Amended: Links added.
[2019-10-22] MEDS: FLUCONAZOLE 200MG/100ML 100 ML IV SCH (10:57)
[2019-10-22 13:01] VITALS: BP 109/58
[2019-10-22 17:00] VITALS: BP 115/56
[2019-10-22] MEDS: TAMSULOSIN HYDROCHLORIDE 0.4 MG CAP PO SCH (17:52)
--- NOTE | 2019-10-22 19:15 | NUR ---
opening note pt A&Ox4. pt is an inmate, and has a two federal guards at bedside. Alvarado is in place, no kinks, patent, lower than bladder, off floor and draining to gravity. respirations re even and non labored on room air. POC discussed with pt. bed in low locked position, and call light is within reach.
[2019-10-22] MEDS ORDERED: TPN PER PHARMACY IV NR ×9 (20:00)
[2019-10-22 21:43] VITALS: BP 93/46
[2019-10-23] MEDS: MORPHINE SULF INJ 2 MG/ML SYRINGE 1ML IV PRN ×5 (02:27→22:28)
[2019-10-23 05:33] VITALS: BP 118/70
[2019-10-23] MEDS: ACCU-CHEK COMFORT CURVE STRIP VI SCH ×5 (05:35→23:28)
[2019-10-23] MEDS: InsuLIN REG 1unit/0.01ml Soln (100units/ml) SC SCH ×4 (05:35→18:00)
[2019-10-23] MEDS: metroNIDAZOLE 500MG/100ML 100 ML IV SCH ×3 (05:35→21:25)
[2019-10-23 09:00] VITALS: BP 98/47
[2019-10-23] MEDS: PROMETHAZINE HCL 25 MG/ML 1ML IV PRN ×2 (09:12→22:27)
[2019-10-23] MEDS: PANTOPRAZOLE 40 MG/10 ML VIAL INJ IV SCH (10:24)
[2019-10-23] MEDS: SODIUM CHLOR 0.9% PF (SALINE LOCK) 10ML VIAL/SYR IV SCH ×2 (10:24→21:25)
[2019-10-23] MEDS: levoFLOXacin 500MG 100 ML IV SCH (10:24)
[2019-10-23] MEDS: POTASSIUM EFFERVESENT TAB 25 MEQ PO SCH (10:24)
[2019-10-23] MEDS: FUROSEMIDE 20 MG TAB PO SCH (10:25)
[2019-10-23] MEDS: HYDROCORTISONE 2.5% TOPICAL CREAM 30GM TUBE TOP SCH ×2 (10:25→22:52)
[2019-10-23] MEDS: FLUCONAZOLE 200MG/100ML 100 ML IV SCH (10:54)
[2019-10-23 13:00] VITALS: BP 108/50
[2019-10-23] MEDS: SODIUM CHLORIDE 0.9% 1,000 ML IV SCH ×2 (16:17)
[2019-10-23] MEDS: TAMSULOSIN HYDROCHLORIDE 0.4 MG CAP PO SCH (18:27)
--- NOTE | 2019-10-23 19:20 | NUR ---
opening note pt resting in right lateral position. pt has recently received pain medication, and her pain is currently manageable, she states it as being a 2 on pain scale. respirations are even and non labored on room air. this patient is an inmate, and has one federal guard at the bedside. bed is in low locked position, call light within reach.
[2019-10-23 21:28] VITALS: BP 127/66
--- NOTE | 2019-10-23 22:26 | NUR ---
pt requested pain medication. pt states that her "legs are hurting her". rates pain 8/10. will medicate.
--- NOTE | 2019-10-23 23:00 | NUR ---
reassessed pain pt states that the pain at her bilateral legs has subsided to about a 3/10 rating, and is much more manageable. will continue to monitor.
--- NOTE | 2019-10-24 00:35 | NUR ---
pt repositioned per request for better comfort
--- NOTE | 2019-10-24 02:15 | NUR ---
pt has complaints of itching, benedryl will be given PRN
[2019-10-24] MEDS: diphenhdrAMINE HCL 50 MG/1 ML VL IV PRN ×2 (02:33→21:04)
[2019-10-24 05:00] VITALS: BP 114/56
[2019-10-24] MEDS: ACCU-CHEK COMFORT CURVE STRIP VI SCH ×4 (05:16→23:46)
[2019-10-24] MEDS: InsuLIN REG 1unit/0.01ml Soln (100units/ml) SC SCH ×4 (05:16→23:47)
[2019-10-24] MEDS: metroNIDAZOLE 500MG/100ML 100 ML IV SCH (05:21)
[2019-10-24 06:54] LABS: Basophils # (auto) 0.1 10 ^3/uL (0-0.2); Hemoglobin 8.6 g/dL (12.2-16.2); Monocytes # (auto) 1.5 10 ^3/uL (0-1.3)
[2019-10-24 06:56] LABS: Basophils % (auto) 0.6 % (0.0-2.0); Eosinophils # (auto) 0.3 10 ^3/uL (0-0.8); Hematocrit 26.1 % (36.0-46.0); Lymphocytes # (auto) 1.5 10 ^3/uL (0.4-5.4); Lymphocytes % (auto) 14.4 % (10.0-50.0); Mean Corpuscular Hemoglobin 26.4 pg (28.0-32.0); Mean Corpuscular Hgb Conc. 32.9 g/dL (32.0-36.0); Mean Corpuscular Volume 80.2 fL (80.0-100.0); Monocytes % (auto) 14.1 % (0.0-12.0); Neutrophils # (auto) 7.1 10 ^3/uL (1.6-8.6); Neutrophils % (auto) 67.9 % (37.0-80.0); Nucleated Red Blood Cells % 0.1 %; Platelet Count (auto) 740 10^3/uL (140-450); Red Blood Cells 3.25 10^6/uL (4.0-5.20); White Blood Cell 10.5 10^3/uL (4.4-10.8)
[2019-10-24 06:59] LABS: Red Cell Distribution Width 26.7 % (11.8-14.3)
--- NOTE | 2019-10-24 06:59 | NUR ---
closing note pt is resting in left lateral position with eyes closed. respirations are even and non labored on room air. federal guard is at the bedside. no s/s of pain or discomfort. bed in low locked position, call light within reach.
[2019-10-24 07:12] LABS: Albumin 1.8 g/dL (3.4-5.0); Calcium 8.7 mg/dL (8.5-10.1); Potassium 3.4 mmol/L (3.5-5.1)
[2019-10-24 07:16] LABS: Bilirubin, Total 0.3 mg/dL (0.2-1.0); Total Protein 6.2 g/dL (6.4-8.2)
[2019-10-24] MEDS: MORPHINE SULF INJ 2 MG/ML SYRINGE 1ML IV PRN ×4 (08:32→22:14)
[2019-10-24] MEDS: PROMETHAZINE HCL 25 MG/ML 1ML IV PRN ×2 (08:32→22:13)
[2019-10-24 08:40] VITALS: BP 119/59
[2019-10-24] MEDS: SODIUM CHLORIDE 0.9% 1,000 ML IV SCH (09:20)
[2019-10-24] MEDS: SODIUM CHLOR 0.9% PF (SALINE LOCK) 10ML VIAL/SYR IV SCH ×2 (10:00→21:03)
[2019-10-24] MEDS: levoFLOXacin 500MG 100 ML IV SCH (10:30)
[2019-10-24] MEDS: HYDROCORTISONE 2.5% TOPICAL CREAM 30GM TUBE TOP SCH (12:00)
[2019-10-24] MEDS: PANTOPRAZOLE 40 MG/10 ML VIAL INJ IV SCH (12:26)
[2019-10-24] MEDS: POTASSIUM EFFERVESENT TAB 25 MEQ PO SCH ×3 (12:27→21:04)
[2019-10-24] MEDS: FLUCONAZOLE 200MG/100ML 100 ML IV SCH (12:29)
[2019-10-24] MEDS: FUROSEMIDE 20 MG TAB PO SCH ×3 (12:29→21:05)
[2019-10-24 12:38] VITALS: BP 117/69
[2019-10-24 17:11] VITALS: BP 105/54
--- NOTE | 2019-10-24 18:00 | NUR ---
PATIENT HAS BEEN UP TO CHAIR WITH ASSIST FROM PT. DIET ADVANCED TO SOFT AND TOLERATING. MEDICATING FOR PAIN EFFECTIVE. INCISION TO ABDOMEN OPEN TO AIR AND WELL APPROXIMATED.
[2019-10-24] MEDS: TAMSULOSIN HYDROCHLORIDE 0.4 MG CAP PO SCH (18:20)
--- NOTE | 2019-10-24 19:30 | NUR ---
Opening Shift Note Assumed care of patient, awake and alert. No S/S of distress/SOB. Fall and safety precautions in place. Call light within reach and able to use. Guard at bedside. Patient is refusing to wear SCD's, despite education and reinforcement of indication/importance. Instructed on POC and to call for assist PRN, will continue to monitor for changes Q1hr and PRN.
[2019-10-24 22:00] VITALS: BP 115/59
--- NOTE | 2019-10-24 22:14 | NUR ---
Pain Assessment Patient c/o 7/10 pain using adult pain scale to lower abdomen. Patient requests pain medication (see emar for administration). Will continue to monitor.
--- NOTE | 2019-10-24 23:44 | NUR ---
Pain Reassessment Patient pain reassessment level 4/10 using adult pain scale. Patient is at a tolerable pain level. Will continue to monitor.
[2019-10-25] MEDS: MORPHINE SULF INJ 2 MG/ML SYRINGE 1ML IV PRN ×6 (00:23→23:53)
--- NOTE | 2019-10-25 00:23 | NUR ---
Pain Assessment Patient c/o 8/10 pain using adult pain scale to lower abdomen. Patient requests pain medication (see emar for administration). Will continue to monitor.
--- NOTE | 2019-10-25 00:53 | NUR ---
Pain Reassessment Patient pain reassessment level 3/10 using adult pain scale. Patient reports pain level is tolerable. Will continue to monitor.
--- NOTE | 2019-10-25 02:54 | NUR ---
Pain Assessment Patient c/o 9/10 pain using adult pain scale to lower abdomen. Patient requests pain medication (see emar for administration). Will continue to monitor.
--- NOTE | 2019-10-25 03:24 | NUR ---
Pain Reassessment Patient pain reassessment level 3/10 using adult pain scale. Patient's pain is at a tolerable level, per patient. Will continue to monitor.
[2019-10-25 05:00] VITALS: BP 108/54
[2019-10-25] MEDS: InsuLIN REG 1unit/0.01ml Soln (100units/ml) SC SCH (06:00)
[2019-10-25] MEDS: ACCU-CHEK COMFORT CURVE STRIP VI SCH (06:07)
[2019-10-25 07:08] LABS: BUN/Creatinine Ratio 13.9; Calcium 7.6 mg/dL (8.5-10.1)
--- NOTE | 2019-10-25 07:15 | NUR ---
opening shift note care of patient assumed from NOC RN Og. Patient is AOX4, no s/s of sob, pain or distress noted at this time. Bed is in lowest locked position, side rails up x2, call light is within reach. Updated patient on plan of care, patient verbalized understanding. Will continue to monitor q1HR and PRN.
--- NOTE | 2019-10-25 07:34 | NUR ---
Received call from lab regarding a potassium level of 2.9. Paged for cotton machine operator hospitalist, awaiting call back.
[2019-10-25 07:36] LABS: Potassium 2.9 mmol/L (3.5-5.1)
--- NOTE | 2019-10-25 07:43 | NUR ---
Spoke to MD Andersen, per MD give 40 MEQ of potassium IV. Will follow through with orders.
[2019-10-25 08:51] VITALS: BP 117/63
[2019-10-25] MEDS: POTASSIUM CHL 20MEQ/100ML 100 ML IV SCH ×2 (09:07→12:56)
[2019-10-25] MEDS: PANTOPRAZOLE 40 MG/10 ML VIAL INJ IV SCH (09:07)
[2019-10-25] MEDS: FUROSEMIDE 20 MG TAB PO SCH ×2 (09:07→21:42)
[2019-10-25] MEDS: POTASSIUM EFFERVESENT TAB 25 MEQ PO SCH ×3 (09:07→21:42)
[2019-10-25] MEDS: PROMETHAZINE HCL 25 MG/ML 1ML IV PRN ×2 (09:08→20:04)
[2019-10-25] MEDS: SODIUM CHLOR 0.9% PF (SALINE LOCK) 10ML VIAL/SYR IV SCH ×2 (09:08→21:42)
[2019-10-25] MEDS: HYDROCORTISONE 2.5% TOPICAL CREAM 30GM TUBE TOP SCH ×2 (09:14→22:10)
[2019-10-25] MEDS: FLUCONAZOLE 200MG/100ML 100 ML IV SCH (11:41)
--- NOTE | 2019-10-25 11:54 | NUR ---
Attempted PT eval but pt refused. Will attempt again tomorrow.
[2019-10-25 13:21] VITALS: BP 107/56
--- NOTE | 2019-10-25 14:39 | NUR ---
Potassium effervescent tabs Gave one K+ tab of 25meq at 0907, order was changed by MD to 50 meq of K+. Per patient she did not want the second tablet until the afternoon. Gave second tablet at 1439 to equal total of 50 MEQ of K+.
[2019-10-25 16:52] VITALS: BP 117/62
--- NOTE | 2019-10-25 19:21 | NUR ---
closing shift note care of patient endorsed to NOC RAFFY Foley. No s/s of distress noted at this time.
--- NOTE | 2019-10-25 19:45 | NUR ---
Opening Shift Note / Pain/Nausea Assessment Assumed care of patient, awake and alert. No S/S of distress/SOB. Patient c/o 10/10 pain to lower abdomen and c/o nausea. Pain relief options and nausea-reducing methods discussed with patient. Patient requests pain medication and nausea medication for relief. Fall and safety precautions in place. Call light is within reach and able to use. Guard at bedside. Instructed on POC and to call for assist PRN, patient verbalized understanding and in agreement. Will continue to monitor for changes Q1hr and PRN.
--- NOTE | 2019-10-25 20:33 | NUR ---
Pain / Nausea Reassessment Patient pain level 4/10 and is at a tolerable pain level for patient, additionally, nausea is resolved. Will continue to monitor.
[2019-10-25 22:00] VITALS: BP 117/63
[2019-10-25] MEDS: diphenhdrAMINE HCL 50 MG/1 ML VL IV PRN (22:11)
--- NOTE | 2019-10-25 23:50 | NUR ---
Pain Assessment Patient c/o 9/10 pain to lower abdomen using adult pain scale. Patient states it feels aching and requests pain medication at this time for pain relief. See emar for administration. Patient given heat packs at this time for further relief. Will continue to monitor.
--- NOTE | 2019-10-26 00:23 | NUR ---
Pain Reassessment Patient pain level 3/10 and is at a tolerable pain level. Will continue to monitor.
--- NOTE | 2019-10-26 02:10 | NUR ---
Pain Assessment Patient c/o 9/10 pain using adult pain scale to lower abdomen. Patient educated on side effects of desired pain medication and of possibility of medication causing further discomfort in abdomen. Patient verbalized understanding and states that she wants the pain medication for now and if it does not resolves within the next couple of days then she will consider her decisions. See eMar for administration. Will continue to monitor.
[2019-10-26] MEDS: MORPHINE SULF INJ 2 MG/ML SYRINGE 1ML IV PRN ×7 (02:15→23:30)
--- NOTE | 2019-10-26 02:45 | NUR ---
Pain Reassessment Pain level 4/10 pain. Pain at tolerable level. Call light within reach and able to use. Will continue to monitor.
[2019-10-26 05:00] VITALS: BP 115/57
[2019-10-26 06:09] LABS: Calcium 9.5 mg/dL (8.5-10.1); Potassium 3.6 mmol/L (3.5-5.1)
[2019-10-26 06:12] LABS: BUN/Creatinine Ratio 12.5
[2019-10-26] MEDS: PROMETHAZINE HCL 25 MG/ML 1ML IV PRN ×3 (08:37→23:30)
[2019-10-26 09:00] VITALS: BP 115/62
[2019-10-26] MEDS: FUROSEMIDE 20 MG TAB PO SCH ×2 (09:41→21:19)
[2019-10-26] MEDS: HYDROCORTISONE 2.5% TOPICAL CREAM 30GM TUBE TOP SCH ×2 (09:41→21:19)
[2019-10-26] MEDS: POTASSIUM EFFERVESENT TAB 25 MEQ PO SCH ×2 (09:41→21:18)
[2019-10-26] MEDS: SODIUM CHLOR 0.9% PF (SALINE LOCK) 10ML VIAL/SYR IV SCH ×2 (09:41→21:18)
[2019-10-26] MEDS: PANTOPRAZOLE 40 MG/10 ML VIAL INJ IV SCH (09:41)
--- NOTE | 2019-10-26 11:00 | NUR ---
WOUND CARE NOTE: WOUND CARE TEAM IN TO REASSESS PATIENT'S WOUNDS TO COCCYX AND RIGHT BUTTOCK. PATIENT ADMITTED TO [facility] FOR HYPOKALEMIA AND VOMITING. PATIENT HAS MASD WITH SKIN EROSION vs PARTIAL THICKNESS PRESSURE ULCER TO COCCYX AND RIGHT BUTTOCK. OLD DRESSING REMOVED. NEW PHOTOGRAPHS TAKEN FOR REFERENCE. APPLIED ZGUARD AND OPTIFOAM GENTLE SACRAL DRESSING. PATIENT ON SPECIALTY AIR MATTRESS. RECOMMEND: CONTINUATION WITH ALL WOUND CARE ORDERS PREVIOUSLY PRESCRIBED BY MD. SIDE TO SIDE ONLY POSITIONING TOLERATED. ENSURE PATIENT IS DRY OF URINE AND STOOL. CONTINUED MONITORING BY WOUND CARE TEAM. Addendum: 10/26/19 at 1608 by TUAN STEVENS RN RN Amended: Links added.
--- NOTE | 2019-10-26 11:06 | NUR ---
PT Patient pleasantly refused to be OOB or do PT due to lack of sleep. RAFFY Crain was inside of room during refusal. Addendum: 10/26/19 at 1107 by KAREN ALDRIDGE PTT Amended: Links added.
[2019-10-26] MEDS: FLUCONAZOLE 200MG/100ML 100 ML IV SCH (11:32)
[2019-10-26 13:00] VITALS: BP 117/63
--- NOTE | 2019-10-26 14:07 | NUR ---
Nutrition Followup Notes Pt wt is 81.6 kg today Pt is currently on a Regular Diet with avg 39% PO intake over 7 meals, per pouch making machine operator. Pt is no longer receiving TPN. Pt with no distress per RN doc. Will continue to monitor and follow up prn. Est. energy needs: 8454-7309 kcals (23-25 kcal/kgBW) Est. protein needs: 80-101 gms/day (1.2-1.5 gm/kgBW) Labs: Na 133 L, Cl 97 L, BUN 6 L, Cr 0.48 L, TP 6.2 L, albumin 1.8 L GI: Pt has been incontinent, but with no BM noted on 10/25/19 per pouch making machine operator BS: 14, moderate risk, stage 2 pressure injury to posterior coccyx, federico to anterior medial abdomen, per head and neck surgeon assessment PES: Problem 1) Altered GI function r/t gastric bypass, intestinal resection aeb chronic diarrhea (partially resolved) 2) Altered nutrition related lab values r/t current/chronic medical condition aeb hyperchlor, hyper glyc, severe hypoalb Will continue to monitor PO intake, pertinent labs, skin status and weight trends. F/u in 2 to 3 days. 1) Suggest meeting protein needs with parenteral nutrition. 2) Continue to closely monitor pt PO intake to meet a goal of at least 75% of meals eaten. 3) Gradually advance oral diet and wean off TPN when appropriate. (RESOLVED) 4) Continue current plan of care
[2019-10-26 16:59] VITALS: BP 101/50
[2019-10-26] MEDS: TAMSULOSIN HYDROCHLORIDE 0.4 MG CAP PO SCH (17:24)
--- NOTE | 2019-10-26 18:00 | NUR ---
Emesis/PICC dressing change Patient had an episode of emesis. Phenergan was given. Patient was cleaned up and linen and gown were changed. This nurse also changed the PICC dressing as it has been 7 days and also the patient had emesis on the dressing. Emesis bag was provided in case it happens again. Patient stated she hadn't thrown up in 2 weeks but she wasn't feeling well and had a feeling it was going to happen again.
--- NOTE | 2019-10-26 19:45 | NUR ---
Opening Shift Note Assumed care of patient, awake and alert. No S/S of distress/SOB. Guard at bedside. Instructed on POC and to call for assist PRN, patient verbalized understanding and in agreement. Fall and safety precautions in place. Call light within reach and able to use. Will continue to monitor for changes Q1hr and PRN.
[2019-10-26] MEDS: diphenhdrAMINE HCL 50 MG/1 ML VL IV PRN ×2 (20:14→21:20)
--- NOTE | 2019-10-26 20:14 | NUR ---
Pain Assessment Patient c/o 10/10 pain using adult pain scale to lower abdomen. Patient educated on pain reducing options and requests pain medication for pain relief. Patient educated on side effects of desired medication. Patient verbalized understanding and requests morphine for pain relief. See emar for administration. Will continue to monitor.
--- NOTE | 2019-10-26 21:19 | NUR ---
Pain Reassessment Patient's pain level 0/10. Will continue to monitor.
[2019-10-26 22:00] VITALS: BP 130/74
[2019-10-27] MEDS: MORPHINE SULF INJ 2 MG/ML SYRINGE 1ML IV PRN ×6 (03:04→21:25)
[2019-10-27 05:00] VITALS: BP 120/68
--- NOTE | 2019-10-27 05:00 | NUR ---
TEMP PATIENT ORAL TEMP 99.2. COOLING MEASURES INITIATED. PATIENT EDUCATED ON REASONS/INDICATIONS/IMPORTANCE OF COOLING MEASURES, PATIENT VERBALIZED UNDERSTANDING AND IN AGREEMENT. WILL CONTINUE TO MONITOR.
[2019-10-27] MEDS: PROMETHAZINE HCL 25 MG/ML 1ML IV PRN ×3 (05:38→21:25)
--- NOTE | 2019-10-27 06:00 | NUR ---
TEMP RECHECK PATIENT TEMP RECHECKED 98.2 ORAL F. WILL CONTINUE TO MONITOR.
[2019-10-27 06:12] LABS: BUN/Creatinine Ratio 15.6; Potassium 3.6 mmol/L (3.5-5.1)
--- NOTE | 2019-10-27 06:40 | NUR ---
RECEIVED CALL BACK FROM ON-CALL HOSP UPDATED [facility]CALL [facility] OF CRITICAL AND PATIENT STATUS. ORDER TO HOLD DILANTIN. WILL CONTINUE TO MONITOR. Addendum: 10/27/19 at 0642 by IRMA BEEBE RN RN WRONG PATIENT
--- NOTE | 2019-10-27 07:15 | NUR ---
Opening Shift Note Assumed care of patient,awake ,alert,oriented no distress no discomfort,updated with plan of care and nursing routines,call light within reach patient reminded instructed to call for assistance.Will continue to monitor for changes Q1hr and PRN.
--- NOTE | 2019-10-27 08:50 | NUR ---
PHYSICAL THERAPY PATIENT REFUSED GETTING OOB,REQUESTED P.T. TO COME BACK AT NOON TIME
[2019-10-27 09:00] VITALS: BP 119/66
--- NOTE | 2019-10-27 09:01 | NUR ---
C/O ABDOMINAL PAIN,REQUESTED FOR PAIN MEDICATION,MEDICATED WITH MSO4 SEE eMAR FOR DETAIL
--- NOTE | 2019-10-27 09:29 | NUR ---
PT Patient refused to be OOB during morning visit and stated that she is vomiting again and feeling stressed with so many things happening to her. RAFFY Elizalde was notified on patients refusal. Addendum: 10/27/19 at 0931 by KAREN ALDRIDGE PTT Amended: Links added.
[2019-10-27] MEDS: PANTOPRAZOLE 40 MG/10 ML VIAL INJ IV SCH (10:17)
[2019-10-27] MEDS: SODIUM CHLOR 0.9% PF (SALINE LOCK) 10ML VIAL/SYR IV SCH ×2 (10:17→21:36)
[2019-10-27] MEDS: POTASSIUM EFFERVESENT TAB 25 MEQ PO SCH ×2 (10:17→21:26)
[2019-10-27] MEDS: FUROSEMIDE 20 MG TAB PO SCH ×2 (10:18→21:26)
[2019-10-27] MEDS: HYDROCORTISONE 2.5% TOPICAL CREAM 30GM TUBE TOP SCH ×2 (10:18→22:00)
[2019-10-27 13:00] VITALS: BP 111/67
--- NOTE | 2019-10-27 13:38 | NUR ---
C/O ABDOMINAL PAIN AND NAUSEA,PATIENT REQUESTED FOR PAIN AND NAUSEA MEDICATION,PHENERGAN 12.5 MG IV AND MSO4 2 MG IV GIVEN SEE eMAR.
--- NOTE | 2019-10-27 14:41 | NUR ---
PT Patient refused to be OOB again during afternoon PT visit. RAFFY Elizalde was notified on patient's refusal. Addendum: 10/27/19 at 1442 by KAREN ALDRIDGE PTT Amended: Links added.
[2019-10-27 16:47] VITALS: BP 117/66
--- NOTE | 2019-10-27 18:04 | NUR ---
GARRISON CATHETER DISCONTINUED
[2019-10-27] MEDS: TAMSULOSIN HYDROCHLORIDE 0.4 MG CAP PO SCH (18:05)
--- NOTE | 2019-10-27 19:29 | NUR ---
REPORT AND CONTINUATION OF CRE GIVEN TO NOC SHIFT INCOMING RN,NO DISTRESS NO DISCOMFORT.
--- NOTE | 2019-10-27 19:30 | NUR ---
Opening Shift Note Assumed care of patient. Patient is awake and alert. No S/S of distress/SOB or pain. Instructed on POC and to call for assist PRN, will continue to monitor for changes Q1hr and PRN. Bed locked in lowest position and bed rails up x2 with guard at bedside. Call light within reach.
[2019-10-27 21:57] VITALS: BP 119/68
[2019-10-28] VITALS (7 sets, daily range): BP systolic 102–186; BP diastolic 53–87
[2019-10-28] MEDS: diphenhdrAMINE HCL 50 MG/1 ML VL IV PRN
[2019-10-28] MEDS: MORPHINE SULF INJ 2 MG/ML SYRINGE 1ML IV PRN ×6 (03:00→22:43)
[2019-10-28] MEDS: PROMETHAZINE HCL 25 MG/ML 1ML IV PRN ×3 (05:09→22:43)
[2019-10-28 06:29] LABS: Basophils # (auto) 0.1 10 ^3/uL (0-0.2); Basophils % (auto) 0.8 % (0.0-2.0); Eosinophils # (auto) 0.2 10 ^3/uL (0-0.8); Eosinophils % (auto) 1.8 % (0.0-7.0); Hematocrit 28.7 % (36.0-46.0); Hemoglobin 9.4 g/dL (12.2-16.2); Lymphocytes # (auto) 1.7 10 ^3/uL (0.4-5.4); Lymphocytes % (auto) 14.6 % (10.0-50.0); Mean Corpuscular Hemoglobin 26.2 pg (28.0-32.0); Mean Corpuscular Hgb Conc. 32.7 g/dL (32.0-36.0); Mean Corpuscular Volume 80.1 fL (80.0-100.0); Monocytes # (auto) 1.4 10 ^3/uL (0-1.3); Monocytes % (auto) 12.3 % (0.0-12.0); Neutrophils # (auto) 8.3 10 ^3/uL (1.6-8.6); Neutrophils % (auto) 70.5 % (37.0-80.0); Red Blood Cells 3.58 10^6/uL (4.0-5.20); White Blood Cell 11.8 10^3/uL (4.4-10.8)
[2019-10-28 06:31] LABS: Red Cell Distribution Width 25.5 % (11.8-14.3)
[2019-10-28 06:32] LABS: Platelet Count (auto) 809 10^3/uL (140-450)
--- NOTE | 2019-10-28 06:36 | NUR ---
Critical lab value Paged hospitalist for critical lab value of elevated platelets
[2019-10-28 06:55] LABS: BUN/Creatinine Ratio 15.4; Calcium 8.9 mg/dL (8.5-10.1); Potassium 3.4 mmol/L (3.5-5.1)
--- NOTE | 2019-10-28 07:25 | NUR ---
Opening Shift Note Assumed care of patient, awake and alert. No S/S of distress/SOB, reports pain to abdomen. Instructed on POC and to call for assist PRN, will continue to monitor for changes Q1hr and PRN. []
[2019-10-28] MEDS: PANTOPRAZOLE 40 MG/10 ML VIAL INJ IV SCH (09:11)
[2019-10-28] MEDS: FUROSEMIDE 20 MG TAB PO SCH ×2 (09:12→22:44)
[2019-10-28] MEDS: SODIUM CHLOR 0.9% PF (SALINE LOCK) 10ML VIAL/SYR IV SCH ×2 (09:13→22:00)
[2019-10-28] MEDS: HYDROCORTISONE 2.5% TOPICAL CREAM 30GM TUBE TOP SCH ×2 (09:13→22:00)
[2019-10-28] MEDS: POTASSIUM EFFERVESENT TAB 25 MEQ PO SCH ×2 (09:13→22:43)
[2019-10-28] MEDS: TAMSULOSIN HYDROCHLORIDE 0.4 MG CAP PO SCH (17:23)
[2019-10-29] VITALS (7 sets, daily range): BP systolic 102–139; BP diastolic 41–68
--- NOTE | 2019-10-29 02:30 | NUR ---
900ml of vomitus. PRN medication for nausea/vomiting given earlier and not yet due at this time. Will continue to monitor for changes Q1H and PRN.
[2019-10-29] MEDS: PANTOPRAZOLE 40 MG/10 ML VIAL INJ IV SCH (10:25)
[2019-10-29] MEDS: MORPHINE SULF INJ 2 MG/ML SYRINGE 1ML IV PRN ×3 (10:25→21:24)
[2019-10-29] MEDS: POTASSIUM EFFERVESENT TAB 25 MEQ PO SCH ×2 (10:26→21:22)
[2019-10-29] MEDS: SODIUM CHLOR 0.9% PF (SALINE LOCK) 10ML VIAL/SYR IV SCH ×2 (10:26→21:23)
[2019-10-29] MEDS: HYDROCORTISONE 2.5% TOPICAL CREAM 30GM TUBE TOP SCH ×2 (10:27→21:23)
[2019-10-29] MEDS: FUROSEMIDE 20 MG TAB PO SCH ×2 (10:27→21:22)
--- NOTE | 2019-10-29 19:30 | NUR ---
received pt from day rn poc reviewed
[2019-10-29] MEDS: TAMSULOSIN HYDROCHLORIDE 0.4 MG CAP PO SCH (19:49)
[2019-10-29] MEDS: PROMETHAZINE HCL 25 MG/ML 1ML IV PRN (21:24)
--- NOTE | 2019-10-29 21:30 | NUR ---
pt c/o abd pain 03/07 medicated as ordered
--- NOTE | 2019-10-29 22:35 | NUR ---
pain relieved as ordered
[2019-10-30] MEDS: MORPHINE SULF INJ 2 MG/ML SYRINGE 1ML IV PRN ×5 (00:22→20:25)
--- NOTE | 2019-10-30 00:35 | NUR ---
awoke c/o abd pain 03/07 medicated as ordered
--- NOTE | 2019-10-30 00:39 | NUR ---
turned and repositioned with hob up, resp even and unlabored
[2019-10-30] MEDS: PROMETHAZINE HCL 25 MG/ML 1ML IV PRN (03:00)
--- NOTE | 2019-10-30 03:02 | NUR ---
pt vomited @500 ml green secretion, total bed bath and linen change, phenergan given as ordered, repositioned with hob up resp even and unlabored
--- NOTE | 2019-10-30 04:57 | NUR ---
resting with eyes closed no c/o discomfort at this time
[2019-10-30 05:00] VITALS: BP 126/70
[2019-10-30 06:48] LABS: BUN/Creatinine Ratio 34.7; Calcium 10.1 mg/dL (8.5-10.1); Potassium 3.9 mmol/L (3.5-5.1)
--- NOTE | 2019-10-30 06:54 | NUR ---
resting comfortable at this time report given to am nurse poc reviewed
--- NOTE | 2019-10-30 07:23 | NUR ---
Opening shift note Received report on the patient. Awake lying in bed. Patient shows no signs of distress at this time. Discussed the plan of care with the patient. Bed in lowest position, side rails up x2, and the call light is within reach. Will continue to monitor.
[2019-10-30 07:30] VITALS: BP 139/64
[2019-10-30 08:58] VITALS: BP 122/57
[2019-10-30] MEDS: PANTOPRAZOLE 40 MG/10 ML VIAL INJ IV SCH (10:34)
[2019-10-30] MEDS: SODIUM CHLOR 0.9% PF (SALINE LOCK) 10ML VIAL/SYR IV SCH ×2 (10:34→20:42)
[2019-10-30] MEDS: POTASSIUM EFFERVESENT TAB 25 MEQ PO SCH ×2 (10:34→20:42)
[2019-10-30] MEDS: HYDROCORTISONE 2.5% TOPICAL CREAM 30GM TUBE TOP SCH ×2 (10:36→20:43)
[2019-10-30] MEDS: FUROSEMIDE 20 MG TAB PO SCH ×2 (10:36→22:30)
[2019-10-30] MEDS ORDERED: OMNIPAQUE ORAL SOLN 500ml 12mg/ml PO ONE (12:07)
[2019-10-30 12:33] VITALS: BP 116/66
--- NOTE | 2019-10-30 12:52 | NUR ---
Abd CT Patient refused the CT scan. notified.
[2019-10-30 17:00] VITALS: BP 127/70
[2019-10-30] MEDS: TAMSULOSIN HYDROCHLORIDE 0.4 MG CAP PO SCH (17:54)
--- NOTE | 2019-10-30 19:52 | NUR ---
RECEIVED PT FROM DAY RN POC REVIEWED
--- NOTE | 2019-10-30 19:52 | NUR ---
DR Garrett BARTON AT BEDSIDE DISCUSSED POC
[2019-10-30 22:00] VITALS: BP 112/66
[2019-10-30] MEDS: diphenhdrAMINE HCL 50 MG/1 ML VL IV PRN (23:00)
--- NOTE | 2019-10-31 01:07 | NUR ---
turned and repositioned with hob up resp even and unlabored, call light within reach
[2019-10-31 05:00] VITALS: BP 122/68
[2019-10-31] MEDS: MORPHINE SULF INJ 2 MG/ML SYRINGE 1ML IV PRN (06:09)
--- NOTE | 2019-10-31 06:16 | NUR ---
awoke c/o abd pain 03/07 medicated as ordered, partial bed bath given, left arm picc line dressing changed, turned and repositioned with hob up
--- NOTE | 2019-10-31 06:42 | NUR ---
report given to am nurse poc reviewed
--- NOTE | 2019-10-31 07:30 | NUR ---
Opening Shift Note Assumed care of patient, awake, alert, and oriented. No S/S of distress/SOB or pain. Bed in lowest locked position, bed rails up x2, call light within reach. Instructed on POC and to call for assist PRN. Will continue to monitor for changes Q1hr and PRN.
[2019-10-31 09:00] VITALS: BP 113/54
[2019-10-31] MEDS: FUROSEMIDE 20 MG TAB PO SCH ×2 (10:00→21:43)
[2019-10-31] MEDS: PANTOPRAZOLE 40 MG/10 ML VIAL INJ IV SCH (10:00)
[2019-10-31] MEDS: POTASSIUM EFFERVESENT TAB 25 MEQ PO SCH ×2 (10:00→21:44)
[2019-10-31] MEDS: SODIUM CHLOR 0.9% PF (SALINE LOCK) 10ML VIAL/SYR IV SCH ×2 (10:01→21:46)
[2019-10-31] MEDS: HYDROCORTISONE 2.5% TOPICAL CREAM 30GM TUBE TOP SCH ×2 (10:01→21:44)
[2019-10-31] MEDS ORDERED: HYDROcodone-ACET 10/325MG TAB PO PRN (10:15)
--- NOTE | 2019-10-31 10:50 | NUR ---
PAIN PATIENT C/O GENERALIZED BODY, ACHY PAIN 10/05. WILL MEDICATE PER MD ORDERS
[2019-10-31] MEDS: traMADol HCL 50 MG TAB PO PRN ×2 (11:01→17:04)
[2019-10-31] MEDS: DOCUSATE SOD 100 MG CAP PO PRN (11:01)
[2019-10-31 12:48] VITALS: BP 117/65
--- NOTE | 2019-10-31 14:48 | NUR ---
Nutrition Followup Notes Pt wt is 77.1 kg today Pt is currently on a Regular Diet with a poor appetite aeb avg 30% PO intake over 5 meals, per sales representative supervisor. Pt appetite is trending down from last followup, most likely d/t vomiting. Pt is no longer receiving TPN. Pt with vomiting distress per RN doc. If pt appetite remains poor, consider reinstating supplemental nutrition support. Will continue to monitor and follow up prn. Est. energy needs: 8640-2245 kcals (23-25 kcal/kgBW) Est. protein needs: 80-101 gms/day (1.2-1.5 gm/kgBW) Labs: Na 130 L, Cl 91 L, Cr 0.49 L, TP 6.2 L, Albumin 1.8 L GI: Pt last BM noted on 10/31/19 per sales representative supervisor BS: 11, high risk, pressure ulcer to posterior coccyx, federico to anterior medial abdomen, per strip deburrer assessment. Please refer to wound assessment report for full details. PES: Problem 1) Altered GI function r/t gastric bypass, intestinal resection aeb chronic diarrhea (partially resolved) 2) Altered nutrition related lab values r/t current/chronic medical condition aeb hyperchlor, hyper glyc, severe hypoalb Will continue to monitor PO intake, pertinent labs, skin status and weight trends. F/u in 2 to 3 days. 1) Suggest meeting protein needs with parenteral nutrition. 2) Continue to closely monitor pt PO intake to meet a goal of at least 75% of meals eaten. 3) Gradually advance oral diet and wean off TPN when appropriate. (RESOLVED) 4) Continue current plan of care
--- NOTE | 2019-10-31 16:50 | NUR ---
PAIN PATIENT C/O ABDOMINAL, ACHY PAIN 11/05. WILL MEDICATE PER MD ORDERS
[2019-10-31 17:00] VITALS: BP 122/57
[2019-10-31] MEDS: TAMSULOSIN HYDROCHLORIDE 0.4 MG CAP PO SCH (17:03)
--- NOTE | 2019-10-31 17:09 | NUR ---
DRESSING CHANGE CLEANED SACRAL ULCER, APPLIED Z YRN, REPLACED DRESSING TO SACRUM. PATIENT TOLERATED WELL
--- NOTE | 2019-10-31 19:15 | NUR ---
Opening Shift Note Assumed care of patient, awake and alert, resting in bed comfortably. No S/S of distress/SOB or pain. Instructed on POC and to call for assist PRN, will continue to monitor for changes Q1hr and PRN. Call light and bedside table are within reach. Maintained safety precautions, bed is in lowest position and bed rails 2x.
[2019-10-31] MEDS: diphenhdrAMINE HCL 50 MG/1 ML VL IV PRN (20:59)
[2019-10-31 22:00] VITALS: BP 104/46
--- NOTE | 2019-11-01 05:27 | NUR ---
Dressing Change Cleaned and applied new dressing change to sacrum. Patient tolerated well, will continue to monitor Q1 and PRN.
[2019-11-01 05:32] VITALS: BP 100/54
[2019-11-01 07:08] LABS: Basophils # (auto) 0 10 ^3/uL (0-0.2); Eosinophils # (auto) 0.2 10 ^3/uL (0-0.8); Lymphocytes # (auto) 1.3 10 ^3/uL (0.4-5.4); Neutrophils # (auto) 5.5 10 ^3/uL (1.6-8.6)
[2019-11-01 07:13] LABS: Basophils % (auto) 0.4 % (0.0-2.0); Eosinophils % (auto) 2.2 % (0.0-7.0); Hematocrit 29.8 % (36.0-46.0); Hemoglobin 9.7 g/dL (12.2-16.2); Mean Corpuscular Hemoglobin 26.1 pg (28.0-32.0); Mean Corpuscular Hgb Conc. 32.6 g/dL (32.0-36.0); Monocytes % (auto) 12.7 % (0.0-12.0); Neutrophils % (auto) 68.7 % (37.0-80.0); Platelet Count (auto) 642 10^3/uL (140-450); Red Blood Cells 3.73 10^6/uL (4.0-5.20); White Blood Cell 8.1 10^3/uL (4.4-10.8)
[2019-11-01 07:38] LABS: Red Cell Distribution Width 24.3 % (11.8-14.3)
[2019-11-01 08:00] LABS: Potassium 3.5 mmol/L (3.5-5.1)
[2019-11-01 08:03] LABS: BUN/Creatinine Ratio 36.6; Calcium 9.7 mg/dL (8.5-10.1)
[2019-11-01 09:00] VITALS: BP 106/58
--- NOTE | 2019-11-01 09:35 | NUR ---
PAIN PATIENT C/O GENERALIZED BODY, ACHY PAIN 10/05. WILL MEDICATE PER MD ORDERS
[2019-11-01] MEDS: SODIUM CHLOR 0.9% PF (SALINE LOCK) 10ML VIAL/SYR IV SCH ×2 (09:42→22:00)
[2019-11-01] MEDS: PANTOPRAZOLE 40 MG/10 ML VIAL INJ IV SCH (09:42)
[2019-11-01] MEDS: POTASSIUM EFFERVESENT TAB 25 MEQ PO SCH ×2 (09:43→22:48)
[2019-11-01] MEDS: FUROSEMIDE 20 MG TAB PO SCH ×2 (09:43→22:50)
[2019-11-01] MEDS: HYDROCORTISONE 2.5% TOPICAL CREAM 30GM TUBE TOP SCH ×2 (09:43→22:51)
[2019-11-01] MEDS: traMADol HCL 50 MG TAB PO PRN (09:44)
[2019-11-01] MEDS: DOCUSATE SOD 100 MG CAP PO PRN (09:44)
--- NOTE | 2019-11-01 12:00 | NUR ---
MD ROUNDS DR STYLES AT BEDSIDE DISCUSSING POC WITH PATIENT. NEW ORDERS RECEIVED/ WILL CARRY OUT.
--- NOTE | 2019-11-01 12:10 | NUR ---
PHYSICAL THERAPY PATIENT AMBULATING IN THE HALLWAY WITH P.T.. PATIENT TOLERATED WELL. WILL CONTINUE TO MONITOR
[2019-11-01] MEDS ORDERED: POTASSIUM CHL 20 Meq TABLET PO ONE (12:30)
[2019-11-01 13:00] VITALS: BP 117/63
--- NOTE | 2019-11-01 14:10 | NUR ---
MD ROUNDS DR Garrett BARTON AT BEDSIDE DISCUSSING POC WITH PATIENT. NO NEW ORDERS RECEIVED AT THIS TIME. WILL CONTINUE TO MONITOR
--- NOTE | 2019-11-01 14:15 | NUR ---
PAIN PATIENT C/O GENERALIZED BODY, ACHY PAIN 10/05. WILL MEDICATE PER MD ORDERS
[2019-11-01] MEDS: HYDROcodone-ACET 10/325MG TAB PO PRN ×2 (14:29→22:52)
[2019-11-01 17:00] VITALS: BP 116/74
[2019-11-01] MEDS: TAMSULOSIN HYDROCHLORIDE 0.4 MG CAP PO SCH (18:35)
--- NOTE | 2019-11-01 19:28 | NUR ---
Opening Shift Note Assumed care of patient, awake and alert, resting in bed. No S/S of distress/SOB or pain. Instructed on POC and to call for assistance PRN, will continue to monitor for changes Q1hr and PRN. Safety precautions maintained bed is in lowest position and bed rails 2x. Call light and bedside table are within reach.
[2019-11-01 22:00] VITALS: BP 117/57
[2019-11-01] MEDS: ONDANSETRON HCL 4 MG/2 ML VIAL IV PRN (23:41)
--- NOTE | 2019-11-01 23:50 | NUR ---
Dressing Change Performed dressing change per MD orders on sacrum. Applied z guard and placed optifoam to sacrum. Patient tolerated well. Will continue to monitor Q1 and PRN.
[2019-11-02 05:00] VITALS: BP 103/60
[2019-11-02] MEDS: HYDROcodone-ACET 10/325MG TAB PO PRN ×4 (06:38→22:38)
--- NOTE | 2019-11-02 07:40 | NUR ---
Opening Shift Note Received report. Assumed care of patient, awake and alert laying in bed in semi-fowlers position. Patient is on room air with even and unlabored respirations. No S/S of distress/SOB or pain at this time. Bed is in lowest position, wheels are locked, side rails up x2 and call light is with in reach. Guard remains at bedside. Instructed on POC and to call for assist PRN, will continue to monitor for changes Q1hr and PRN.
[2019-11-02 07:46] LABS: BUN/Creatinine Ratio 27.1; Calcium 9.7 mg/dL (8.5-10.1)
[2019-11-02 09:00] VITALS: BP_SYST 148; BP_SYST 95; BP_DIAS 47; BP_DIAS 61
[2019-11-02] MEDS: PANTOPRAZOLE 40 MG/10 ML VIAL INJ IV SCH (09:55)
[2019-11-02] MEDS: FUROSEMIDE 20 MG TAB PO SCH ×2 (09:56→22:02)
[2019-11-02] MEDS: POTASSIUM EFFERVESENT TAB 25 MEQ PO SCH ×2 (09:56→22:03)
[2019-11-02] MEDS: HYDROCORTISONE 2.5% TOPICAL CREAM 30GM TUBE TOP SCH ×2 (09:57→22:00)
[2019-11-02] MEDS: SODIUM CHLOR 0.9% PF (SALINE LOCK) 10ML VIAL/SYR IV SCH ×2 (09:57→22:02)
--- NOTE | 2019-11-02 10:45 | NUR ---
PAIN PT REQUESTING SOMETHING FOR PAIN. PAIN IS GENERALIZED 6/10. NO PAIN MEDICATION AVAILABLE FOR THIS PAIN SCALE. PT INFORMED WILL HAVE TO PAGE THE DOCTOR FOR AN APPROPRIATE PAIN MEDICATION. PT REQUESTING THE NORCO THAT IS ORDERED, PT STATING THAT "THE NORCO WORKS FINE. I DON'T NEED SOMETHING STRONG" WILL PROVIDE MEDICATION REQUESTED. WILL CONTINUE TO MONITOR Q1H AND PRN.
--- NOTE | 2019-11-02 10:52 | NUR ---
WOUND CARE NOTE: Wound care in to see patient for reevaluation of sacral/coccyx wounds. Patient continue resting on air mattress in Rm. 240B. Patient is awake, alert and oriented. Patient is in no stated pain at this time. Patient need assistance in turning and repositioning. Her Jaden score is 17. Patient's coccyx continue to display 1x1cm open wound/ pressure injury. Wound is pale pink with yellow slough, inga wound is pink, no drainage/odor noted. Rt lower buttock with thin brown dry skin, now display intact pink scar tissue. Rt lower buttock wound on previous wound care visit is much improved however, coccyx wound looks progress to full thickness. Patient denies episode of loose stool. Patient educated on skin/wound care, encourage to side to side positioning and avoiding positioning on her back for longer time if possible. Patient verbalized understanding. Inga care given, applied Z Guard cream to lower buttock. Cleansed coccyx wound with wound cleanser moistened gauze, patted dry, applied Thera honey gel to open wound bed and covered coccyx wound with Opti foam gentle dressing. Patient tolerated well, repositioned for comfort facing her Rt side,redistributed pressure points with pillows. New photograph of wound are taken for reference. Dietary is on board. Communicate with staff, nurse dayton Cesar, patient's skin/wound plan of care, verbalized understanding. RECOMMENDATION: Daily/PRN dressing change to coccyx wound with Thera honey gel application per MD order,Continuation of all other wound care orders prescribed by MD, side to side positioning only except during meal time or P.T. activity, continue with skin/wound plan of care, continue monitoring by wound care while patient is hospitalized. Addendum: 11/02/19 at 1216 by Belinda Carlson RN Amended: Links added.
[2019-11-02] MEDS: DOCUSATE SOD 100 MG CAP PO PRN (11:29)
[2019-11-02 13:00] VITALS: BP_SYST 149; BP_SYST 96; BP_DIAS 53
--- NOTE | 2019-11-02 14:00 | NUR ---
Rounds Patient awake and alert laying in bed quietly. No S/S of distress/SOB or pain. Will continue to monitor changes q1hr and PRN.
[2019-11-02 17:00] VITALS: BP 126/78
[2019-11-02] MEDS: TAMSULOSIN HYDROCHLORIDE 0.4 MG CAP PO SCH (18:25)
[2019-11-02] MEDS: LACTULOSE 20Gm/30ML SOLN PO SCH ×2 (18:26→22:00)
[2019-11-02] MEDS: ONDANSETRON HCL 4 MG/2 ML VIAL IV PRN (18:28)
--- NOTE | 2019-11-02 19:25 | NUR ---
Opening Shift Note Received report from Giuliana AKBAR. Assumed care of patient, awake and alert. building guard deputy sheriff at bedside. No S/S of distress/SOB or pain. Instructed on POC and to call for assist PRN, will continue to monitor for changes Q1hr and PRN.
[2019-11-02 21:56] VITALS: BP 126/69
[2019-11-02] MEDS: diphenhdrAMINE HCL 50 MG/1 ML VL IV PRN (22:38)
[2019-11-03] MEDS: LACTULOSE 20Gm/30ML SOLN PO SCH ×7 (01:56→22:00)
[2019-11-03 05:00] VITALS: BP 120/58
[2019-11-03 08:00] VITALS: BP 107/61
[2019-11-03 09:00] VITALS: BP 107/61
[2019-11-03] MEDS: PANTOPRAZOLE 40 MG/10 ML VIAL INJ IV SCH (09:19)
[2019-11-03] MEDS: SODIUM CHLOR 0.9% PF (SALINE LOCK) 10ML VIAL/SYR IV SCH ×2 (09:19→22:01)
[2019-11-03] MEDS: FUROSEMIDE 20 MG TAB PO SCH ×2 (09:20→22:00)
[2019-11-03] MEDS: POTASSIUM EFFERVESENT TAB 25 MEQ PO SCH ×2 (09:20→22:00)
[2019-11-03] MEDS: HYDROcodone-ACET 10/325MG TAB PO PRN ×3 (09:21→18:09)
[2019-11-03] MEDS: ONDANSETRON HCL 4 MG/2 ML VIAL IV PRN ×3 (09:32→17:48)
[2019-11-03] MEDS: HYDROCORTISONE 2.5% TOPICAL CREAM 30GM TUBE TOP SCH ×2 (10:00→22:00)
--- NOTE | 2019-11-03 12:40 | NUR ---
DRESSING CHANGE COMPLETED DRESSING CHANGE TO COCCYX AREA. CLEANSED, APPLIED THERAHONEY AND OPTIFOAM. PATIENT TOLERATED WELL WITHOUT COMPLAINTS OF PAIN. PATIENT TURNING Q2H
[2019-11-03 13:00] VITALS: BP 106/55
[2019-11-03 17:00] VITALS: BP 107/71
[2019-11-03] MEDS: TAMSULOSIN HYDROCHLORIDE 0.4 MG CAP PO SCH (17:47)
--- NOTE | 2019-11-03 19:15 | NUR ---
Opening Shift Note Received report from Taty AKBAR. Assumed care of patient, awake and alert. guardian family member at bedside. No S/S of distress/SOB or pain. Instructed on POC and to call for assist PRN, will continue to monitor for changes Q1hr and PRN.
[2019-11-03 22:00] VITALS: BP 123/69
[2019-11-04] MEDS: HYDROcodone-ACET 10/325MG TAB PO PRN ×5 (00:53→21:49)
[2019-11-04] MEDS: diphenhdrAMINE HCL 50 MG/1 ML VL IV PRN ×2 (00:53→22:45)
[2019-11-04] MEDS: ONDANSETRON HCL 4 MG/2 ML VIAL IV PRN ×5 (00:57→21:44)
[2019-11-04] MEDS: LACTULOSE 20Gm/30ML SOLN PO SCH ×7 (02:00→22:30)
[2019-11-04 05:00] VITALS: BP 110/57
[2019-11-04 08:00] VITALS: BP 121/90
--- NOTE | 2019-11-04 09:30 | NUR ---
DR STYLES ON UNIT. INFORMED DR OF PATIENTS SODIUM LEVEL AND CONTINUED NAUSEA WITH OCCASIONAL VOMITING.
[2019-11-04] MEDS: HYDROCORTISONE 2.5% TOPICAL CREAM 30GM TUBE TOP SCH ×2 (10:00→22:00)
[2019-11-04] MEDS: SODIUM CHLOR 0.9% PF (SALINE LOCK) 10ML VIAL/SYR IV SCH ×2 (10:29→22:30)
[2019-11-04] MEDS: PANTOPRAZOLE 40 MG/10 ML VIAL INJ IV SCH (10:29)
[2019-11-04] MEDS: SODIUM CHLORIDE 0.9% 1,000 ML IV SCH ×2 (10:29→20:40)
[2019-11-04] MEDS: FUROSEMIDE 20 MG TAB PO SCH ×2 (10:30→22:44)
[2019-11-04] MEDS: POTASSIUM EFFERVESENT TAB 25 MEQ PO SCH ×2 (10:30→22:44)
[2019-11-04] MEDS ORDERED: SODIUM CHLORIDE LOCK 10 ML ONE (10:51)
[2019-11-04 12:00] VITALS: BP 104/51
--- NOTE | 2019-11-04 12:38 | NUR ---
Nutrition Followup Notes Wt: 73.3 kg Pt remains on Regular diet with slightly improved appetite aeb avg 53% PO intake over 4 meals, per obstetrician gynecologist. Will recommend supplemental nutrition to support nutrient needs. Will continue to monitor and follow up in 3 to 5 days. Est. energy needs: 1771-3439 kcals (23-25 kcal/kgBW) Est. protein needs: 80-101 gms/day (1.2-1.5 gm/kgBW) Labs /6: Na 130 L, Glucose 71 L Jaden Scale: 17, mod risk, pressure ulcer to coccyx, per wood milling machine operator assessment. PES: 1) Altered GI function r/t gastric bypass, intestinal resection aeb chronic diarrhea-(partially resolved) 2) Altered nutrition related lab values r/t current/chronic medical condition aeb hyperchloremia, hyperglycemia, severe hypoalbuminemia Recommendations: 1) Provide Ensure Enlive TID as nutrition supplement. 2) Continue to closely monitor pt PO intake and provide 1:1 feeding assistance as needed. 3) Continue current plan of care.
[2019-11-04 16:51] VITALS: BP 107/58
[2019-11-04] MEDS: TAMSULOSIN HYDROCHLORIDE 0.4 MG CAP PO SCH (17:37)
--- NOTE | 2019-11-04 19:00 | NUR ---
Opening Shift Note Assumed care of patient, awake and alert. No S/S of distress/SOB, patient complains of pain. Abdominal incision sutures dry and intact, incision open to air. No abnormalities noted. patient complains of pain around area. Instructed on POC and to call for assist PRN, will continue to monitor for changes Q1hr and PRN. Patient in the lowest possible position with bed rails up x2 and call light within reach. Will continue to monitor patient.
[2019-11-04 20:00] VITALS: BP 132/61
[2019-11-04 22:00] VITALS: BP 132/61
--- NOTE | 2019-11-04 22:00 | NUR ---
Patient has double lumen PICC line. Line being used is working well, other line is having difficulty flushing.
--- NOTE | 2019-11-04 22:00 | NUR ---
Patient refused lactulose. Patient stated that she took lactulose in the AM with her morning medications and threw up. Patient refused to take the medication again. Patient given Colace for constipation BID PRN. Will endorse to day shift. Will continue to monitor patient.
[2019-11-04] MEDS: DOCUSATE SOD 100 MG CAP PO PRN (22:45)
[2019-11-05] MEDS: LACTULOSE 20Gm/30ML SOLN PO SCH ×3 (01:57→10:00)
[2019-11-05] MEDS: HYDROcodone-ACET 10/325MG TAB PO PRN ×4 (03:15→18:46)
[2019-11-05] MEDS: ONDANSETRON HCL 4 MG/2 ML VIAL IV PRN ×4 (03:15→22:54)
--- NOTE | 2019-11-05 03:34 | NUR ---
Dressing change. Cleaned and changed patients dressing.
[2019-11-05 05:00] VITALS: BP 125/63
[2019-11-05 05:59] LABS: BUN/Creatinine Ratio 27.8; Calcium 9.1 mg/dL (8.5-10.1); Potassium 3.2 mmol/L (3.5-5.1)
[2019-11-05] MEDS: SODIUM CHLORIDE 0.9% 1,000 ML IV SCH ×3 (06:00→23:29)
[2019-11-05 09:00] VITALS: BP 116/60
--- NOTE | 2019-11-05 09:13 | NUR ---
DR BARTON SAW PATIENT AND DISCUSSED POC, HE REPORTS TO GIVE PATIENT ZOFRAN FOR HER NAUSEA. REPORTED TO MD PT REPORTS LACTULOSE IS MAKING HER VOMIT AND SHE HAS HAD NO BM. MD AWARE, AND REPORTS TO GIVE HER ZOFRAN.
[2019-11-05] MEDS: PANTOPRAZOLE 40 MG/10 ML VIAL INJ IV SCH (10:13)
[2019-11-05] MEDS: FUROSEMIDE 20 MG TAB PO SCH ×2 (10:17→17:40)
[2019-11-05] MEDS: POTASSIUM EFFERVESENT TAB 25 MEQ PO SCH (10:18)
[2019-11-05] MEDS: HYDROCORTISONE 2.5% TOPICAL CREAM 30GM TUBE TOP SCH ×2 (10:20→22:00)
[2019-11-05] MEDS: SODIUM CHLOR 0.9% PF (SALINE LOCK) 10ML VIAL/SYR IV SCH ×2 (10:21→22:36)
[2019-11-05] MEDS: DOCUSATE SOD 100 MG CAP PO PRN (10:24)
[2019-11-05] MEDS ORDERED: MILK OF MAGNESIA 30ML SUSP PO PRN (11:45)
[2019-11-05] MEDS ORDERED: POTASSIUM CHL 20 Meq TABLET PO ONE ×3 (11:45→14:00)
[2019-11-05] MEDS ORDERED: MILK OF MAGNESIA 30ML SUSP PO ONE (11:45)
[2019-11-05 13:00] VITALS: BP 123/65
[2019-11-05] MEDS: TAMSULOSIN HYDROCHLORIDE 0.4 MG CAP PO SCH (17:39)
[2019-11-05 17:51] VITALS: BP 100/64
[2019-11-05 22:00] VITALS: BP 118/68
[2019-11-05] MEDS: POTASSIUM CHL 20 Meq TABLET PO SCH (22:00)
--- NOTE | 2019-11-05 22:37 | NUR ---
MEDICATION PATIENT REFUSED KLOR-CON 40MEQ. PATIENT EDUCATED ON IMPORTANCE OF MEDICATION, VERBALIZED UNDERSTANDING. PATIENT STATES THAT SHE IS "JUST GOING TO THROW IT UP". WILL CONTINUE TO MONITOR
[2019-11-05] MEDS: diphenhdrAMINE HCL 50 MG/1 ML VL IV PRN (23:06)
[2019-11-05] MEDS ORDERED: SOD CHL 0.9%/ KCL 20MEQ 1,000 ML IV ONE (23:24)
[2019-11-06 05:00] VITALS: BP 112/64
[2019-11-06] MEDS: FUROSEMIDE 20 MG TAB PO SCH ×2 (05:31→18:32)
--- NOTE | 2019-11-06 08:45 | NUR ---
WOUND CARE WOUND ON COCCYX SPRAYED WITH WOUND CLEANSER AND PATTED DRY WITH 4X4'S THERAHONEY AND OPTIFOAM APPLIED. PT TOLERATED PROCEDURE WELL.
[2019-11-06] MEDS: HYDROcodone-ACET 10/325MG TAB PO PRN ×3 (08:58→22:59)
[2019-11-06] MEDS: HYDROCORTISONE 2.5% TOPICAL CREAM 30GM TUBE TOP SCH ×2 (08:59→22:00)
[2019-11-06] MEDS: PANTOPRAZOLE 40 MG/10 ML VIAL INJ IV SCH (08:59)
[2019-11-06] MEDS: SODIUM CHLOR 0.9% PF (SALINE LOCK) 10ML VIAL/SYR IV SCH ×2 (08:59→22:58)
[2019-11-06] MEDS: POTASSIUM CHL 20 Meq TABLET PO SCH ×2 (08:59→22:00)
[2019-11-06 09:00] VITALS: BP 115/61
[2019-11-06] MEDS: MILK OF MAGNESIA 30ML SUSP PO SCH ×2 (09:42→18:20)
--- NOTE | 2019-11-06 10:34 | NUR ---
SPOKE WITH DR STYLES, NOTIFIED MD PT HAD EMESIS LAST NIGHT AND STILL HAS NOT HAD A MD VIANEY AWARE. DR STYLES REPORTS HE DOES NOT WANT TO GIVE PATIENT ENEMA DUE TO PT RECENT SURGERY.
[2019-11-06 13:00] VITALS: BP 121/63
--- NOTE | 2019-11-06 14:32 | NUR ---
PT PICC LINE SHOWING SIGNS OF RESISTANCE WHEN FLUSHING. CALLED PBX AND PAGED PICC NURSE, AWAITING CALL BACK.
[2019-11-06 17:00] VITALS: BP 119/63
[2019-11-06] MEDS: SODIUM CHLORIDE 0.9% 1,000 ML IV SCH (18:20)
[2019-11-06] MEDS: ONDANSETRON HCL 4 MG/2 ML VIAL IV PRN ×2 (18:32→22:59)
--- NOTE | 2019-11-06 19:55 | NUR ---
Opening Shift Note Assumed care of patient, awake and alert. No S/S of distress/SOB or pain. Patient states that she has not had any vomiting so far today, and still no bowel movement. POC discussed and questions answered. Patient encouraged to call for assistance PRN, will continue to monitor for changes Q1hr and PRN.
[2019-11-06 22:00] VITALS: BP 100/47
[2019-11-06] MEDS: diphenhdrAMINE HCL 50 MG/1 ML VL IV PRN (22:58)
[2019-11-06] MEDS: SOD CHL 0.9%/ KCL 20MEQ 1,000 ML IV SCH (22:58)
--- NOTE | 2019-11-06 23:13 | NUR ---
WOUND CARE PRESSURE ULCER ON COCCYX CLEANSED WITH WOUND CLEANSER AND THERA HONEY APPLIED PER ORDERS. PATIENT TOLERATED WELL.
[2019-11-07 05:00] VITALS: BP 118/53
[2019-11-07] MEDS: HYDROcodone-ACET 10/325MG TAB PO PRN ×4 (05:16→22:24)
[2019-11-07] MEDS: ONDANSETRON HCL 4 MG/2 ML VIAL IV PRN ×4 (05:16→22:22)
--- NOTE | 2019-11-07 05:16 | NUR ---
Patient states she is having pain at incision site, federico are dry and intact, open to air. Topaz given at this time. Patient also has complaints of nausea, zofran given. Will continue to monitor.
[2019-11-07] MEDS: FUROSEMIDE 20 MG TAB PO SCH ×2 (05:57→17:56)
[2019-11-07] MEDS: SOD CHL 0.9%/ KCL 20MEQ 1,000 ML IV SCH ×2 (06:23→17:56)
--- NOTE | 2019-11-07 07:06 | NUR ---
PER PATIENT, NO BOWEL MOVEMENT AND NO EMESIS IN THE PAST 12HRS
--- NOTE | 2019-11-07 07:30 | NUR ---
Opening Note Assumed patient care from RICHI RN.
--- NOTE | 2019-11-07 08:25 | NUR ---
Patient Rounds Patient currently laying in bed, no signs of distress at this time, respirations even and unlabored, denies pain at this time; safety precautions in place, will continue to monitor.
[2019-11-07 08:38] VITALS: BP 104/49
--- NOTE | 2019-11-07 09:30 | NUR ---
Ambulated Patient up with PT, using walker. No signs of distress at this time, will continue to monitor.
[2019-11-07] MEDS: POTASSIUM CHL 20 Meq TABLET PO SCH ×2 (09:47→22:22)
[2019-11-07] MEDS: MILK OF MAGNESIA 30ML SUSP PO SCH (09:47)
[2019-11-07] MEDS: SODIUM CHLOR 0.9% PF (SALINE LOCK) 10ML VIAL/SYR IV SCH ×2 (09:51→22:22)
[2019-11-07] MEDS: PANTOPRAZOLE 40 MG/10 ML VIAL INJ IV SCH (09:51)
[2019-11-07] MEDS: HYDROCORTISONE 2.5% TOPICAL CREAM 30GM TUBE TOP SCH ×2 (09:57→22:00)
--- NOTE | 2019-11-07 11:30 | NUR ---
Pain Assessment/Management Patient complained of 6/10 pain and nausea. Patient requested [place]. Medication administered, see EMAR, will reassess and continue to monitor.
[2019-11-07 12:40] VITALS: BP 110/48
--- NOTE | 2019-11-07 14:00 | NUR ---
Wound Care Sacral wound cleaned per MD instructions. Optifoam placed, patient tolerated well; no signs of distress at this time, respirations are even and unlabored, safety precautions in place, call light within reach, will continue to monitor. Addendum: 11/07/19 at 1454 by DONAL STACK RN RN Coccyx wound
[2019-11-07 17:00] VITALS: BP 110/45
[2019-11-07] MEDS: DOCUSATE SOD 100 MG CAP PO PRN (18:02)
--- NOTE | 2019-11-07 18:02 | NUR ---
Patient Rounds Patient currently laying on right side. Patient requesting [place] for pain at incision. No signs of distress at this time, respirations even and unlabored; safety precautions in place, call light within reach.
--- NOTE | 2019-11-07 19:40 | NUR ---
Opening Shift Note Assumed care of patient, AOx4. No S/S of distress/SOB. Fall and safety precautions in place. Call light within reach and able to use. Instructed on POC and to call for assist PRN, patient verbalized understanding and in agreement. Will continue to monitor for changes Q1hr and PRN.
[2019-11-07 22:00] VITALS: BP 115/53
--- NOTE | 2019-11-07 22:15 | NUR ---
Nausea / Med Request Patient states she feels nauseous and would like Zofran for nausea relief. See emar for administration. Patient in semi-weber's position. Will continue to monitor.
--- NOTE | 2019-11-07 22:20 | NUR ---
Pain Assessment Patient c/o epigastric abdominal pain rated 8/10 using adult pain scale. Patient education on pain relieving options. patient verbalized understanding and in agreement. Patient requests [place] for pain relief. See emar for administration. Bed locked in lowest position with side rails up x2. Call light within reach and able to use. Will continue to monitor.
[2019-11-07] MEDS: diphenhdrAMINE HCL 50 MG/1 ML VL IV PRN (22:22)
--- NOTE | 2019-11-07 22:30 | NUR ---
OPTIFOAM TO SACRUM CHANGED PRN OPTIFOAM TO SACRUM CHANGED. PATIENT TOLERATED WELL. WILL CONTINUE TO MONITOR.
--- NOTE | 2019-11-07 22:50 | NUR ---
Nausea Reassessment At this time, patient states that her nausea is resolved. Head of bed raised. Emesis bag within reach. Bed locked in lowest position with call light within reach. Will continue to monitor.
--- NOTE | 2019-11-07 23:20 | NUR ---
Pain Reassessment Patient pain rated 0/10. Patient resting comfortably in bed. Fall and safety precautions in place. Will continue to monitor.
[2019-11-08] VITALS (7 sets, daily range): BP systolic 99–124; BP diastolic 53–64
--- NOTE | 2019-11-08 02:20 | NUR ---
Pain Assessment Patient c/o 10/10 pain using adult scale to abdomen, described as general and aching. Patient requests [place] for pain relief. See emar for administration. Will continue to monitor.
[2019-11-08] MEDS: SOD CHL 0.9%/ KCL 20MEQ 1,000 ML IV SCH ×3 (02:26→22:45)
[2019-11-08] MEDS: HYDROcodone-ACET 10/325MG TAB PO PRN ×5 (02:27→21:40)
--- NOTE | 2019-11-08 03:20 | NUR ---
Pain Reassessment Patient pain is 0 using enrique-faces pain scale. Patient resting comfortably in bed with side rails up x2. Call light within reach and able to use. Will continue to monitor.
[2019-11-08] MEDS: FUROSEMIDE 20 MG TAB PO SCH ×2 (05:38→17:34)
--- NOTE | 2019-11-08 06:30 | NUR ---
Pain Assessment Patient c/o generalized abdominal pain rated 8/10 using adult pain scale. Patient education on pain relieving options, patient verbalized understanding and in agreement. Patient requests [place] for pain relief. See emar for administration. Bed locked in lowest position with side rails up x2. Call light within reach and able to use. Will continue to monitor.
--- NOTE | 2019-11-08 07:00 | NUR ---
Opening Note Assumed patient care from RICHI RN.
--- NOTE | 2019-11-08 07:40 | NUR ---
Patient Rounds Patient is in semi Fowlers position, on her right side. Patient states she is currently having 6/10 pain, but states she does not need pain medication at this time. Safety precautions are in place. Respirations even and unlabored, will continue to monitor.
[2019-11-08] MEDS: MILK OF MAGNESIA 30ML SUSP PO SCH ×3 (09:09→21:41)
[2019-11-08] MEDS: PANTOPRAZOLE 40 MG/10 ML VIAL INJ IV SCH (09:10)
[2019-11-08] MEDS: POTASSIUM CHL 20 Meq TABLET PO SCH ×2 (09:10→21:39)
[2019-11-08] MEDS: SODIUM CHLOR 0.9% PF (SALINE LOCK) 10ML VIAL/SYR IV SCH ×2 (09:12→21:41)
[2019-11-08] MEDS: HYDROCORTISONE 2.5% TOPICAL CREAM 30GM TUBE TOP SCH ×2 (09:14→21:39)
--- NOTE | 2019-11-08 10:20 | NUR ---
Pt refused PT treatment today. Will attempt again tomorrow.
[2019-11-08] MEDS: DOCUSATE SOD 100 MG CAP PO PRN (11:49)
[2019-11-08] MEDS: ONDANSETRON HCL 4 MG/2 ML VIAL IV PRN ×3 (11:49→20:09)
[2019-11-08] MEDS: ENOXAPARIN SOD 30 MG/0.3 ML SYRINGE SC SCH (11:49)
--- NOTE | 2019-11-08 11:50 | NUR ---
Pain and Nausea Patient complaint of pain and nausea. See EMAR. Patient is currently laying on left side, respirations even and unlabored, no signs of distress at this time.
--- NOTE | 2019-11-08 15:26 | NUR ---
PICC Line Dressing PICC Line Dressing change done using sterile technique. Patient tolerated well, no signs of distress at this time. Safety precautions in place, will continue to monitor.
--- NOTE | 2019-11-08 16:01 | NUR ---
Pain/Nausea Management Patient complains of 10/10 pain at incision site and nausea at this time. Patient was given Zofran and [place] for pain, MD is aware. Patient is currently supine, with head of bed elevated; safety precautions are in place, call light within reach. Respirations are even and unlabored, will continue to monitor.
--- NOTE | 2019-11-08 17:34 | NUR ---
Patient Rounds Patient is currently laying in bed, semi-weber's position, on right side no signs of distress at this time. Patient states she currently has 4/10 pain and the [place] helped. She states she has no nausea at this time. Safety precautions are in place, call light within reach; will continue to monitor.
--- NOTE | 2019-11-08 17:50 | NUR ---
Coccyx dressing Change Coccyx dressing change done per MD orders. Patient tolerated well. Patient currently laying on right side. Safety precautions in place, call light within reach, patient states she is comfortable. No signs of distress at this time, respirations even and unlabored, will continue to monitor.
--- NOTE | 2019-11-08 19:45 | NUR ---
Opening Shift Note Assumed care of patient, AOx4. Patient is in no S/S of distress/SOB or pain. Fall, aspiration, and safety precautions are in place. Call light is within reach and able to use. Instructed on POC and to call for assist PRN, patient verbalized understanding and in agreement. Will continue to monitor for changes Q1hr and PRN.
--- NOTE | 2019-11-08 20:05 | NUR ---
NAUSEA PATIENT C/O NAUSEA. SHE STATES SHE FEELS LIKE SHE IS ABOUT TO THROW UP. PATIENT REQUESTS ZOFRAN FOR NAUSEA RELIEF (SEE EMAR FOR ADMINISTRATION). PATIENT REPOSITIONED IN BED AND HEAD OF THE BED RAISED TO 45 DEGREES. PATIENT GIVEN TOWELS AND EMESIS BAG PRECAUTION. WILL CONTINUE TO MONITOR.
--- NOTE | 2019-11-08 20:40 | NUR ---
NAUSEA RESOLVED PATIENT DENIES NAUSEA AT THIS TIME. PATIENT DENIES EPISODES OF EMESIS. HOB RAISED AND EMESIS BAG AT BEDSIDE PRECAUTION. WILL CONTINUE TO MONITOR.
--- NOTE | 2019-11-08 21:40 | NUR ---
PAIN ASSESSMENT Patient c/o generalized body pain including head, back, neck, and arms rated 10/10 using adult pain scale. Patient requests norco for pain management. See emar for administration. Will continue to monitor.
--- NOTE | 2019-11-08 21:40 | NUR ---
Patient refused Medication Patient educated on indication/reason for medication. Patient states she does not want to take medication. Educated reinforced at this time and patient continues to refuse. See emar. Will continue to monitor.
[2019-11-08] MEDS: diphenhdrAMINE HCL 50 MG/1 ML VL IV PRN (21:45)
--- NOTE | 2019-11-08 22:40 | NUR ---
Pain Reassessment Patient pain level 4/10. Patient is comfortable resting in bed which is locked in lowest position with side rails up x2. Call light within reach and able to use. Will continue to monitor.
[2019-11-09 04:52] VITALS: BP 125/64
--- NOTE | 2019-11-09 05:45 | NUR ---
Pain / Nausea Assessment Patient c/o epigastric abdominal pain 7/10 using adult pain scale. Patient additionally c/o nausea. Patient specifically requests norco and zofran for symptomatic relief. See emar for administration. Will continue to monitor.
[2019-11-09] MEDS: ONDANSETRON HCL 4 MG/2 ML VIAL IV PRN ×4 (05:47→22:46)
[2019-11-09] MEDS: FUROSEMIDE 20 MG TAB PO SCH ×2 (05:47→18:30)
[2019-11-09] MEDS: SOD CHL 0.9%/ KCL 20MEQ 1,000 ML IV SCH ×2 (05:47→18:45)
[2019-11-09] MEDS: HYDROcodone-ACET 10/325MG TAB PO PRN ×4 (05:48→22:45)
--- NOTE | 2019-11-09 06:17 | NUR ---
NAUSEA RESOLVED PATIENT DENIES NAUSEA AT THIS TIME. PATIENT DENIES EPISODES OF EMESIS. HOB RAISED AND EMESIS BAG AT BEDSIDE. WILL CONTINUE TO MONITOR.
--- NOTE | 2019-11-09 06:48 | NUR ---
Pain Reassessment Patient pain rated 2/10. Patient resting comfortably in bed with bed locked in lowest position with side rails up x2. Will continue to monitor.
[2019-11-09 07:30] VITALS: BP 123/72
--- NOTE | 2019-11-09 07:30 | NUR ---
Opening Note Assumed patient care from RICHI RN.
[2019-11-09 09:00] VITALS: BP 123/72
[2019-11-09] MEDS: HYDROCORTISONE 2.5% TOPICAL CREAM 30GM TUBE TOP SCH ×2 (10:00→21:22)
--- NOTE | 2019-11-09 10:00 | NUR ---
Patient Rounds/Linens Patient currently sitting up in chair, no signs of distress at this time. Linens changed. Patient assisted with bath/AM care by Summer.
[2019-11-09] MEDS: MILK OF MAGNESIA 30ML SUSP PO SCH ×2 (10:19→21:22)
[2019-11-09] MEDS: POTASSIUM CHL 20 Meq TABLET PO SCH ×2 (10:19→21:22)
[2019-11-09] MEDS: ENOXAPARIN SOD 30 MG/0.3 ML SYRINGE SC SCH (10:20)
[2019-11-09] MEDS: SODIUM CHLOR 0.9% PF (SALINE LOCK) 10ML VIAL/SYR IV SCH ×2 (10:20→21:21)
[2019-11-09] MEDS: PANTOPRAZOLE 40 MG/10 ML VIAL INJ IV SCH (10:20)
--- NOTE | 2019-11-09 11:30 | NUR ---
WOUND CARE NOTE: WOUND CARE TEAM IN TO REASSESS PATIENT'S WOUND TO COCCYX. PATIENT HAS RESOLVING PARTIAL THICKNESS PRESSURE ULCER TO COCCYX. PREVIOUS DRESSING REMOVED. NEW PHOTOGRAPH TAKEN FOR REFERENCE AT THIS TIME. APPLIED ZGUARD AND OPTIFOAM GENTLE SACRAL DRESSING. PATIENT ON SPECIALTY AIR MATTRESS. RECOMMEND: CONTINUATION WITH ALL WOUND CARE ORDERS PREVIOUSLY PRESCRIBED BY MD. SIDE TO SIDE POSITIONING TOLERATED. ENSURE PATIENT IS DRY OF URINE AND STOOL. CONTINUE WITH SKIN/WOUND CARE PLAN. CONTINUED MONITORING BY WOUND CARE TEAM. Addendum: 11/09/19 at 1616 by TUAN STEVENS RN RN Amended: Links added.
[2019-11-09 13:00] VITALS: BP 98/48
--- NOTE | 2019-11-09 14:49 | NUR ---
Nutrition Followup Notes Wt: 75.4 kg Pt remains on Regular diet with fair appetite aeb avg 50% PO intake over 3 meals, per gynaecological oncologist. Noted pt also had additional 480 ml oral intake. Pt stated that d/t her ongoing nausea, her appetite is poor but she knows the importance of trying to eat as much as she can. Pt was encouraged to continue to make the effort to eat more of her meals. Will continue to monitor and follow up in 3 to 5 days. Est. energy needs: 0055-7726 kcals (23-25 kcal/kgBW) Est. protein needs: 80-101 gms/day (1.2-1.5 gm/kgBW) Labs 11/08: Na 135 L, Cl 97 L, Glucose 61 L, Pre Alb 6.0 L, Alb 1.8 L, TP 6.2 L Jaden Scale: 18, mod risk, pressure ulcer to coccyx, per home care assistant assessment. PES: 1) Altered GI function r/t gastric bypass, intestinal resection aeb chronic diarrhea-(partially resolved) 2) Altered nutrition related lab values r/t current/chronic medical condition aeb hyperchloremia, hyperglycemia, severe hypoalbuminemia Recommendations: 1) Provide Ensure Enlive TID as nutrition supplement. 2) Continue to closely monitor pt PO intake and provide 1:1 feeding assistance as needed. 3) Continue current plan of care.
[2019-11-09 17:00] VITALS: BP 113/59
--- NOTE | 2019-11-09 18:31 | NUR ---
Pain/Nausea Management Patient stating she currently has 7/10 pain and nausea, requesting [place] and Zofran. Patient is comfortable, laying on right side with HOB >30degrees. No signs of distress at this time, respirations even and unlabored, safety precautions in place, will continue to monitor.
--- NOTE | 2019-11-09 19:20 | NUR ---
Closing Note Report given to Sherley STODDARD RN.
--- NOTE | 2019-11-09 19:21 | NUR ---
Endorsed IV insertion/PICC line removal (per MD request).
[2019-11-09 22:08] VITALS: BP 124/53
--- NOTE | 2019-11-09 22:30 | NUR ---
UNABLE TO OBTAIN IV ACCESS PER DAY SHIFT RN WOULD LIKE TO OBTAIN IV ACCESS AND THEN DC PICC. AT THIS TIME, THIS RN AND CLOTH MEASURER ARE UNABLE TO OBTAIN IV ACCESS. WILL NOTIFY DAY SHIFT RN OF INABILITY TO OBTAIN IV ACCESS D/T TO PATIENT'S VASCULATURE WHICH INDICATED INITIAL PICC ACCESS. WILL CONTINUE TO MONITOR.
[2019-11-09] MEDS: diphenhdrAMINE HCL 50 MG/1 ML VL IV PRN (22:45)
[2019-11-10] MEDS: SOD CHL 0.9%/ KCL 20MEQ 1,000 ML IV SCH ×2 (01:46→13:24)
[2019-11-10 05:12] VITALS: BP 113/65
[2019-11-10] MEDS: FUROSEMIDE 20 MG TAB PO SCH ×3 (05:23→18:03)
[2019-11-10] MEDS: ONDANSETRON HCL 4 MG/2 ML VIAL IV PRN ×3 (05:23→19:46)
[2019-11-10] MEDS: HYDROcodone-ACET 10/325MG TAB PO PRN ×3 (05:24→19:47)
--- NOTE | 2019-11-10 06:37 | NUR ---
REGARDING STAPLE REMOVAL ATTEMPTED TO CONTACT MD WASHINGTON AT THIS TIME WHO PERFORMED ABDOMINAL OPERATION ON PATIENT. INCISION APPEARS CLEAN, DRY, AND SKIN IS WELL-APPROXIMATED. AT THIS TIME, WAS NOT ABLE TO CONNECT TO MD. WILL NOTIFY DAY SHIFT RN TO CONTACT MD WASHINGTON AT APPROPRIATE TIME, APPROXIMATELY 0800 TO INQUIRE ABOUT STAPLE REMOVAL OF PATIENT'S ABDOMEN. WILL CONTINUE TO MONITOR.
--- NOTE | 2019-11-10 07:10 | NUR ---
Opening Shift Note: Assumed care of patient, awake and alert. No S/S of distress/SOB or pain. Bed in lowest locked position, side rails up x 2, call light within reach. Bed alarm activated for patient safety. Patient instructed on POC and to call for assist PRN, will continue to monitor for changes Q1hr and PRN.
[2019-11-10 09:00] VITALS: BP 105/52
[2019-11-10] MEDS: HYDROCORTISONE 2.5% TOPICAL CREAM 30GM TUBE TOP SCH ×2 (10:00→22:00)
[2019-11-10] MEDS: ENOXAPARIN SOD 30 MG/0.3 ML SYRINGE SC SCH (10:23)
[2019-11-10] MEDS: PANTOPRAZOLE 40 MG/10 ML VIAL INJ IV SCH (10:23)
[2019-11-10] MEDS: MILK OF MAGNESIA 30ML SUSP PO SCH ×2 (10:23→22:18)
[2019-11-10] MEDS: SODIUM CHLOR 0.9% PF (SALINE LOCK) 10ML VIAL/SYR IV SCH ×2 (10:23→22:18)
[2019-11-10] MEDS: POTASSIUM CHL 20 Meq TABLET PO SCH ×2 (10:24→22:18)
[2019-11-10 13:00] VITALS: BP 108/52
--- NOTE | 2019-11-10 14:06 | NUR ---
THIS RN UNABLE TO OBTAIN IV ACCESS AT THIS TIME.
[2019-11-10 16:21] VITALS: BP 160/77
--- NOTE | 2019-11-10 18:52 | NUR ---
DRESSING CHANGE SACRAL WOUND CLEANED AND DRESSED AT THIS TIME TO MD ORDERS. PATIENT TOLERATED WELL.
--- NOTE | 2019-11-10 19:14 | NUR ---
CLOSING NOTE: Patient resting in bed. No S/S of pain, distress or SOB at this time. Care endorsed to NOC RN.
--- NOTE | 2019-11-10 19:50 | NUR ---
Opening Shift Note Assumed care of patient, awake, AAOx4. No S/S of distress/SOB. C/O pain 01/05 to back. On room air and ambulatory to BSC. Bed in lowest locked position, side rails up x2, call light within reach. Instructed on POC and to call for assist PRN, will continue to monitor for changes Q1hr and PRN.
--- NOTE | 2019-11-10 19:50 | NUR ---
PAIN PATIENT C/O PAIN 01/05. NO AVAILABLE PAIN MEDICATION PRESCRIBED FOR PAIN LEVEL. PATIENT REQUESTED NORCO AND STATED, "NORCO HELPS ALOT". ADMINISTERED NORCO. WILL CONTINUE TO MONITOR.
[2019-11-10 21:17] VITALS: BP 107/49
[2019-11-10] MEDS: diphenhdrAMINE HCL 50 MG/1 ML VL IV PRN (22:20)
[2019-11-11] MEDS: SOD CHL 0.9%/ KCL 20MEQ 1,000 ML IV SCH ×3 (00:49→22:00)
[2019-11-11] MEDS: HYDROcodone-ACET 10/325MG TAB PO PRN ×4 (02:24→23:41)
[2019-11-11] MEDS: ONDANSETRON HCL 4 MG/2 ML VIAL IV PRN ×4 (02:25→23:41)
--- NOTE | 2019-11-11 02:49 | NUR ---
PATIENT HAD BM
[2019-11-11 04:52] VITALS: BP 119/62
[2019-11-11] MEDS: FUROSEMIDE 20 MG TAB PO SCH ×2 (05:46→17:33)
--- NOTE | 2019-11-11 08:40 | NUR ---
SACRAL WOUND CLEANSED, Z-GUARD APPLIED WITH OPTIFOAM APPLICATION.
[2019-11-11 09:00] VITALS: BP 102/64
[2019-11-11] MEDS: MILK OF MAGNESIA 30ML SUSP PO SCH ×2 (10:00→21:46)
[2019-11-11] MEDS: HYDROCORTISONE 2.5% TOPICAL CREAM 30GM TUBE TOP SCH ×2 (10:00→21:47)
--- NOTE | 2019-11-11 10:20 | NUR ---
DR. BARTON IN TO SEE PT.
[2019-11-11] MEDS: ENOXAPARIN SOD 30 MG/0.3 ML SYRINGE SC SCH (10:40)
[2019-11-11] MEDS: PANTOPRAZOLE 40 MG/10 ML VIAL INJ IV SCH (10:41)
[2019-11-11] MEDS: SODIUM CHLOR 0.9% PF (SALINE LOCK) 10ML VIAL/SYR IV SCH ×2 (10:41→21:46)
[2019-11-11] MEDS: POTASSIUM CHL 20 Meq TABLET PO SCH ×2 (10:42→21:46)
[2019-11-11 13:00] VITALS: BP 120/69
[2019-11-11 16:18] VITALS: BP 114/72
--- NOTE | 2019-11-11 19:30 | NUR ---
Opening Shift Note Assumed care of patient, awake, AAOx4. No S/S of distress/SOB or pain. On room air and ambulatory to BSC. Bed in lowest locked position, side rails up x2, call light within reach. Instructed on POC and to call for assist PRN, will continue to monitor for changes Q1hr and PRN.
[2019-11-11 22:00] VITALS: BP 119/49
[2019-11-11] MEDS: diphenhdrAMINE HCL 50 MG/1 ML VL IV PRN (23:40)
[2019-11-12 05:00] VITALS: BP 108/51
[2019-11-12] MEDS: FUROSEMIDE 20 MG TAB PO SCH ×2 (06:01→17:31)
[2019-11-12] MEDS: SOD CHL 0.9%/ KCL 20MEQ 1,000 ML IV SCH ×2 (06:01→17:42)
[2019-11-12 09:00] VITALS: BP 101/53
[2019-11-12] MEDS: PANTOPRAZOLE 40 MG/10 ML VIAL INJ IV SCH (09:32)
[2019-11-12] MEDS: MILK OF MAGNESIA 30ML SUSP PO SCH ×2 (09:32→22:51)
[2019-11-12] MEDS: POTASSIUM CHL 20 Meq TABLET PO SCH ×2 (09:32→22:51)
[2019-11-12] MEDS: ENOXAPARIN SOD 30 MG/0.3 ML SYRINGE SC SCH (09:33)
[2019-11-12] MEDS: ONDANSETRON HCL 4 MG/2 ML VIAL IV PRN ×4 (09:37→22:51)
[2019-11-12] MEDS: HYDROcodone-ACET 10/325MG TAB PO PRN ×4 (09:47→22:52)
[2019-11-12] MEDS: HYDROCORTISONE 2.5% TOPICAL CREAM 30GM TUBE TOP SCH (10:00)
[2019-11-12 13:00] VITALS: BP 107/51
[2019-11-12] MEDS: SODIUM CHLOR 0.9% PF (SALINE LOCK) 10ML VIAL/SYR IV SCH ×2 (14:13→22:50)
--- NOTE | 2019-11-12 14:59 | NUR ---
Nutrition Followup Notes Wt: 85.0 kg Pt remains on Regular diet with improved appetite in the last two meals aeb avg 63% x2 PO intake, per clinical documentation specialist. Pt was with abdominal pain and had refused meals in the last two days. Will continue to monitor NPO status, skin status, pertinent labs and weight trends. Will f/u in 3 to 5 days. Est. energy needs: 3543-9619 kcals (23-25 kcal/kgBW) Est. protein needs: 80-101 gms/day (1.2-1.5 gm/kgBW) Labs 11/11: Na 135 L, Cl 97 L, Glucose 61 L, Pre Alb 6.0 L, Alb 1.8 L, TP 6.2 L GI: Last Bm noted on 11/11/19 per RN doc. Jaden Scale: 17, mod risk, pressure ulcer to coccyx, per forest ranger assessment. PES: 1) Altered GI function r/t gastric bypass, intestinal resection aeb chronic diarrhea-(partially resolved) 2) Altered nutrition related lab values r/t current/chronic medical condition aeb hyperchloremia, hyperglycemia, severe hypoalbuminemia Recommendations: 1) Provide Ensure Enlive TID as nutrition supplement. 2) Continue to closely monitor pt PO intake and provide 1:1 feeding assistance as needed. 3) Continue current plan of care.
[2019-11-12 16:30] VITALS: BP 107/51
--- NOTE | 2019-11-12 17:53 | NUR ---
FOAM DRESSING APPLIED TO COCCYX. PATIENT REQUESTED IT TO BE REMOVED WHILE TRYING TO HAVE A BOWEL MOVEMENT.
[2019-11-12 21:36] VITALS: BP 111/63
[2019-11-12] MEDS: diphenhdrAMINE HCL 50 MG/1 ML VL IV PRN (22:51)
[2019-11-13] MEDS: HYDROCORTISONE 2.5% TOPICAL CREAM 30GM TUBE TOP SCH ×3 (01:55→21:41)
[2019-11-13] MEDS: ONDANSETRON HCL 4 MG/2 ML VIAL IV PRN ×4 (03:41→21:42)
[2019-11-13] MEDS: HYDROcodone-ACET 10/325MG TAB PO PRN ×4 (03:41→21:42)
[2019-11-13] MEDS: SOD CHL 0.9%/ KCL 20MEQ 1,000 ML IV SCH ×2 (03:42→13:13)
[2019-11-13 05:08] VITALS: BP 110/51
[2019-11-13] MEDS: FUROSEMIDE 20 MG TAB PO SCH ×2 (05:26→16:49)
[2019-11-13 08:57] VITALS: BP 105/43
[2019-11-13] MEDS: MILK OF MAGNESIA 30ML SUSP PO SCH ×2 (10:00→21:18)
[2019-11-13] MEDS: POTASSIUM CHL 20 Meq TABLET PO SCH ×3 (10:00→21:18)
[2019-11-13] MEDS: PANTOPRAZOLE 40 MG/10 ML VIAL INJ IV SCH (10:16)
[2019-11-13] MEDS: SODIUM CHLOR 0.9% PF (SALINE LOCK) 10ML VIAL/SYR IV SCH ×2 (10:16→21:21)
[2019-11-13] MEDS: ENOXAPARIN SOD 30 MG/0.3 ML SYRINGE SC SCH (10:17)
[2019-11-13 12:57] VITALS: BP 136/64
[2019-11-13 16:50] VITALS: BP 152/78
--- NOTE | 2019-11-13 18:54 | NUR ---
OPTIFOAM APPLIED TO SACRAL AREA DUE TO PRIOR SOILING WITH BM. AREA CLEANSED AND Z-GUARD APPLIED.
[2019-11-13] MEDS: diphenhdrAMINE HCL 50 MG/1 ML VL IV PRN (21:42)
[2019-11-13 22:22] VITALS: BP 109/58
[2019-11-14] MEDS: ONDANSETRON HCL 4 MG/2 ML VIAL IV PRN ×4 (04:11→22:06)
[2019-11-14] MEDS: HYDROcodone-ACET 10/325MG TAB PO PRN ×4 (04:20→22:05)
[2019-11-14 05:09] VITALS: BP 101/46
[2019-11-14] MEDS: FUROSEMIDE 20 MG TAB PO SCH ×2 (05:27→18:39)
[2019-11-14] MEDS: SOD CHL 0.9%/ KCL 20MEQ 1,000 ML IV SCH ×3 (06:14→18:49)
[2019-11-14 08:35] VITALS: BP 102/50
[2019-11-14] MEDS: MILK OF MAGNESIA 30ML SUSP PO SCH ×2 (10:00→20:13)
[2019-11-14] MEDS: HYDROCORTISONE 2.5% TOPICAL CREAM 30GM TUBE TOP SCH ×2 (10:00→20:13)
[2019-11-14] MEDS: SODIUM CHLOR 0.9% PF (SALINE LOCK) 10ML VIAL/SYR IV SCH ×2 (10:00→20:13)
[2019-11-14] MEDS: POTASSIUM CHL 20 Meq TABLET PO SCH ×2 (10:16→20:13)
[2019-11-14] MEDS: PANTOPRAZOLE 40 MG/10 ML VIAL INJ IV SCH (10:16)
[2019-11-14] MEDS: ENOXAPARIN SOD 30 MG/0.3 ML SYRINGE SC SCH (10:18)
[2019-11-14 12:45] VITALS: BP 106/58
[2019-11-14 17:00] VITALS: BP 108/53
[2019-11-14 22:00] VITALS: BP 108/55
[2019-11-14] MEDS: diphenhdrAMINE HCL 50 MG/1 ML VL IV PRN (22:07)
--- NOTE | 2019-11-14 22:10 | NUR ---
Patient is c/o abdominal and back pain 03/07, requested to have NOrco and Zofran together, administered as ordered. Will reassess.
--- NOTE | 2019-11-14 23:10 | NUR ---
Pain reassessment Patient is sleeping comfortably.
[2019-11-15] MEDS: ONDANSETRON HCL 4 MG/2 ML VIAL IV PRN ×4 (04:22→21:52)
[2019-11-15] MEDS: HYDROcodone-ACET 10/325MG TAB PO PRN ×4 (04:23→21:52)
[2019-11-15] MEDS: SOD CHL 0.9%/ KCL 20MEQ 1,000 ML IV SCH ×3 (04:25→23:19)
[2019-11-15 05:16] VITALS: BP 115/51
[2019-11-15] MEDS: FUROSEMIDE 20 MG TAB PO SCH ×2 (06:04→17:46)
[2019-11-15 09:00] VITALS: BP_SYST 115; BP_SYST 142; BP_DIAS 57; BP_DIAS 59
[2019-11-15] MEDS: HYDROCORTISONE 2.5% TOPICAL CREAM 30GM TUBE TOP SCH ×2 (10:00→21:31)
[2019-11-15] MEDS: MILK OF MAGNESIA 30ML SUSP PO SCH ×2 (10:00→21:31)
[2019-11-15] MEDS: POTASSIUM CHL 20 Meq TABLET PO SCH (10:21)
[2019-11-15] MEDS: PANTOPRAZOLE 40 MG/10 ML VIAL INJ IV SCH (10:23)
[2019-11-15] MEDS: ENOXAPARIN SOD 30 MG/0.3 ML SYRINGE SC SCH (10:23)
[2019-11-15] MEDS: SODIUM CHLOR 0.9% PF (SALINE LOCK) 10ML VIAL/SYR IV SCH ×2 (10:23→21:31)
[2019-11-15 13:00] VITALS: BP 118/69
[2019-11-15 13:55] LABS: Basophils # (auto) 0 10 ^3/uL (0-0.2); Monocytes # (auto) 0.6 10 ^3/uL (0-1.3); Neutrophils # (auto) 2.3 10 ^3/uL (1.6-8.6); White Blood Cell 4.4 10^3/uL (4.4-10.8)
[2019-11-15 13:57] LABS: Basophils % (auto) 0.8 % (0.0-2.0); Eosinophils # (auto) 0 10 ^3/uL (0-0.8); Eosinophils % (auto) 1.1 % (0.0-7.0); Hematocrit 34.7 % (36.0-46.0); Hemoglobin 11.2 g/dL (12.2-16.2); Lymphocytes # (auto) 1.4 10 ^3/uL (0.4-5.4); Lymphocytes % (auto) 32.3 % (10.0-50.0); Mean Corpuscular Hemoglobin 25.7 pg (28.0-32.0); Mean Corpuscular Hgb Conc. 32.3 g/dL (32.0-36.0); Mean Corpuscular Volume 79.3 fL (80.0-100.0); Neutrophils % (auto) 51.8 % (37.0-80.0); Nucleated Red Blood Cells % 0.1 %; Platelet Count (auto) 430 10^3/uL (140-450); Red Blood Cells 4.37 10^6/uL (4.0-5.20)
[2019-11-15 14:06] LABS: BUN/Creatinine Ratio 11.3; Calcium 8.9 mg/dL (8.5-10.1)
[2019-11-15 14:08] LABS: Red Cell Distribution Width 21.5 % (11.8-14.3)
--- NOTE | 2019-11-15 15:15 | NUR ---
Optifoam dressing changed as ordered patient's dressing came off as she was on the toilet per patient. Sacrum cleansed with soap and water, therahoney applied and new optifoam applied to site as ordered. Patient tolerated well. Will cont care
--- NOTE | 2019-11-15 16:00 | NUR ---
at bedside MD Zimmerman at bedside, aware of patient's status including abnormal labs, vs, incision site. New orders received to remove federico at this time. Patient states she does not like the potassium pills, new orders received for effervescent potassium. MD aware of patient's complaint of pain, per MD jacob trinidad as ordered. Patient is ambulating independently with stand by assist and states lbm was yesterday. Patient denies n/v/d. Per MD Zimmerman, possibly dc tomorrow. Will jacob garcia
[2019-11-15 17:00] VITALS: BP 96/47
--- NOTE | 2019-11-15 17:16 | NUR ---
Federico removed as ordered steri strips applied to mid abd after federico removed completely and fully intact. No dehiscence or evisceration noted. No signs of infection noted. Incision noted well approximated. Patient tolerated well. Medicated as ordered for pain. Will cont care
--- NOTE | 2019-11-15 19:00 | NUR ---
Patient care endorsed endorsed care to Molly luu. Patient resting comfortably in bed no acute distress or sob noted. Call light within reach. Incision site noted intact with steri strips in place.
[2019-11-15] MEDS: POTASSIUM EFFERVESENT TAB 25 MEQ PO SCH (21:31)
[2019-11-15] MEDS: diphenhdrAMINE HCL 50 MG/1 ML VL IV PRN (21:52)
--- NOTE | 2019-11-15 21:52 | NUR ---
PATIENT GIVEN NORCO AND ZOFRAN FOR ABDOMINAL PAIN OF 7/10 AND NAUSEA. WILL REASSESS
[2019-11-15 22:00] VITALS: BP 100/55
--- NOTE | 2019-11-15 22:22 | NUR ---
PATIENT IS RESTING COMFORTABLY.
[2019-11-16] MEDS: HYDROcodone-ACET 10/325MG TAB PO PRN ×4 (05:09→21:23)
[2019-11-16] MEDS: ONDANSETRON HCL 4 MG/2 ML VIAL IV PRN ×4 (05:09→21:23)
[2019-11-16] MEDS: FUROSEMIDE 20 MG TAB PO SCH ×2 (05:10→18:27)
[2019-11-16] MEDS: SOD CHL 0.9%/ KCL 20MEQ 1,000 ML IV SCH ×2 (05:10→14:47)
[2019-11-16 05:50] VITALS: BP 111/56
--- NOTE | 2019-11-16 08:00 | NUR ---
Morning note Patient resting in bed with even and unlabored respirations, no distress noted. Instructed patient on POC, fall precautions and to call for assistance as needed. Patient verbalized understanding. Fall precautions in place with call light within reach. Patient able to turn self independently in bed.
[2019-11-16 08:54] VITALS: BP 117/61
[2019-11-16] MEDS: POTASSIUM EFFERVESENT TAB 25 MEQ PO SCH ×3 (09:19→21:57)
[2019-11-16] MEDS: ENOXAPARIN SOD 30 MG/0.3 ML SYRINGE SC SCH (09:19)
[2019-11-16] MEDS: SODIUM CHLOR 0.9% PF (SALINE LOCK) 10ML VIAL/SYR IV SCH ×2 (09:20→21:23)
--- NOTE | 2019-11-16 09:24 | NUR ---
Patient refused scheduled medications Patient refused M.O.M.. Patient stated "I'm having bowel movements and they are already loose. I don't want that." Patient refused Hydrocortisone cream. Patient stated "They were putting it on between my legs because I had a little rash there but it's gone now. I don't need it."
--- NOTE | 2019-11-16 09:25 | NUR ---
Patient ambulating with physical therapy FWW as assistive device. Gait is steady. Respirations even and unlabored, no distress noted.
[2019-11-16] MEDS: HYDROCORTISONE 2.5% TOPICAL CREAM 30GM TUBE TOP SCH ×2 (09:26→21:56)
[2019-11-16] MEDS: MILK OF MAGNESIA 30ML SUSP PO SCH ×2 (09:26→21:56)
[2019-11-16] MEDS: PANTOPRAZOLE 40 MG/10 ML VIAL INJ IV SCH (09:40)
--- NOTE | 2019-11-16 10:17 | NUR ---
WOUND CARE NOTE: Wound care in to see patient for reevaluation of coccyx wound and skin integrity monitoring. Patient continue resting on air mattress in Rm. 285B. Patient is awake, alert and oriented. Patient is in no stated pain at this time. Patient is self turning and repositioning. Her Jaden score is 18. Patient's coccyx pressure injury continue to improve. Wound measuring 0.5x0.5cm with red wound bed, pink angie wound no drainage/odor noted. Rt lower buttock display intact pink scar tissue. Cleansed coccyx wound with wound cleanser moistened gauze, patted dry, applied Thera honey gel to open wound bed and covered coccyx wound with Opti foam gentle dressing. New photograph of wound are taken for reference. Patient tolerated well, repositioned for comfort facing her Rt. side,redistributed pressure points with pillows. Bed in low position, call betancourt on hand, all safety precautions in placed. RECOMMENDATION: Continuation of all other wound care orders prescribed by MD, continue with skin/wound plan of care, continue monitoring by wound care while patient is hospitalized. Addendum: 11/16/19 at 1540 by Belinda Carlson RN Amended: Links added.
[2019-11-16 12:50] VITALS: BP 104/49
--- NOTE | 2019-11-16 13:35 | NUR ---
Discussed POC with Dr. Zimmerman. verbalized understanding.
[2019-11-16 17:03] VITALS: BP 116/66
--- NOTE | 2019-11-16 18:51 | NUR ---
Closing note Patient resting in bed with even and unlabored respirations, no distress noted. Fall precautions in place with call light within reach.
--- NOTE | 2019-11-16 19:15 | NUR ---
Care endorsed RAFFY Barnes.
[2019-11-16] MEDS: diphenhdrAMINE HCL 50 MG/1 ML VL IV PRN (21:23)
[2019-11-16 22:00] VITALS: BP 100/57
[2019-11-16 22:26] VITALS: BP 109/51
[2019-11-17 05:00] VITALS: BP 119/59
[2019-11-17] MEDS: FUROSEMIDE 20 MG TAB PO SCH ×2 (06:02→16:58)
[2019-11-17] MEDS: ONDANSETRON HCL 4 MG/2 ML VIAL IV PRN ×4 (06:02→21:30)
[2019-11-17] MEDS: HYDROcodone-ACET 10/325MG TAB PO PRN ×4 (06:03→21:26)
[2019-11-17] MEDS: SOD CHL 0.9%/ KCL 20MEQ 1,000 ML IV SCH ×2 (06:04→17:00)
[2019-11-17 08:35] VITALS: BP 105/60
[2019-11-17] MEDS: PANTOPRAZOLE 40 MG/10 ML VIAL INJ IV SCH (08:36)
[2019-11-17] MEDS: POTASSIUM EFFERVESENT TAB 25 MEQ PO SCH ×2 (08:37→22:00)
[2019-11-17] MEDS: ENOXAPARIN SOD 30 MG/0.3 ML SYRINGE SC SCH (08:37)
[2019-11-17] MEDS: MILK OF MAGNESIA 30ML SUSP PO SCH ×2 (08:38→21:25)
[2019-11-17] MEDS: HYDROCORTISONE 2.5% TOPICAL CREAM 30GM TUBE TOP SCH ×2 (08:38→22:00)
[2019-11-17] MEDS: SODIUM CHLOR 0.9% PF (SALINE LOCK) 10ML VIAL/SYR IV SCH ×2 (08:38→23:18)
--- NOTE | 2019-11-17 09:13 | NUR ---
MD was at bedside - Dr. Vidal Informed MD of patient's constant nausea that is relieved for approximately 1-1/2 hours after administration of IV PRN anti-nausea medication. MD verbalized understanding.
[2019-11-17] MEDS ORDERED: IOHEXOL 300 MG/ML 100ML BOTTLE IJ ONE (09:22)
--- NOTE | 2019-11-17 09:36 | NUR ---
Patient off unit to radiology via wheelchair Respirations even and unlabored, no distress noted. patient reports nausea. Emesis bag provided.
--- NOTE | 2019-11-17 09:44 | NUR ---
Patient returned to unit via wheelchair Respirations even and unlabored, no distress noted.
[2019-11-17 10:30] LABS: Albumin 2.4 g/dL (3.4-5.0); Calcium 8.4 mg/dL (8.5-10.1); Potassium 3.6 mmol/L (3.5-5.1)
[2019-11-17 10:33] LABS: BUN/Creatinine Ratio 12.7; Bilirubin, Total 0.2 mg/dL (0.2-1.0); Total Protein 6.9 g/dL (6.4-8.2)
[2019-11-17] MEDS: METOCLOPRAMIDE HCL 10 MG TAB PO SCH ×3 (11:15→21:26)
--- NOTE | 2019-11-17 12:27 | NUR ---
Patient refusing lunch meal d/t severe nausea Patient has been medicated per MD order. MD aware of patient's report of nausea. Patient reporting pain "all over". Patient has been medicated per MD order. Heat pack provided for comfort. Respirations even and unlabored, no distress noted. Call light within reach.
--- NOTE | 2019-11-17 12:42 | NUR ---
MD was at bedside - Dr. Zimmerman POC discussed with . Informed MD of that patient has continued nausea despite the administration of PRN anti-nausea medications. MD verbalized understanding.
[2019-11-17 13:00] VITALS: BP 104/61
[2019-11-17 17:03] VITALS: BP 101/53
--- NOTE | 2019-11-17 17:42 | NUR ---
Patient refusing dinner meal d/t severe nausea Patient has been medicated per MD order. MD aware of patient's report of nausea. Patient stated "I'm trying to drink the ensure shake."
[2019-11-17] MEDS: Ensure Enlive Strawberry 8oz Bottle PO SCH (18:00)
--- NOTE | 2019-11-17 19:00 | NUR ---
opening note PATIENT RESTING IN BED, UNLABORED BREATHING, C/O CHRONIC NAUSEA, DENIES EMESIS. POC EXPLAINED TO PATIENT. CALL LIGHT WITH IN REACH, BED ON LOWEST POSITION, CALL LIGHT WITH IN REACH.
--- NOTE | 2019-11-17 19:24 | NUR ---
Care endorsed to RAFFY Bond.
--- NOTE | 2019-11-17 21:00 | NUR ---
MEDICATION GIVEN TO PATIENT FOR NAUSEA AND PAIN.
[2019-11-17] MEDS: diphenhdrAMINE HCL 50 MG/1 ML VL IV PRN (21:30)
[2019-11-17 21:31] VITALS: BP 120/58
--- NOTE | 2019-11-18 | NUR ---
PATIENT RESTING IN BED, DENIES EMESIS, STILL C/O NAUSEA, REFUSED ANYTHING TO EAT.
--- NOTE | 2019-11-18 01:30 | NUR ---
PATIENT RESTING, UNLABORED BREATHING.
[2019-11-18] MEDS: SOD CHL 0.9%/ KCL 20MEQ 1,000 ML IV SCH ×3 (02:28→22:04)
[2019-11-18] MEDS: HYDROcodone-ACET 10/325MG TAB PO PRN ×4 (02:28→21:50)
--- NOTE | 2019-11-18 04:30 | NUR ---
PATIENT AWAKE, DENIES DISCOMFORT.
[2019-11-18 05:11] VITALS: BP 113/50
[2019-11-18] MEDS: ONDANSETRON HCL 4 MG/2 ML VIAL IV PRN ×4 (05:12→21:51)
[2019-11-18] MEDS: METOCLOPRAMIDE HCL 10 MG TAB PO SCH ×4 (05:13→21:51)
[2019-11-18] MEDS: FUROSEMIDE 20 MG TAB PO SCH ×2 (05:13→17:27)
[2019-11-18 06:47] LABS: Hemoglobin 10.1 g/dL (12.2-16.2); White Blood Cell 3.8 10^3/uL (4.4-10.8)
[2019-11-18 06:49] LABS: Hematocrit 31.3 % (36.0-46.0); Mean Corpuscular Hemoglobin 25.2 pg (28.0-32.0); Mean Corpuscular Hgb Conc. 32.2 g/dL (32.0-36.0); Mean Corpuscular Volume 78.2 fL (80.0-100.0); Platelet Count (auto) 416 10^3/uL (140-450)
[2019-11-18 06:55] LABS: Red Cell Distribution Width 20.9 % (11.8-14.3)
[2019-11-18 06:56] LABS: Band Neutrophils % (manual) 0; Basophils % (manual) 0 (0.0-2.0); Blast Cells 0; Metamyelocytes % 0; Myelocytes % 0; Promyelocytes % 0; Reactive Lymphocytes 0
[2019-11-18 07:19] LABS: Eosinophils % (manual) 1 (0-7); Lymphocytes % (manual) 42 (10.0-50.0); Monocytes % (manual) 16 (0-12)
[2019-11-18 09:00] VITALS: BP 106/50
[2019-11-18] MEDS: SODIUM CHLOR 0.9% PF (SALINE LOCK) 10ML VIAL/SYR IV SCH ×2 (09:49→21:49)
[2019-11-18] MEDS: PANTOPRAZOLE 40 MG/10 ML VIAL INJ IV SCH (09:49)
[2019-11-18] MEDS: Ensure Enlive Strawberry 8oz Bottle PO SCH ×3 (09:49→17:26)
[2019-11-18] MEDS: POTASSIUM EFFERVESENT TAB 25 MEQ PO SCH ×2 (09:49→21:49)
[2019-11-18] MEDS: ENOXAPARIN SOD 30 MG/0.3 ML SYRINGE SC SCH (09:50)
[2019-11-18] MEDS: MILK OF MAGNESIA 30ML SUSP PO SCH ×3 (09:55→22:00)
[2019-11-18] MEDS: HYDROCORTISONE 2.5% TOPICAL CREAM 30GM TUBE TOP SCH ×3 (10:00→22:04)
--- NOTE | 2019-11-18 11:30 | NUR ---
Dr. Zimmerman at bedside with patient to discuss plan of care
[2019-11-18 12:21] VITALS: BP 110/76
--- NOTE | 2019-11-18 15:21 | NUR ---
Nutrition Followup Notes Wt: 72.5 kg Pt remains on Regular diet with very poor PO intake aeb ave 20% x3 meals over 3 days per accounts receivable clerk. Pt is still with nausea, made certain food requests in an attempt to eat more of the meals she is given. Conveyed the request to phlebotomy support tech. Pt also requested Ensure nutrition shake be discontinued d/t it causes her nausea. Will continue to monitor NPO status, skin status, pertinent labs and weight trends. Will f/u in 3 to 5 days. Est. energy needs: 9546-6225 kcals (23-25 kcal/kgBW) Est. protein needs: 80-101 gms/day (1.2-1.5 gm/kgBW) Labs 11/17: Na 133 L, Cl 96 L, Ca 8.4 L, Alb 2.4 L, GI: Last Bm noted on 11/17/19 per RN doc. Jaden Scale: 18, mod risk, please refer to wound assessment report for full details PES: 1) Altered GI function r/t gastric bypass, intestinal resection aeb chronic diarrhea-(partially resolved) 2) Altered nutrition related lab values r/t current/chronic medical condition aeb hyperchloremia, hyperglycemia, severe hypoalbuminemia Recommendations: 1) Provide Ensure Enlive TID as nutrition supplement. 2) Continue to closely monitor pt PO intake and provide 1:1 feeding assistance as needed. 3) Continue current plan of care.
[2019-11-18 17:00] VITALS: BP 127/71
--- NOTE | 2019-11-18 17:27 | NUR ---
Provided wound care to patients sacral area.
--- NOTE | 2019-11-18 19:24 | NUR ---
Opening Shift Note Assumed care of patient, awake and alert x 4. No S/S of distress/SOB. Bed is in lowest position and locked. Call light within reach. Board updated. Tele box number matches monitor and leads are in correct placement. Instructed on POC and to call for assist PRN, will continue to monitor for changes Q1hr and PRN.
[2019-11-18 21:52] VITALS: BP 104/48
--- NOTE | 2019-11-18 21:55 | NUR ---
Patient refused potassium effervescent 25 mEq tab because she "doesn't take it during the nights. It makes me sick." Patient made aware of what medication is prescribed for and that patient may become hypokalemic if she does not take it. Patient acknowledged but does not want medication.
[2019-11-18] MEDS: diphenhdrAMINE HCL 50 MG/1 ML VL IV PRN (22:04)
--- NOTE | 2019-11-18 22:20 | NUR ---
Patient refused Milk of Magnesia and Hydrocortisone cream. Rash to bilateral inner thighs has completely disappeared and patient does not want cream placed over afflicted area. Patient also wished to refuse Milk of Magnesia because she is having regular BMs.
[2019-11-19] MEDS: HYDROcodone-ACET 10/325MG TAB PO PRN ×3 (02:05→11:16)
[2019-11-19] MEDS: ONDANSETRON HCL 4 MG/2 ML VIAL IV PRN ×5 (02:05→21:35)
--- NOTE | 2019-11-19 05:51 | NUR ---
Spoke to pediatric social worker from [facility], Ashley Carlos, after confirming password. She requested MD Malin be notified that patient will be receiving chemotherapy at [facility] when he is ready to discharge her, should she agree to treatment. Will endorse to day shift RN.
[2019-11-19 05:57] VITALS: BP 103/47
[2019-11-19] MEDS: FUROSEMIDE 20 MG TAB PO SCH ×2 (06:27→17:22)
[2019-11-19] MEDS: METOCLOPRAMIDE HCL 10 MG TAB PO SCH ×4 (06:27→21:35)
--- NOTE | 2019-11-19 07:50 | NUR ---
Opening Shift Note Assumed care of patient, pt sitting in bed A&Ox4. No S/S of distress or SOB noted. Denies any pain, dizziness at the moment. Instructed on POC and to call for assistance as needed, call light within reach. Safety measures in place, bed set to lowest locked position x2 rails up. Will continue to monitor for changes Q1hr and PRN.
[2019-11-19] MEDS: Ensure Enlive Strawberry 8oz Bottle PO SCH ×3 (08:00→18:00)
--- NOTE | 2019-11-19 08:20 | NUR ---
Patient refused Ensure drink Patient states "It makes me more nauseated. I tried to drink it but I just can't do it."
--- NOTE | 2019-11-19 08:21 | NUR ---
Patient tolerated breakfast meal Patient able to consume 75% of breakfast meal. Patient reports continued nausea. Patient denies vomiting.
[2019-11-19] MEDS: SOD CHL 0.9%/ KCL 20MEQ 1,000 ML IV SCH ×2 (08:45→14:21)
[2019-11-19 08:57] VITALS: BP 118/62
[2019-11-19] MEDS: PANTOPRAZOLE 40 MG/10 ML VIAL INJ IV SCH (09:43)
[2019-11-19] MEDS: SODIUM CHLOR 0.9% PF (SALINE LOCK) 10ML VIAL/SYR IV SCH ×2 (09:43→21:35)
[2019-11-19] MEDS: ENOXAPARIN SOD 30 MG/0.3 ML SYRINGE SC SCH (09:44)
[2019-11-19] MEDS: POTASSIUM EFFERVESENT TAB 25 MEQ PO SCH ×2 (09:44→21:35)
[2019-11-19] MEDS: MILK OF MAGNESIA 30ML SUSP PO SCH ×2 (09:48→21:35)
[2019-11-19] MEDS: HYDROCORTISONE 2.5% TOPICAL CREAM 30GM TUBE TOP SCH ×2 (10:00→21:35)
--- NOTE | 2019-11-19 12:30 | NUR ---
Patient refused lunch meal tray d/t nausea Encouraged PO intake. Patient stated "I'm too nauseated."
[2019-11-19 13:00] VITALS: BP 106/61
--- NOTE | 2019-11-19 13:45 | NUR ---
Pt refused Medication. Addendum: 11/19/19 at 1346 by DEBORAH HOOVER RN RN Amended: Links added.
--- NOTE | 2019-11-19 13:47 | NUR ---
Informed patient, pain medication is not due a this time will provide pain medication once its available. Will continue to monitor pain. Addendum: 11/19/19 at 1349 by DEBORAH HOOVER RN RN Amended: Links added.
--- NOTE | 2019-11-19 15:45 | NUR ---
Patient reported vomiting Approximately 250ml of green bile noted in emesis basin. Patient reports severe nausea. Patient medicated with PRN anti-nausea medication per MD order.
--- NOTE | 2019-11-19 16:07 | NUR ---
Pathology report fax[facility] report be faxed to [phone] and [phone]. Facility needs report for patient to be placed in medical facility. Mrs. Viramontes's contact number is [phone].
[2019-11-19 17:00] VITALS: BP 123/64
--- NOTE | 2019-11-19 17:00 | NUR ---
RE: pain Notified Dr. Zimmerman of patient's episode of emesis and pain. This RN not able to administer PRN PO pain medication due to vomiting. MD verbalized understanding. Order received and read back to verify.
[2019-11-19] MEDS: MORPHINE SULF INJ 2 MG/ML SYRINGE 1ML IV PRN ×2 (17:17→23:14)
--- NOTE | 2019-11-19 17:23 | NUR ---
Patient refused PO scheduled medications d/t nausea Patient stated "I'm too nauseated. I won't keep it down." Patient has mouth in emesis bag. Respirations even and unlabored, no distress noted. Call light within reach.
--- NOTE | 2019-11-19 17:40 | NUR ---
Patient refused dinner meal tray d/t nausea Encouraged PO intake. Patient stated "I just can't. I'm too nauseated."
--- NOTE | 2019-11-19 18:41 | NUR ---
Closing note Patient resting in bed with even and unlabored respirations, no distress noted. Patient reports nausea, despite PRN anti-nausea medication being administered. BSC at bedside. Incision to the abdomen is clean, dry and well approximated with steri-stripes in place. Dressing to the sacrum is in place per MD order. Patient is on speciality air mattress per MD order. Fall precautions in place with call light within reach.
--- NOTE | 2019-11-19 19:11 | NUR ---
Care endorsed to RAFFY Shrestha.
--- NOTE | 2019-11-19 19:28 | NUR ---
Opening Shift Note Assumed care of patient, awake and alert x 4. No S/S of distress/SOB. Bed is in lowest position and locked. Call light within reach. Board updated. NS with 20 mEq of KCL infusing at 100 mls/hr. Instructed on POC and to call for assist PRN, will continue to monitor for changes Q1hr and PRN.
[2019-11-19] MEDS: diphenhdrAMINE HCL 50 MG/1 ML VL IV PRN (21:36)
[2019-11-19 22:05] VITALS: BP 133/68
--- NOTE | 2019-11-19 22:08 | NUR ---
Patient refused all PO medications scheduled including Milk of Magnesia, Reglan, Lipitor, and Potassium Effervescent because "I can't keep anything down right now. I'll throw it up." Hydrocortisone cream also held because patient does not have rash anymore. Will continue to assess.
[2019-11-20] VITALS (7 sets, daily range): BP systolic 97–116; BP diastolic 41–61
[2019-11-20] MEDS: SOD CHL 0.9%/ KCL 20MEQ 1,000 ML IV SCH ×2 (04:54→11:23)
[2019-11-20] MEDS: METOCLOPRAMIDE HCL 10 MG TAB PO SCH ×4 (05:43→23:17)
[2019-11-20] MEDS: FUROSEMIDE 20 MG TAB PO SCH ×2 (05:43→18:00)
[2019-11-20] MEDS: ONDANSETRON HCL 4 MG/2 ML VIAL IV PRN ×4 (05:44→22:11)
[2019-11-20] MEDS: HYDROcodone-ACET 10/325MG TAB PO PRN ×4 (05:45→22:11)
--- NOTE | 2019-11-20 05:52 | NUR ---
Patient once again refused PO medications Reglan and Lasix because she is too nauseas. Patient just vomited green bilious vomitus. I explained what each medication does and why it was prescribed. Patient still wished to decline medications.
--- NOTE | 2019-11-20 07:30 | NUR ---
Opening Shift Note Assumed care of patient, awake and alert. No S/S of distress/SOB or pain. Instructed on POC and to call for assist PRN, will continue to monitor for changes Q1hr and PRN. Bed locked in lowest position with two side rails up and call light in reach.
[2019-11-20] MEDS: Ensure Enlive Strawberry 8oz Bottle PO SCH ×3 (08:00→17:58)
[2019-11-20] MEDS: PANTOPRAZOLE 40 MG/10 ML VIAL INJ IV SCH (09:26)
[2019-11-20] MEDS: ENOXAPARIN SOD 30 MG/0.3 ML SYRINGE SC SCH (09:26)
--- NOTE | 2019-11-20 09:28 | NUR ---
WOUND CARE DRESSING CHANGED, CLEANED AND NEW DRESSING PLACED. PATIENT TOLERATED WELL.
[2019-11-20] MEDS: SODIUM CHLOR 0.9% PF (SALINE LOCK) 10ML VIAL/SYR IV SCH ×2 (09:31→22:16)
[2019-11-20] MEDS: HYDROCORTISONE 2.5% TOPICAL CREAM 30GM TUBE TOP SCH ×2 (09:31→22:00)
[2019-11-20] MEDS: POTASSIUM EFFERVESENT TAB 25 MEQ PO SCH ×2 (09:31→22:00)
[2019-11-20] MEDS: MILK OF MAGNESIA 30ML SUSP PO SCH ×2 (09:31→22:00)
--- NOTE | 2019-11-20 09:34 | NUR ---
PATIENT REFUSING MEDICATIONS STATES SHE CANNOT KEEP ANYTHING DOWN AND WILL THROW THEM UP. WILL NOTIFY DOCTOR.
--- NOTE | 2019-11-20 09:48 | NUR ---
PT Patient pleasantly refused to be OOB or ambulate during visit with c/o vomiting and nausea. Addendum: 11/20/19 at 0949 by KAREN ALDRIDGE PTT Amended: Links added.
--- NOTE | 2019-11-20 12:45 | NUR ---
NOTIFIED DR STYLES OF PATIENTS REFUSAL TO TAKE MEDICATIONS. NO NEW ORDERS RECEIVED.
--- NOTE | 2019-11-20 13:57 | NUR ---
PT Patient still has c/o nausea and vomiting during afternoon PT visit and pleasantly requested to do PT tomorrow. Addendum: 11/20/19 at 1358 by KAREN ALDRIDGE PTT Amended: Links added.
--- NOTE | 2019-11-20 19:40 | NUR ---
Opening Shift Note Assumed care of patient, awake and alert. No S/S of distress/SOB or pain. Noted abdominal incision dry and intact with steri strips on. Instructed on POC and to call for assist PRN, patient verbalized understanding, call light within reach, will continue to monitor for changes Q1hr and PRN.
--- NOTE | 2019-11-20 21:45 | NUR ---
Patient refused to take some of her scheduled meds. Per patient, she will throw up
[2019-11-20] MEDS: MEGESTROL ACET 400MG/10ML ORAL SUSP PO SCH (22:00)
[2019-11-20] MEDS: diphenhdrAMINE HCL 50 MG/1 ML VL IV PRN (22:11)
[2019-11-21] MEDS: SOD CHL 0.9%/ KCL 20MEQ 1,000 ML IV SCH ×2 (01:29→20:45)
[2019-11-21] MEDS: ONDANSETRON HCL 4 MG/2 ML VIAL IV PRN ×4 (02:36→22:44)
[2019-11-21] MEDS: HYDROcodone-ACET 10/325MG TAB PO PRN ×4 (02:36→22:43)
[2019-11-21 05:00] VITALS: BP 112/50
[2019-11-21] MEDS: FUROSEMIDE 20 MG TAB PO SCH ×2 (05:49→18:07)
[2019-11-21] MEDS: METOCLOPRAMIDE HCL 10 MG TAB PO SCH ×4 (05:49→22:43)
--- NOTE | 2019-11-21 08:15 | NUR ---
OPENING SHIFT NOTE: PATIENT RESTING IN BED ASLEEP. EASILY AWOKEN. RESPIRATIONS EVEN AND UNLABORED. A/OX4. ABDOMINAL BINDER INCISIONS CDI, PATIENT REPORTED HAVING SEVERE PAIN DURING THE NIGHT IN THE RLQ. PATIENT ALSO REPORTS HAVING NAUSEA DURING THE NIGHT. UPDATED ON PLAN OF CARE PATIENT VERBALIZED UNDERSTANDING. THIS RN ASSISTED WITH PATIENT TO BEDSIDE COMMODE. NO BM, VOIDED. PATIENT ABLE TO GET BACK IN BED SAFELY, CALL LIGHT WITHIN REACH,WILL CONTINUE TO MONITOR.
[2019-11-21 08:55] VITALS: BP 111/60
[2019-11-21] MEDS: MEGESTROL ACET 400MG/10ML ORAL SUSP PO SCH ×2 (09:19→22:00)
[2019-11-21] MEDS: Ensure Enlive Strawberry 8oz Bottle PO SCH ×3 (09:19→18:00)
[2019-11-21] MEDS: POTASSIUM EFFERVESENT TAB 25 MEQ PO SCH ×2 (09:19→22:00)
[2019-11-21] MEDS: MILK OF MAGNESIA 30ML SUSP PO SCH ×2 (09:19→22:00)
[2019-11-21] MEDS: PANTOPRAZOLE 40 MG/10 ML VIAL INJ IV SCH (09:19)
[2019-11-21] MEDS: SODIUM CHLOR 0.9% PF (SALINE LOCK) 10ML VIAL/SYR IV SCH ×2 (09:19→22:43)
[2019-11-21] MEDS: ENOXAPARIN SOD 30 MG/0.3 ML SYRINGE SC SCH (09:20)
[2019-11-21] MEDS: HYDROCORTISONE 2.5% TOPICAL CREAM 30GM TUBE TOP SCH ×2 (09:20→22:00)
[2019-11-21 12:28] VITALS: BP 117/68
[2019-11-21 17:00] VITALS: BP 103/49
--- NOTE | 2019-11-21 18:56 | NUR ---
CARE ENDORSED TO ISABEL AKBAR.
[2019-11-21 20:00] VITALS: BP 109/66
--- NOTE | 2019-11-21 20:00 | NUR ---
PT AWAKENS EASILY;DENIES PAIN'DR STYLES IN TO SEE PT;WILL CONTINUE TO MONITOR.
[2019-11-21 22:00] VITALS: BP 104/43
[2019-11-21] MEDS: diphenhdrAMINE HCL 50 MG/1 ML VL IV PRN (22:44)
[2019-11-22 05:00] VITALS: BP 119/59
[2019-11-22] MEDS: SOD CHL 0.9%/ KCL 20MEQ 1,000 ML IV SCH ×3 (06:07→22:30)
[2019-11-22] MEDS: HYDROcodone-ACET 10/325MG TAB PO PRN ×4 (06:08→22:23)
[2019-11-22] MEDS: METOCLOPRAMIDE HCL 10 MG TAB PO SCH ×4 (06:08→22:22)
[2019-11-22] MEDS: FUROSEMIDE 20 MG TAB PO SCH ×2 (06:11→18:00)
--- NOTE | 2019-11-22 07:36 | NUR ---
CARE ENDORSED TO ROSAMARIA AKBAR.
--- NOTE | 2019-11-22 07:46 | NUR ---
OPENING SHIFT NOTE: PATIENT RESTING IN BED ASLEEP. EASILY AWOKEN. RESPIRATIONS EVEN AND UNLABORED. A/OX4. ABDOMINAL INCISIONS CDI. UPDATED ON PLAN OF CARE PATIENT VERBALIZED UNDERSTANDING. CALL LIGHT WITHIN REACH,WILL CONTINUE TO MONITOR.
[2019-11-22] MEDS: Ensure Enlive Strawberry 8oz Bottle PO SCH ×3 (08:00→17:20)
[2019-11-22 09:00] VITALS: BP 110/57
[2019-11-22] MEDS: MILK OF MAGNESIA 30ML SUSP PO SCH ×2 (10:00→22:00)
[2019-11-22] MEDS: POTASSIUM EFFERVESENT TAB 25 MEQ PO SCH ×2 (10:00→22:30)
[2019-11-22] MEDS: HYDROCORTISONE 2.5% TOPICAL CREAM 30GM TUBE TOP SCH ×2 (10:00→22:00)
--- NOTE | 2019-11-22 10:06 | NUR ---
WOUND CARE: SACRAL OPTIFOAM CHANGED AND WOUND CARE PERFORMED ORDERED.
[2019-11-22] MEDS: SODIUM CHLOR 0.9% PF (SALINE LOCK) 10ML VIAL/SYR IV SCH ×2 (10:33→22:23)
[2019-11-22] MEDS: PANTOPRAZOLE 40 MG/10 ML VIAL INJ IV SCH (10:33)
[2019-11-22] MEDS: MEGESTROL ACET 400MG/10ML ORAL SUSP PO SCH ×2 (10:34→22:21)
[2019-11-22] MEDS: ONDANSETRON HCL 4 MG/2 ML VIAL IV PRN ×2 (10:34→22:21)
[2019-11-22] MEDS: ENOXAPARIN SOD 30 MG/0.3 ML SYRINGE SC SCH (10:34)
--- NOTE | 2019-11-22 12:24 | NUR ---
LUNCH: THIS RN FAXED FOOD REQUEST FORM TO DIETARY FOR PATIENT REQUEST FOR A SANDWICH, ORANGES, AND CAMOMILE TEA. LUNCH RECEIVED AND PATIENT STATES, "THANK YOU SO MUCH, I FINALLY FEEL LIKE I CAN EAT SOMETHING."
[2019-11-22 13:00] VITALS: BP 114/68
[2019-11-22 16:54] VITALS: BP 110/61
--- NOTE | 2019-11-22 19:31 | NUR ---
CARE ENDORSED TO OMID AKBAR.
--- NOTE | 2019-11-22 19:45 | NUR ---
Opening Shift Note Assumed care of patient, awake and alert oriented x4. No S/S of distress/SOB noted. Bed is in lowest locked position with bed rails up x2 and call light is within reach of the patient. Instructed on POC and to call for assist PRN.
[2019-11-22 22:00] VITALS: BP 115/65
[2019-11-22] MEDS: diphenhdrAMINE HCL 50 MG/1 ML VL IV PRN (22:20)
--- NOTE | 2019-11-22 23:15 | NUR ---
PICC line dressing changed: Picc line dressing changed using sterile technique. Patient tolerated well. No s/s of distress sob noted.
[2019-11-23] MEDS: HYDROcodone-ACET 10/325MG TAB PO PRN ×5 (02:58→22:36)
[2019-11-23] MEDS: ONDANSETRON HCL 4 MG/2 ML VIAL IV PRN ×5 (02:59→22:37)
[2019-11-23 05:00] VITALS: BP 105/66
[2019-11-23] MEDS: FUROSEMIDE 20 MG TAB PO SCH ×2 (06:26→17:53)
[2019-11-23] MEDS: METOCLOPRAMIDE HCL 10 MG TAB PO SCH ×4 (06:26→22:36)
[2019-11-23] MEDS: Ensure Enlive Strawberry 8oz Bottle PO SCH ×3 (08:00→17:52)
[2019-11-23 09:00] VITALS: BP 93/45
[2019-11-23] MEDS: POTASSIUM EFFERVESENT TAB 25 MEQ PO SCH ×2 (10:00→22:00)
[2019-11-23] MEDS: MILK OF MAGNESIA 30ML SUSP PO SCH ×2 (10:00→22:00)
[2019-11-23] MEDS: SODIUM CHLOR 0.9% PF (SALINE LOCK) 10ML VIAL/SYR IV SCH ×2 (10:02→22:34)
[2019-11-23] MEDS: PANTOPRAZOLE 40 MG/10 ML VIAL INJ IV SCH (10:02)
[2019-11-23] MEDS: MEGESTROL ACET 400MG/10ML ORAL SUSP PO SCH ×2 (10:02→22:35)
[2019-11-23] MEDS: HYDROCORTISONE 2.5% TOPICAL CREAM 30GM TUBE TOP SCH ×2 (10:03→22:00)
[2019-11-23] MEDS: ENOXAPARIN SOD 30 MG/0.3 ML SYRINGE SC SCH (10:03)
--- NOTE | 2019-11-23 11:00 | NUR ---
WOUND CARE NOTE: WOUND CARE TEAM IN TO REASSESS PATIENT'S WOUND TO COCCYX. PATIENT HAS RESOLVING PARTIAL THICKNESS PRESSURE ULCER TO COCCYX. PREVIOUS DRESSING REMOVED. NEW PHOTOGRAPH TAKEN FOR REFERENCE AT THIS TIME. APPLIED OPTIFOAM GENTLE SACRAL DRESSING. PATIENT ON SPECIALTY AIR MATTRESS. RECOMMEND: CONTINUATION WITH ALL WOUND CARE ORDERS PREVIOUSLY PRESCRIBED BY . SIDE TO SIDE POSITIONING TOLERATED. CONTINUE WITH SKIN/WOUND CARE PLAN. CONTINUED MONITORING BY WOUND CARE TEAM. Addendum: 11/23/19 at 1543 by TUAN STEVENS RN RN Amended: Links added.
[2019-11-23] MEDS: SOD CHL 0.9%/ KCL 20MEQ 1,000 ML IV SCH ×2 (12:04→22:38)
[2019-11-23 12:30] VITALS: BP 116/59
[2019-11-23 17:17] VITALS: BP 96/69
[2019-11-23 22:00] VITALS: BP 103/49
[2019-11-23] MEDS: diphenhdrAMINE HCL 50 MG/1 ML VL IV PRN (22:37)
--- NOTE | 2019-11-24 00:10 | NUR ---
Radha Umana at the bedside.
[2019-11-24] MEDS: HYDROcodone-ACET 10/325MG TAB PO PRN ×5 (02:37→22:18)
[2019-11-24] MEDS: ONDANSETRON HCL 4 MG/2 ML VIAL IV PRN ×5 (02:37→22:18)
[2019-11-24 05:06] VITALS: BP 100/51
[2019-11-24 06:23] VITALS: BP 113/56
[2019-11-24] MEDS: FUROSEMIDE 20 MG TAB PO SCH ×2 (06:39→17:01)
[2019-11-24] MEDS: METOCLOPRAMIDE HCL 10 MG TAB PO SCH ×4 (06:41→22:20)
[2019-11-24] MEDS: Ensure Enlive Strawberry 8oz Bottle PO SCH ×3 (08:00→17:01)
[2019-11-24 09:00] VITALS: BP 97/59
[2019-11-24] MEDS: SOD CHL 0.9%/ KCL 20MEQ 1,000 ML IV SCH ×2 (09:00→18:15)
[2019-11-24] MEDS: MILK OF MAGNESIA 30ML SUSP PO SCH ×2 (10:00→22:00)
[2019-11-24] MEDS: HYDROCORTISONE 2.5% TOPICAL CREAM 30GM TUBE TOP SCH ×2 (10:00→22:00)
[2019-11-24] MEDS: POTASSIUM EFFERVESENT TAB 25 MEQ PO SCH ×2 (10:00→22:00)
[2019-11-24] MEDS: PANTOPRAZOLE 40 MG/10 ML VIAL INJ IV SCH (10:07)
[2019-11-24] MEDS: MEGESTROL ACET 400MG/10ML ORAL SUSP PO SCH ×2 (10:07→22:25)
[2019-11-24] MEDS: SODIUM CHLOR 0.9% PF (SALINE LOCK) 10ML VIAL/SYR IV SCH ×2 (10:09→22:18)
[2019-11-24] MEDS: ENOXAPARIN SOD 30 MG/0.3 ML SYRINGE SC SCH (10:10)
[2019-11-24 13:00] VITALS: BP 100/60
--- NOTE | 2019-11-24 13:16 | NUR ---
RECEIVED A PHONE FROM JANETH [facility]. PASSWORD RECEIVED, PER JANETH PATIENT WILL BE TRANSFERRED TO [facility] ON SATURDAY.
[2019-11-24 17:00] VITALS: BP 110/63
--- NOTE | 2019-11-24 19:20 | NUR ---
RECEIVED PATIENT FROM DAY SHIFT RN. PATIENT RESTING IN BED. NO S/S OF DISTRESS NOTED. C/O GENERALIZED PAIN @ 6/10 AND NAUSEA AFTER MEDICATIONS GIVEN EARLIER. PATIENT UNDERSTOOD THE SCHEDULE OF PAIN AND NAUSEA MANAGEMENT. WILL COME BACK WHEN THE TIME IS DUE AND PER PATIENT REQUESTS. POC INSTRUCTED AND ENCOURAGED PATIENT TO CALL FOR [employer] ARCHITECT IF NEEDED. SPECIAL MATTRESS BED IN LOWEST POSITION WITH SIDE RAILS UP X 2. CALL HALL WITHIN REACH. ALARM ON. CONTINUE TO MONITOR FOR CHANGES Q1H AND PRN.
--- NOTE | 2019-11-24 20:06 | NUR ---
ASSISTED PATIENT TO BATHROOM. PATIENT WALKED SLOW WITH STEADY GAIT. NO S/S OF DISTRESS NOTED. CONTINUE CARE.
--- NOTE | 2019-11-24 21:03 | NUR ---
MRSA SWAB COLLECTED AND SENT. CONTINUE TO MONITOR.
[2019-11-24 21:45] VITALS: BP 100/54
--- NOTE | 2019-11-24 22:24 | NUR ---
MEDICATED PATIENT FOR PAIN @ 10/10 AND NAUSEA ORDERED. PATIENT PREFERRED NORCO AT THIS TIME. CONTINUE TO MONITOR.
[2019-11-24] MEDS: diphenhdrAMINE HCL 50 MG/1 ML VL IV PRN (22:28)
--- NOTE | 2019-11-24 23:15 | NUR ---
REASSESSED PAIN 7/10, NAUSEA GETTING BETTER. CONTINUE TO MONITOR.
[2019-11-25] VITALS (7 sets, daily range): BP systolic 97–108; BP diastolic 52–68
[2019-11-25] MEDS: ONDANSETRON HCL 4 MG/2 ML VIAL IV PRN ×5 (02:25→22:16)
[2019-11-25] MEDS: HYDROcodone-ACET 10/325MG TAB PO PRN ×5 (02:25→22:18)
--- NOTE | 2019-11-25 02:25 | NUR ---
MEDICATED PATIENT FOR PAIN @ 10/10 AND NAUSEA ORDERED. PATIENT PREFERRED NORCO AT THIS TIME. CONTINUE TO MONITOR.
--- NOTE | 2019-11-25 03:18 | NUR ---
REASSESSED PAIN @ 01/05. CONTINUE TO MONITOR.
--- NOTE | 2019-11-25 04:47 | NUR ---
PATIENT SLEEPING. NO S/S OF DISTRESS NOTED. CONTINUE CARE.
[2019-11-25 06:21] LABS: Basophils # (auto) 0.1 10 ^3/uL (0-0.2); Basophils % (auto) 1.2 % (0.0-2.0); Eosinophils # (auto) 0.1 10 ^3/uL (0-0.8); Eosinophils % (auto) 1.2 % (0.0-7.0); Hemoglobin 11.1 g/dL (12.2-16.2); Lymphocytes % (auto) 45.5 % (10.0-50.0); Mean Corpuscular Hemoglobin 24.8 pg (28.0-32.0); Mean Corpuscular Hgb Conc. 31.7 g/dL (32.0-36.0); Mean Corpuscular Volume 78.2 fL (80.0-100.0); Monocytes # (auto) 0.7 10 ^3/uL (0-1.3); Monocytes % (auto) 16.8 % (0.0-12.0); Neutrophils # (auto) 1.6 10 ^3/uL (1.6-8.6); Neutrophils % (auto) 35.3 % (37.0-80.0); Nucleated Red Blood Cells % 0.3 %; Platelet Count (auto) 390 10^3/uL (140-450); Red Blood Cells 4.47 10^6/uL (4.0-5.20); White Blood Cell 4.4 10^3/uL (4.4-10.8)
[2019-11-25 06:24] LABS: Red Cell Distribution Width 20.7 % (11.8-14.3)
[2019-11-25] MEDS: FUROSEMIDE 20 MG TAB PO SCH ×2 (06:34→18:28)
[2019-11-25] MEDS: METOCLOPRAMIDE HCL 10 MG TAB PO SCH ×4 (06:34→22:17)
[2019-11-25] MEDS: SOD CHL 0.9%/ KCL 20MEQ 1,000 ML IV SCH ×2 (06:35→14:45)
--- NOTE | 2019-11-25 06:41 | NUR ---
PATIENT C/O PAIN @ 10/, PREFERRED NORCO. MEDICATED PATIENT ORDERED. CONTINUE TO MONITOR.
[2019-11-25 06:50] LABS: Potassium 3.3 mmol/L (3.5-5.1)
[2019-11-25 06:59] LABS: BUN/Creatinine Ratio 15.4; Calcium 8.5 mg/dL (8.5-10.1)
[2019-11-25] MEDS: Ensure Enlive Strawberry 8oz Bottle PO SCH ×3 (08:00→18:00)
[2019-11-25] MEDS: ENOXAPARIN SOD 30 MG/0.3 ML SYRINGE SC SCH (09:23)
[2019-11-25] MEDS: MEGESTROL ACET 400MG/10ML ORAL SUSP PO SCH ×2 (09:23→22:16)
[2019-11-25] MEDS: PANTOPRAZOLE 40 MG/10 ML VIAL INJ IV SCH (09:23)
[2019-11-25] MEDS: MILK OF MAGNESIA 30ML SUSP PO SCH ×2 (09:24→22:00)
[2019-11-25] MEDS: SODIUM CHLOR 0.9% PF (SALINE LOCK) 10ML VIAL/SYR IV SCH ×2 (09:24→22:22)
[2019-11-25] MEDS: POTASSIUM EFFERVESENT TAB 25 MEQ PO SCH ×2 (09:24→22:00)
[2019-11-25] MEDS: HYDROCORTISONE 2.5% TOPICAL CREAM 30GM TUBE TOP SCH ×2 (09:24→22:00)
--- NOTE | 2019-11-25 09:54 | NUR ---
I called Dr. Zimmerman and left message asking if patient can be transported tomorrow with out IVF running, awaiting return call (per Zeenat at [facility] patient will be to [facility] in [place] tomorrow 11/25). I spoke with Zeenat at [facility] and let her know that I was waiting to hear back from Dr Zimmerman.
--- NOTE | 2019-11-25 10:02 | NUR ---
I spoke with nurse Herrera and updated her on the status of the transfer.
[2019-11-25] MEDS ORDERED: POTASSIUM EFFERVESENT TAB 25 MEQ PO ONE (13:00)
[2019-11-25 14:27] LABS: BUN/Creatinine Ratio 12.1; Calcium 8.3 mg/dL (8.5-10.1); Potassium 3.6 mmol/L (3.5-5.1)
--- NOTE | 2019-11-25 19:12 | NUR ---
OPENING SHIFT NOTE: ASSUMED CARE OF PATIENT. PATIENT IS AWAKE, ALERT AND ORIENTED X 4. NO S/S OF SOB OR DISTRESS, PATIENT COMPLAINS OF PAIN 8/10 ON NUMERIC SCALE, WILL MEDICATE FOR PAIN. BED IS LOW, LOCKED, TWO SIDE RAILS RAISED, AND CALL HALL WITHIN REACH. PATIENT UP TO THE RESTROOM, AMBULATES INDEPENDENTLY AND GAIT IS EVEN. INSTRUCTED ON POC AND TO CALL FOR ASSISTANCE, PATIENT VERBALIZES UNDERSTANDING. WILL CONTINUE TO MONITOR FOR CHANGES Q1 HR AND PRN.
--- NOTE | 2019-11-25 19:20 | NUR ---
DR. Radha BARTON AT THE BEDSIDE.
--- NOTE | 2019-11-25 22:00 | NUR ---
PATIENT REFUSED MED. PATIENT REFUSED KLOR-CON 25 MEQ BECAUSE SHE STATES IT GIVES HER AN UPSET STOMACH AND THAT SHE ALREADY HAD THAT MEDICATION EARLIER IN THE DAY AND DOES NOT BELIEVE SHE NEEDS IT AGAIN. PATIENT ALSO REFUSED HER MILK OF MAGNESIA BECAUSE SHE HAS BEEN HAVING FREQUENT STOOLS. EDUCATION PROVIDED, PATIENT STILL REFUSES MEDICATION.
[2019-11-25] MEDS: diphenhdrAMINE HCL 50 MG/1 ML VL IV PRN (22:17)
--- NOTE | 2019-11-26 | NUR ---
PICC LINE REMOVED: PICC TO UPPER LEFT ARM REMOVED USING CLEAN TECHNIQUE, CATHETER INTACT AND PRESSURE DRESSING APPLIED. PATIENT TOLERATED WELL.
[2019-11-26] MEDS: MORPHINE SULF INJ 2 MG/ML SYRINGE 1ML IV PRN (00:27)
[2019-11-26] MEDS: SOD CHL 0.9%/ KCL 20MEQ 1,000 ML IV SCH (00:45)
--- NOTE | 2019-11-26 01:14 | NUR ---
MRSA SWAB TAKEN AND SENT TO LAB.
[2019-11-26 01:15] VITALS: BP 107/62
[2019-11-26 05:04] VITALS: BP 99/51
[2019-11-26] MEDS: HYDROcodone-ACET 10/325MG TAB PO PRN (05:22)
--- NOTE | 2019-11-26 05:56 | NUR ---
RODERICK FROM [employer] CALLED TO INFORM THAT SOMEONE WILL BE ARRIVING WITH THE PATIENT'S BELONGINGS SOON.
[2019-11-26] MEDS: FUROSEMIDE 20 MG TAB PO SCH (06:00)
[2019-11-26] MEDS: METOCLOPRAMIDE HCL 10 MG TAB PO SCH (06:19)
--- NOTE | 2019-11-26 06:30 | NUR ---
LIEUTENANT MARY LUNDBERGRIAM IS AT THE BEDSIDE.
--- NOTE | 2019-11-26 07:05 | NUR ---
Discharge instructions given as ordered. All questions and concerns addressed. Patient verbalized understanding. Medication reconciliation form completed and copy given to patient. Patient picked up by BOZENA and accompanied by lieutenant Casillas. No distress noted at time of departure.
== END 2019-11-26 07:05 | DRG 329 ==
LOC: EEVIPCON 13:35 → ER 13:35 → TELE 13:36 → TELE-EAST 17:18 → EAST 10-27 09:14 → WEST WING 11-02 19:34
PROVIDERS: ADMIT Internal Medicine; ATTEND Internal Medicine
PROC: 0DBH8ZX Excision of Cecum, Via Natural or Artificial Opening Endoscopic, Diagnostic (ICD-10-PCS; 2019-10-07)
PROC: 30233N1 Transfusion of Nonautologous Red Blood Cells into Peripheral Vein, Percutaneous Approach (ICD-10-PCS; 2019-10-07)
PROC: 0DBK8ZX Excision of Ascending Colon, Via Natural or Artificial Opening Endoscopic, Diagnostic (ICD-10-PCS; 2019-10-07)
PROC: 0DBU0ZX Excision of Omentum, Open Approach, Diagnostic (ICD-10-PCS; 2019-10-09)
PROC: 0DTF0ZZ Resection of Right Large Intestine, Open Approach (ICD-10-PCS; 2019-10-09)
PROC: 0D1A0ZA Bypass Jejunum to Jejunum, Open Approach (ICD-10-PCS; principal; 2019-10-09 13:11)
PROC: 02HV33Z Insertion of Infusion Device into Superior Vena Cava, Percutaneous Approach (ICD-10-PCS; 2019-10-19)
DX: C18.0 Malignant neoplasm of cecum (principal); E43 Unspecified severe protein-calorie malnutrition; C18.2 Malignant neoplasm of ascending colon; N39.0 Urinary tract infection, site not specified; C78.5 Secondary malignant neoplasm of large intestine and rectum; C78.6 Secondary malignant neoplasm of retroperitoneum and peritoneum; E87.6 Hypokalemia; R55 Syncope and collapse; Z98.84 Bariatric surgery status; I25.10 Atherosclerotic heart disease of native coronary artery without angina pectoris; K80.20 Calculus of gallbladder without cholecystitis without obstruction; K66.0 Peritoneal adhesions (postprocedural) (postinfection); D72.829 Elevated white blood cell count, unspecified; K52.9 Noninfective gastroenteritis and colitis, unspecified; J45.909 Unspecified asthma, uncomplicated; I50.9 Heart failure, unspecified; D63.0 Anemia in neoplastic disease; I11.0 Hypertensive heart disease with heart failure; K59.00 Constipation, unspecified; E66.01 Morbid (severe) obesity due to excess calories; M54.5 Low back pain; I25.2 Old myocardial infarction; Z80.0 Family history of malignant neoplasm of digestive organs; Z80.1 Family history of malignant neoplasm of trachea, bronchus and lung; Z82.3 Family history of stroke; Z85.038 Personal history of other malignant neoplasm of large intestine; Z86.73 Personal history of transient ischemic attack (TIA), and cerebral infarction without residual deficits; Z88.6 Allergy status to analgesic agent; Z88.5 Allergy status to narcotic agent; Z90.710 Acquired absence of both cervix and uterus; Z91.041 Radiographic dye allergy status; S09.90XA Unspecified injury of head, initial encounter; W19.XXXA Unspecified fall, initial encounter; Y93.89 Activity, other specified; Y92.89 Other specified places as the place of occurrence of the external cause; Y99.8 Other external cause status; Z68.32 Body mass index [BMI] 32.0-32.9, adult; K21.9 Gastro-esophageal reflux disease without esophagitis; D50.0 Iron deficiency anemia secondary to blood loss (chronic)
CPT/HCPCS: 36415; 36569; 45380; 70450; 71045; 74022; 74177; 74246; 76700; 80048; 80053; 80074; 81001; 82040; 82150; 82270; 82378; 82962; 83615; 83690; 83735; 84100; 84132; 84443; 84478; 85007; 85025; 85027; 85610; 85730; 86038; 86850; 86900; 86901; 86920; 87040; 87045; 87081; 87086; 87427; 87493; 93005; 93306; 93970; 93971; 96361; 96365; 96375; 97110; 97116; 97530; C9113; G0378; J0696; J1100; J1450; J1815; J1956; J2001; J2250; J2405; J3480; J3490; J7060; J7131